=== PATIENT | female | born 1935 | race Caucasian/White ===

== ENCOUNTER → 2016-12-24 | Outpatient (CLI) | payer OTHER ==
[~2016-12-24] MED LIST: AMLO-110 PO; ATOR10TA82 PO; GLC/500 PO; LOSA50TA6 PO; LSX20 PO; METO100T14 PO; POTA-65 PO
--- NOTE | 2016-12-24 16:24 | MAMMOGRAPHY REPORT ---
BILATERAL DIGITAL SCREENING MAMMOGRAM WITH CAD: 12/24/2016 CLINICAL HISTORY: Routine screening. TECHNIQUE: Bilateral CC and MLO views were obtained. Current study was also evaluated with a Comput er Aided Detection (CAD) system. COMPARISON: Comparison is made to exams dated: 12/19/2015 mammogram, 07/06/2013 mammogram, 2 mammogram, 06/22/2011 ultrasound, 06/22/2011 mammogram, and 06/19/2011 mammogram - [facility]. BREAST COMPOSITION: There are scattered areas of fibroglandular density in both breasts. FINDINGS: The parenchymal pattern is unchanged. No developing mass, architectural distortion or clu ster of suspicious microcalcifications is seen in either breast. IMPRESSION: ACR BI-RADS CATEGORY 2: BENIGN There is no mammographic evidence of malignancy. A 1 year screening mammogram is recommended. The p atient will receive written notification of the results. Approximately 10% of breast cancers are not detected with mammography. A negative mammographic repor t should not delay biopsy if a clinically suggestive mass is present. Tonia Saldivar M.D. ay/:12/24/2016 15:33:22 Cop Examiner: Brennan Donohue RT(R)(M), [facility] letter sent: Normal 1/2 BI-RADS Code: ACR BI-RADS Category 2: Benign
== END | disposition home or self-care (01) ==
LOC: C.MAMM 09:51
PROVIDERS: ATTEND Nurse Practitioner Family
DX: Z12.31 Encounter for screening mammogram for malignant neoplasm of breast (principal)

== ENCOUNTER → 2018-01-06 | Outpatient (CLI) | payer OTHER ==
--- NOTE | 2018-01-07 12:47 | MAMMOGRAPHY REPORT ---
BILATERAL DIGITAL SCREENING MAMMOGRAM TOMOSYNTHESIS WITH CAD: 01/06/2018 CLINICAL HISTORY: Routine screening. Patient has no complaints. TECHNIQUE: Breast tomosynthesis in addition to standard 2D mammography was performed. Current study was also evaluated with a Computer Aided Detection (CAD) system. COMPARISON: Comparison is made to exams dated: 12/24/2016 mammogram, 12/19/2015 mammogram, 07/06/2013 mammogram, 07/02/2012 mammogram, 06/22/2011 mammogram, and 06/19/2011 mammogram - [facility]. BREAST COMPOSITION: There are scattered areas of fibroglandular density in both breasts. FINDINGS: No suspicious mass, architectural distortion or cluster of microcalcifications is seen. IMPRESSION: ACR BI-RADS CATEGORY 1: NEGATIVE There is no mammographic evidence of malignancy. A 1 year screening mammogram is recommended. The pa tient will receive written notification of the results. Approximately 10% of breast cancers are not detected with mammography. A negative mammographic report should not delay biopsy if a clinically suggestive mass is present. Tonia rendon/abdelrahman:01/06/2018 16:52:17 Plastic Surgery Manager: Charisse ALLAN(R)(M), [facility] letter sent: Normal 1/2 BI-RADS Code: ACR BI-RADS Category 1: Negative
== END | disposition home or self-care (01) ==
LOC: C.MAMM 09:52
PROVIDERS: ATTEND Nurse Practitioner Family
DX: Z12.31 Encounter for screening mammogram for malignant neoplasm of breast (principal)

== ENCOUNTER 2022-04-21 12:03 | Inpatient (IN) ==
[2022-04-21] MEDS ORDERED: SODIUM CHLORIDE 0.9% 1000ML 1,000 ML IV STA (12:11)
--- NOTE | 2022-04-21 12:35 | Emergency Department Note ---
Impression & Plan Hypoxia, Fever, Bilateral pneumonia ED Provider Note INFORMANT: Patient and daughter ED PROVIDER(S): Jose Elias Cruz MD CHIEF COMPLAINT: Fever PLAN: Disposition: Admitted Condition: Good Outpatient prescription management: none Referral: None MEDICAL DECISION MAKING: Patient presented because of a flulike illness and fever. She was found to be hypoxic. The patient had a work-up initiated. Chest x-ray, laboratory testing, and blood cultures performed. Bio fire swab performed. Bio fire swab did show a rhinovirus infection. CBC and chemistry panel were unremarkable. The carissa ent's chest x-ray was concerning to me and a CT scan of the chest without contrast was performed. There is bilateral pneumonia present. The patient did respond well to supplemental oxygen. She was in good spirits. I did discuss the need for her to be admitted to the hospital and daughter was present. They were in agreement. The patient was treated with IV doxycycline and IV cefepime. Consultation was made with Dr. Bart Davila of the [facility] service. Patient was evaluated in the ER for further management. After patient was evaluated by internal medicine she did require additional supplemental oxygen. Patient's vital signs and EMR noted that she was tachycardic. Patient was transferred to the PCU Triage Nursing notes reviewed and agree them. Vital Signs: reviewed and remarkable for hypoxia Differential diagnosis: Viral syndrome, otitis, pharyngitis, pneumonia, influenza, meningitis, urinary tract infection, sepsis, bacteremia, as well as other pathologies. Diagnostics interpreted by me: ECG: none Cardiac Monitoring: Cardiac monitoring ordered by me: The patient was placed on continuous cardiac monitoring and observed. It revealed a normal sinus rhythm at 82 beats per minute without ectopy or evidence of dysrhythmia. Imaging studies: CT scan and chest x-ray as above HPI: The patient is a 87year old female who presents to the Emergency Room with complaints of fever. This started 4 days ago and is worsening. The patient also notes the following associated symptoms, nausea that resolved, cold symptoms. The patient has found no relieving factors. Current pain is rated as 0/10. Patient reportedly was tested negative at home for COVID twice. She was in contact with a friend that had a flulike illness and was tested for negative for COVID. That contact's illness has resolved. Pt denies LOC, headache, diaphoresis, visual changes, neck pain, chest pain, breathing difficulties, current vomiting, abdominal pain, back pain, melena, hematochezia, urinary symptoms, numbness, weakness, lymphadenopathy, rash, or other complaints. ROS: See above HPI for pertinent positives & negatives. A total of 10 systems reviewed and were otherwise negative. PAST MEDICAL HISTORY:See Below , hypertension, diabetes PAST SURGICAL HISTORY:See Below, FAMILY HISTORY:See Below SOCIAL HISTORY:See Below, retired HOME MEDICATIONS:See Below ALLERGIES:See Below VITALS:See Below PHYSICAL EXAMINATION: GENERAL: Awake, alert, mildly ill-appearing, in no distress HENT: Normocephalic, atraumatic. Oropharynx unremarkable. EYES: Normal conjunctiva. Sclera non-icteric. NECK: Inspection normal. Non-tender. Supple. No nuchal rigidity. FROM. No masses. RESPIRATORY: Diminished bilaterally otherwise clear to auscultation. No wheezes. No rales. Normal respiratory effort. CARDIAC: Normal rate. Normal rhythm. No murmurs. No rubs. Extremities warm and well perfused. Pulses equal. No JVD. GI: Soft, non-distended. No tenderness to palpation. No rebound or guarding. No masses. RECTAL: Deferred. MUSCULOSKELETAL: Atraumatic. Chest examination reveals no tenderness. The back is symmetrical on inspection without obvious abnormality. There is no CVA tenderness to palpation. No joint edema. LOWER EXTREMITIES: Calves are equal size bilaterally and non-tender. No edema. No discoloration. NEURO: Normal sensorium. No sensory or motor deficits noted. SKIN: No rash or jaundice noted. Jose Elias Cruz MD Past Med/Surg History Medical History Diabetes History of DVT (deep vein thrombosis) AGE 21'S History of kidney stones HTN (hypertension) Hypercholesteremia Surgical History History of cataract surgery History of cholecystectomy History of colonoscopy History of D&C MULTIPLE History of eye surgery History of hysterectomy History of vein stripping 30 YR AGO Social History Smoking Status: Never smoker Second Hand Exposure: Yes (hx); Hx Alcohol Use: No Hx Substance Use: No Preferred Language: Irish Communication Ability: Effective Bus Assistant Required: No Beliefs That Will Affect Care: None Current Living Situation: Alone Feels Safe at Home: Yes Assistive Devices: Denture - Upper and Glasses Allergies Allergies Allergy/AdvReac Type Severity Reaction Status Date / Time Sulfa (Sulfonamide Allergy Unknown RASH Verified 04/21/22 15:57 Antibiotics) Home Meds Home Medications Medication Instructions Recorded Confirmed amlodipine 5 mg tablet 5 mg PO HS 06/28/21 04/21/22 aspirin 81 mg tablet,delayed 81 mg PO HS 06/28/21 04/21/22 release coenzyme Q10 100 mg capsule 100 mg PO DAILY 06/28/21 04/21/22 (CoQ-10) furosemide 40 mg tablet 40 mg PO QAM 06/28/21 04/21/22 losartan 50 mg tablet 50 mg PO QAM 06/28/21 04/21/22 metformin 500 mg tablet 500 mg PO BID 06/28/21 04/21/22 metoprolol succinate 100 mg 100 mg PO QAM 06/28/21 04/21/22 tablet,extended release 24 hr potassium chloride 20 mEq 20 meq PO QAM 06/28/21 04/21/22 tablet,extended release(part/cryst) (Klor-Con M) vitamin E 670 mg (1,000 unit) 1,000 unit PO DAILY 06/28/21 04/21/22 capsule atorvastatin 10 mg tablet 10 mg PO DAILY 04/21/22 04/21/22 Results & Data (ED) Vital Signs Vital Signs - 24 hr 04/21/22 12:07 04/21/22 12:11 04/21/22 13:34 Temperature 36.6 C Temperature Source Oral Pulse Rate 100 H Pulse Rate [Apical] 88 85 Pulse Rhythm Regular Pulse Strength Normal Respiratory Rate 16 20 20 Respiratory Effort / Characteristics Non-Labored Spontaneous Non-Labored Spontaneous Non-Labored Spontaneous Respiratory Depth Normal Normal Normal Respiratory Pattern Regular Regular Regular Blood Pressure 117/56 L Blood Pressure [Right Arm] 120/87 136/56 L Blood Pressure Mean 76 Blood Pressure Mean [Right Arm] 98 82 Blood Pressure Position Sitting Blood Pressure Position [Right Arm] Sitting Sitting Pulse Oximetry 88 L 95 94 Oxygen Delivery Method Room Air Nasal Cannula Nasal Cannula Oxygen Flow Rate 3 3 Sepsis Recent Fever Within 48 Hours No Sepsis New/Unexplained Change in Mental Status No Sepsis Action Taken by Nursing No Action Required 04/21/22 15:00 Temperature Temperature Source Pulse Rate Pulse Rate [Apical] 93 H Pulse Rhythm Pulse Strength Respiratory Rate 18 Respiratory Effort / Characteristics Non-Labored Spontaneous Respiratory Depth Normal Respiratory Pattern Regular Blood Pressure Blood Pressure [Right Arm] 159/57 H Blood Pressure Mean Blood Pressure Mean [Right Arm] 91 Blood Pressure Position Blood Pressure Position [Right Arm] Sitting Pulse Oximetry 93 Oxygen Delivery Method Nasal Cannula Oxygen Flow Rate 3 Sepsis Recent Fever Within 48 Hours Sepsis New/Unexplained Change in Mental Status Sepsis Action Taken by Nursing Laboratory Data Result diagrams: 04/21/22 12:26 04/21/22 12: Lab Results 04/21/22 04/21/22 04/21/22 Range/Units 12: 12: 12: WBC 8.70 (4.8-10.8) K/ul RBC 4.21 (3.93-5.22) M/uL Hgb 11.9 L (12.0-16.0) g/dl Hct 37.2 (34.1-44.9) % MCV 88.4 (80.0-100.0) fL MCH 28.3 (25.0-34.0) pg MCHC 32.0 (32.0-36.0) g/dL RDW Std Deviation 45.6 (36.4-46.3) fL RDW Coeff of Isa 14.3 (11.5-14.5) % Plt Count 128 L (130-400) K/uL MPV 11.9 (9.4-12.3) fL Immature Gran % (Auto) 1.1 % Neut % (Auto) 76.7 % Lymph % (Auto) 13.1 % Camp % (Auto) 8.6 % Eos % (Auto) 0.2 % Baso % (Auto) 0.3 % Neut # (Auto) 6.66 H (1.4-6.5) K/uL Lymph # (Auto) 1.14 L (1.2-3.4) K/uL Camp # (Auto) 0.75 (0.24-0.82) K/uL Eos # (Auto) 0.02 (0-0.50) K/uL Baso # (Auto) 0.03 (0-0.2) K/uL Immature Gran # (Auto) 0.10 H (0.00-0.02) K/uL Sodium 135 L (136-145) mmol/L Potassium 3.5 (3.5-5.1) mmol/L Chloride 100 (98-107) mmol/L Carbon Dioxide 27 (21-32) mmol/L Anion Gap 8 (3-11) BUN 20 (6-23) mg/dl Creatinine 1.21 H (0.6-1.2) mg/dl Est Cr Clr Drug Dosing 32.9 ml/min Est GFR ( Amer) 46.9 ml/min Est GFR (Non-Af Amer) 40.5 ml/min BUN/Creatinine Ratio 16.5 (10-20) Glucose 133 H (70-99(Fasting)) mg/dl Lactate 1.5 (0.4-2.0) mmol/L Calcium 9.7 (8.5-10.1) mg/dl Total Bilirubin 0.7 (0.2-1.0) mg/dl AST 22 (13-39) U/L ALT 17 (7-52) U/L Alkaline Phosphatase 54 (34-104) U/L Troponin I High Sens 12.0 (0-14) pg/ml Total Protein 7.9 (6.0-8.3) gm/dl Albumin 3.5 (3.4-5.0) gm/dl Globulin 4.4 H (2.5-4.0) gm/dl Albumin/Globulin Ratio 0.8 L (0.9-2) Procalcitonin (0-0.5) ng/ml Adenovirus (PCR) (NotDetected) B. pertussis DNA (PCR) (NotDetected) B.parapertussis DNA PCR (NotDetected) C. pneumoniae DNA (PCR) (NotDetected) Coronavirus OC43 (PCR) (NotDetected) Coronavirus HKU1 (PCR) (NotDetected) Coronavirus 229E (PCR) (NotDetected) SARS-CoV-2 (PCR) (NotDetected) Coronavirus NL63 (PCR) (NotDetected) Human Metapneumovir PCR (NotDetected) Influenza Type A (PCR) (NotDetected) Influenza Type B (PCR) (NotDetected) M. pneumoniae (PCR) (NotDetected) Parainfluenza 1 (PCR) (NotDetected) Parainfluenza 2 (PCR) (NotDetected) Parainfluenza 3 (PCR) (NotDetected) Parainfluenza 4 (PCR) (NotDetected) RSV (PCR) (NotDetected) Entero/Rhino (PCR) (NotDetected) 04/21/22 04/21/22 Range/Units 12:26 12:26 WBC (4.8-10.8) K/ul RBC (3.93-5.22) M/uL Hgb (12.0-16.0) g/dl Hct (34.1-44.9) % MCV (80.0-100.0) fL MCH (25.0-34.0) pg MCHC (32.0-36.0) g/dL RDW Std Deviation (36.4-46.3) fL RDW Coeff of Isa (11.5-14.5) % Plt Count (130-400) K/uL MPV (9.4-12.3) fL Immature Gran % (Auto) % Neut % (Auto) % Lymph % (Auto) % Camp % (Auto) % Eos % (Auto) % Baso % (Auto) % Neut # (Auto) (1.4-6.5) K/uL Lymph # (Auto) (1.2-3.4) K/uL Camp # (Auto) (0.24-0.82) K/uL Eos # (Auto) (0-0.50) K/uL Baso # (Auto) (0-0.2) K/uL Immature Gran # (Auto) (0.00-0.02) K/uL Sodium (136-145) mmol/L Potassium (3.5-5.1) mmol/L Chloride (98-107) mmol/L Carbon Dioxide (21-32) mmol/L Anion Gap (3-11) BUN (6-23) mg/dl Creatinine (0.6-1.2) mg/dl Est Cr Clr Drug Dosing ml/min Est GFR ( Amer) ml/min Est GFR (Non-Af Amer) ml/min BUN/Creatinine Ratio (10-20) Glucose (70-99(Fasting)) mg/dl Lactate (0.4-2.0) mmol/L Calcium (8.5-10.1) mg/dl Total Bilirubin (0.2-1.0) mg/dl AST (13-39) U/L ALT (7-52) U/L Alkaline Phosphatase (34-104) U/L Troponin I High Sens (0-14) pg/ml Total Protein (6.0-8.3) gm/dl Albumin (3.4-5.0) gm/dl Globulin (2.5-4.0) gm/dl Albumin/Globulin Ratio (0.9-2) Procalcitonin 6.43 H (0-0.5) ng/ml Adenovirus (PCR) Not Detected (NotDetected) B. pertussis DNA (PCR) Not Detected (NotDetected) B.parapertussis DNA PCR Not Detected (NotDetected) C. pneumoniae DNA (PCR) Not Detected (NotDetected) Coronavirus OC43 (PCR) Not Detected (NotDetected) Coronavirus HKU1 (PCR) Not Detected (NotDetected) Coronavirus 229E (PCR) Not Detected (NotDetected) SARS-CoV-2 (PCR) Not Detected (NotDetected) Coronavirus NL63 (PCR) Not Detected (NotDetected) Human Metapneumovir PCR Not Detected (NotDetected) Influenza Type A (PCR) Not Detected (NotDetected) Influenza Type B (PCR) Not Detected (NotDetected) M. pneumoniae (PCR) Not Detected (NotDetected) Parainfluenza 1 (PCR) Not Detected (NotDetected) Parainfluenza 2 (PCR) Not Detected (NotDetected) Parainfluenza 3 (PCR) Not Detected (NotDetected) Parainfluenza 4 (PCR) Not Detected (NotDetected) RSV (PCR) Not Detected (NotDetected) Entero/Rhino (PCR) DETECTED A* (NotDetected) Administered Medications Sodium Chloride (Nss 1000ml) 1,000 mls @ 125 mls/hr IV .Q8H STA Stop: 04/21/22 20:10 Last Admin: 04/21/22 12:31 Dose: 125 mls/hr Documented By: ELICIA Discontinued Medications Albuterol (Albuterol 0.083% Nebu Soln 3 Ml Vial) Confirm Administered Dose 2.5 mg .ROUTE .STK-MED ONE Stop: 04/21/22 16:49 Last Admin: 04/21/22 16:54 Dose: 2.5 mg Documented By: WILL Furosemide (Furosemide 40 Mg/4 Ml Vial) 40 mg IV ONE ONE Stop: 04/21/22 15:43 Last Admin: 04/21/22 15:50 Dose: 40 mg Documented By: ELICIA Cefepime HCl (Maxipime) 2,000 mg in 20 mls @ 5 mls/min IV NOW STA; Protocol Stop: 04/21/22 15:16 Last Admin: 04/21/22 15:20 Dose: 5 mls/min Documented By: ELICIA Doxycycline Hyclate 100 mg/ (Dextrose) 110 mls @ 50 mls/hr IV NOW STA Stop: 04/21/22 17:24 Last Admin: 04/21/22 15:50 Dose: 50 mls/hr Documented By: ELICIA Imaging Data Radiologist's Impression: Chest X-Ray 04/21/22 12:11 XR chest 1V portable CLINICAL HISTORY: Fever,hypoxia TECHNIQUE: Single frontal radiograph of the chest was obtained. Comparison: None available at the time of this dictation. FINDINGS: No lines and tubes are seen. Cardiomegaly is noted. The lungs are clear. No ev idence of pleural effusion or pneumothorax. IMPRESSION: No acute chest disease. ACT 112: Negative or not required by law. Electronically signed by: Fuad Alanis M.D. 04/21/2022 1:[address] 04/21/22 14:04 CT chest diagnostic wo con CLINICAL HISTORY: fever,hypoxia, yennifer WBC and procal. ? PNA TECHNIQUE: Multidetector row helical CT of the chest was performed. Coronal and sagittal reformations were obtained. Automated dose lowering techniques and/or adjustment according to patient size were utilized for this exam. CT DOSE: 274.99 mGy.cm Comparison: Comparison is made to chest radiograph of 04/21/2022 and 12/22/2015 FINDINGS: Lungs and pleura: Scattered foci of nodular consolidation in the bilateral lungs. Heart and pericardium: Cardiomegaly is seen with biatrial enlargement. Vessels: Moderate atherosclerotic changes in the aorta and coronary arteries. Mediastinum and jacob: Subcentimeter lymph nodes are seen. Chest wall and lower neck: Unremarkable. Abdomen: Unremarkable. Bones: Degenerative changes in the thoracic spine. IMPRESSION: Multifocal airspace opacities are seen compatible with pneumonia and/or aspiration. ACT 112: Negative or not required by law. Electronically signed by: Fuad Alanis M.D. 04/21/2022 3:09 PM Discharge Plan Visit Data Chief Complaint: Fever Stated Complaint: FEVER, COUGH, WEAK ED Provider: Jose Elias Cruz Discharge Problem: Hypoxia, Fever, Bilateral pneumonia
[2022-04-21 12:58] LABS: Hematocrit (blood only) 37.2 % (34.1-44.9); Hemoglobin 11.9 g/dl (12.0-16.0); Mean Corpuscular Hemoglobin 28.3 pg (25.0-34.0); Mean Corpuscular Volume 88.4 fL (80.0-100.0); Mean Platelet Volume 11.9 fL (9.4-12.3); Platelet Count 128 K/uL (130-400); RDW Coefficient of Variation 14.3 % (11.5-14.5); RDW Standard Deviation 45.6 fL (36.4-46.3); Red Blood Count 4.21 M/uL (3.93-5.22)
[2022-04-21 13:04] LABS: Albumin Globulin Ratio 0.8 (0.9-2); Albumin Level 3.5 gm/dl (3.4-5.0); BUN Creatinine Ratio 16.5 (10-20); Bilirubin,Total 0.7 mg/dl (0.2-1.0); Calcium 9.7 mg/dl (8.5-10.1); Creatinine Clr Calc Pharmacy 32.9 ml/min; Est GFR (African American) 46.9 ml/min; Est GFR (Non-African American) 40.5 ml/min; Globulin 4.4 gm/dl (2.5-4.0); Potassium 3.5 mmol/L (3.5-5.1); Total Protein 7.9 gm/dl (6.0-8.3)
[2022-04-21 13:15] LABS: Basophils # (auto) 0.03 K/uL (0-0.2); Basophils % (auto) 0.3 %; Eosinophils # (auto) 0.02 K/uL (0-0.50); Eosinophils % (auto) 0.2 %; Immature Granulocytes % (auto) 1.1 %; Lymphocytes # (auto) 1.14 K/uL (1.2-3.4); Lymphocytes % (auto) 13.1 %; Monocytes # (auto) 0.75 K/uL (0.24-0.82); Monocytes % (auto) 8.6 %; Neutrophils # (auto) 6.66 K/uL (1.4-6.5); Neutrophils % (auto) 76.7 %
--- NOTE | 2022-04-21 13:49 | XRay Report ---
XR chest 1V portable CLINICAL HISTORY: Fever,hypoxia TECHNIQUE: Single frontal radiograph of the chest was obtained. Comparison: None available at the time of this dictation. FINDINGS: No lines and tubes are seen. Cardiomegaly is noted. The lungs are clear. No evidence of pleural effus ion or pneumothorax. IMPRESSION: No acute chest disease. ACT 112: Negative or not required by law. Electronically signed by: Fuad Alanis M.D. 04/21/2022 1:47 PM
--- NOTE | 2022-04-21 13:50 | History & Physical Report ---
Date of Service April 21, 2022 Assessment & Plan (1) Hypercholesteremia: (2) HTN (hypertension): (3) Diabetes: Plan: -Hold CHANGE ATTENDANT metformin - (4) Hypoxia: Plan: -Admit to medicine -Patient found to be hypoxic at 88% on RA, currently stable on 3L NC -Likely due to bacterial pneumonia noted on CXR and procal of 6.43 -Started on in the ED -PRN albuterol, incentive spirometry, flutter therapy -Wean O2 as able -Follow infectious RODRIGUEZ and tailor abx as able (5) Fever: Plan: -See hypoxia History of Present Illness Chief Complaint: Fever Primary Care Provider: VINICIO Purdy Beata is an 87 year old female with a PMH significant for DM, HTN, hypercholesteremia, kidney stones, and previous DVT's who presented to the [facility] ED on 04/21/22 with a chief complaint of fever and illness. IN the ED the patient was found to be hypoxic with an SpO2 of 88% on RA and was placed on 3L NC. Labs were significant for a procal of 6.43, chest xray revealed She was given a 1L NSS bolus Allergies Allergy/AdvReac Type Severity Reaction Status Date / Time Sulfa (Sulfonamide Allergy Unknown RASH Verified 07/19/21 07:01 Antibiotics) Home Medications Medication Instructions Recorded Confirmed Type amlodipine 5 mg tablet 5 mg PO HS 06/28/21 07/19/21 History aspirin 81 mg tablet,delayed 81 mg PO HS 06/28/21 07/19/21 History release coenzyme Q10 100 mg capsule 100 mg PO DAILY 06/28/21 07/19/21 History (CoQ-10) furosemide 40 mg tablet 40 mg PO QAM 06/28/21 07/19/21 History losartan 50 mg tablet 50 mg PO QAM 06/28/21 07/19/21 History metformin 500 mg tablet 500 mg PO QAM 06/28/21 07/19/21 History metoprolol succinate 100 mg 100 mg PO QAM 06/28/21 07/19/21 History tablet,extended release 24 hr potassium chloride 20 mEq 20 meq PO HS 06/28/21 07/19/21 History tablet,extended release(part/cryst) (Klor-Con M) vitamin E 670 mg (1,000 unit) 1,000 unit PO DAILY 06/28/21 07/19/21 History capsule Past Med/Surg History Medical History (Updated 04/21/22 @ 13:49 by Dereck Gonsales PA-C) Diabetes History of DVT (deep vein thrombosis) AGE 21'S History of kidney stones HTN (hypertension) Hypercholesteremia Surgical History History of cataract surgery History of cholecystectomy History of colonoscopy History of D&C MULTIPLE History of eye surgery History of hysterectomy History of vein stripping 30 YR AGO Social History Smoking Status: Never smoker Second Hand Exposure: Yes (hx); Hx Alcohol Use: No Hx Substance Use: No Preferred Language: Swedish Communication Ability: Effective Plate Finisher Required: No Beliefs That Will Affect Care: None Current Living Situation: Alone Feels Safe at Home: Yes Assistive Devices: Denture - Upper and Glasses Results & Data Results & Data ([facility]) Vital Signs (Past 12 Hours) Vital Signs Temp Pulse Pulse Resp BP BP Pulse Ox 04/21/22 13:34 85 20 136/56 L 94 04/21/22 12:11 88 20 120/87 95 04/21/22 12:07 36.6 C 100 H 16 117/56 L 88 L O2 Del Method O2 Flow Rate 04/21/22 13:34 Nasal Cannula 3 04/21/22 12:11 Nasal Cannula 3 04/21/22 12:07 Room Air Laboratory Results Abnormal lab results 04/21/22 04/21/22 04/21/22 Range/Units 12:26 12:26 12:26 Hgb 11.9 L (12.0-16.0) g/dl Plt Count 128 L (130-400) K/uL Neut # (Auto) 6.66 H (1.4-6.5) K/uL Lymph # (Auto) 1.14 L (1.2-3.4) K/uL Immature Gran # (Auto) 0.10 H (0.00-0.02) K/uL Sodium 135 L (136-145) mmol/L Creatinine 1.21 H (0.6-1.2) mg/dl Glucose 133 H (70-99(Fasting)) mg/dl Globulin 4.4 H (2.5-4.0) gm/dl Albumin/Globulin Ratio 0.8 L (0.9-2) Procalcitonin 6.43 H (0-0.5) ng/ml PG Care Time/CCT Total # of Minutes Spent Total Time Spent with Patient: Total time spent is greater than 50% in coordination of care (as documented) at patient's floor/unit and/or counseling patient: Coding Diagnoses Hypercholesteremia E78.00 HTN (hypertension) I10 Diabetes E11.9 Hypoxia R09.02 Fever R50.9
[2022-04-21 13:52] LABS: Adenovirus PCR Not Detected (NotDetected); Bordetella parapertussis PCR Not Detected (NotDetected); Bordetella pertussis PCR Not Detected (NotDetected); Chlamydia pneumoniae PCR Not Detected (NotDetected); Coronavirus 229E PCR Not Detected (NotDetected); Coronavirus CoV-2 (COVID19)PCR Not Detected (NotDetected); Coronavirus HKU1 PCR Not Detected (NotDetected); Coronavirus NL63 PCR Not Detected (NotDetected); Coronavirus OC43PCR Not Detected (NotDetected); Human Metapneumovirus PCR Not Detected (NotDetected); Influenza A PCR Not Detected (NotDetected); Influenza B PCR Not Detected (NotDetected); Mycoplasma pneumoniae PCR Not Detected (NotDetected); Parainfluenza Virus 1 PCR Not Detected (NotDetected); Parainfluenza Virus 2 PCR Not Detected (NotDetected); Parainfluenza Virus 3 PCR Not Detected (NotDetected); Parainfluenza Virus 4 PCR Not Detected (NotDetected); Respiratory Syncytial VirusPCR Not Detected (NotDetected)
[2022-04-21 13:57] LABS: Rhinovirus/Enterovirus PCR DETECTED (NotDetected)
--- NOTE | 2022-04-21 14:17 | History & Physical Report ---
Date of Service April 21, 2022 Assessment & Plan (1) Acute respiratory failure with hypoxia: Plan: -Admit to PCU/Tele -Currently afebrile, hemodynamically stable, and stable on 3L NC, not on baseline O2 at home -Chest Xray showing scattered patchy infiltrates with small left pleural effusion -Infectious workup started in ED, will add on sputum culture with gram stain now -Started on Cefepime and Doxy in the ED, will switch to Zosyn for now with possible aspiration -Given 1L NSS bolus in the ED, will hold additional IV fluids for now as she appears volume up on imaging and exam -Tailor abx as able -Ordered Robitussin, flutter therapy, chest PT, and scheduled albuterol -Giving 40 mg IV lasix now, patient normally on 40 mg PO daily, monitor for response -AM CBC and CMP (2) Aspiration pneumonia: Plan: -See AHRF with hypoxia above (3) Pleural effusion, left: Plan: -See AHRF with hypoxia above (4) HTN (hypertension): Plan: -Patient normally on Amlodipine, metoprolol, lasix, and losartan at home -Will hold amlodipine, losartan and PO lasix for now to avoid hypotension with current illness -Continue with metoprolol for now (5) Diabetes: Plan: --Goal BSG Range: Low 110 mg/dL, High 140 mg/dL --Correction Factor: 30 mg/dL/unit --Carbohydrate ratio = 10 g/unit --BSGs ACHS if eating, q6h if npo (6) Discoid lupus: Plan: -Not on current medical therapy (7) GERD (gastroesophageal reflux disease): Plan: -Added PO protonix while admitted (8) Hypercholesteremia: Plan: -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 Davila at the time of admission History of Present Illness Chief Complaint: Fever and URI symptoms Primary Care Provider: VINICIO Purdy is an 87 year old female with a PMH significant for Discoid lupus, GERD, EVELYN, HFpEF, CKD III, DMII, CAD, HTN, previous DVT, hypercholesterolemia who presented to the [facility] ED on 04/21/22 with complaints of URI symptoms, fever, and weakness. In the ED the patient was found to be hypoxic at 88% on RA, she was placed on 3L NC and remained stable. Her laboratory results were significant for a procal of 6.43 and viral panel positive for Rhinovirus. CXR was read as unremarkable but CTof the chest WO contrast was remarkable for patchy airspace disease, likely pneumonia. The patient was started Cefepime and Doxycycline. At the time of the exam the patient was resting in bed in no acute distress with her daughter sitting bedside. They state that she began having URI symptoms and fever approximately 5 days ago. She was recenetly in close contact with a friend who tested positive for rhinovirus. She has been having a productive cough with white sputum, fever of 102 but has not been very SOB. She had one episode of vomiting on Saturday and thinks she may have choked when it occurred. She denies lightheadedness, dizziness, chest pain, pleuritic chest pain, dysuria, hematuria, and recent falls. Allergies Allergy/AdvReac Type Severity Reaction Status Date / Time Sulfa (Sulfonamide Allergy Unknown RASH Verified 04/21/22 15:57 Antibiotics) Home Medications Medication Instructions Recorded Confirmed Type amlodipine 5 mg tablet 5 mg PO HS 06/28/21 04/21/22 History aspirin 81 mg tablet,delayed 81 mg PO HS 06/28/21 04/21/22 History release coenzyme Q10 100 mg capsule 100 mg PO DAILY 06/28/21 04/21/22 History (CoQ-10) furosemide 40 mg tablet 40 mg PO QAM 06/28/21 04/21/22 History losartan 50 mg tablet 50 mg PO QAM 06/28/21 04/21/22 History metformin 500 mg tablet 500 mg PO BID 06/28/21 04/21/22 History metoprolol succinate 100 mg 100 mg PO QAM 06/28/21 04/21/22 History tablet,extended release 24 hr potassium chloride 20 mEq 20 meq PO QAM 06/28/21 04/21/22 History tablet,extended release(part/cryst) (Klor-Con M) vitamin E 670 mg (1,000 unit) 1,000 unit PO DAILY 06/28/21 04/21/22 History capsule atorvastatin 10 mg tablet 10 mg PO DAILY 04/21/22 04/21/22 History Past Med/Surg History Medical History Diabetes History of DVT (deep vein thrombosis) AGE 20'S History of kidney stones HTN (hypertension) Hypercholesteremia Surgical History History of cataract surgery History of cholecystectomy History of colonoscopy History of D&C MULTIPLE History of eye surgery History of hysterectomy History of vein stripping 30 YR AGO Social History Smoking Status: Never smoker Second Hand Exposure: Yes (hx); Hx Alcohol Use: No Hx Substance Use: No Preferred Language: Dominican Communication Ability: Effective Certification Engineer Required: No Beliefs That Will Affect Care: None Current Living Situation: Alone Feels Safe at Home: Yes Assistive Devices: Denture - Upper and Glasses Review of Systems Review of Systems: Denies current headache, changes in vision, hearing, taste, and smell, abdominal pain, nausea, diarrhea, hematemesis, melena, dysuria, hematuria, and recent falls. Physical Exam Physical Exam: Physical Exam: General: In no acute distress, stated age, well-nourished, good hygiene, non- toxic appearing HEENT: Normocephalic, atraumatic, no scleral icterus, pupils around round, symmetrical, and reactive to light, moist mucus membranes, trachea midline, no thyromegaly Chest/Pulm: No respiratory distress, symmetrical chest expansion, scattered wheezing/rhonchi throughout, expiratory wheezing noted throughout Cardiac: RRR, no murmurs noted, +1 pitting edema in the BL LEs Abdomen: Negative for ascites and bruising, normoactive bowel sounds, soft, non-tender to palpation throughout Musculoskeletal: Symmetrical and without signs of acute trauma, upper and lower extremities with full ROM, no atrophy, spasticity, or flaccidity Neuro: Alert and oriented to person, place, month, year, and president, no focal defects, CN II-XII tested and intact, finger to nose test negative, no tremors noted Psych: No acute distress, calm and cooperative during the exam Results & Data Results & Data ([facility]) Vital Signs (Past 12 Hours) Vital Signs Temp Pulse Pulse Resp BP BP Pulse Ox 04/21/22 13:34 85 20 136/56 L 94 04/21/22 12:11 88 20 120/87 95 08/13/22 12:07 36.6 C 100 H 16 117/56 L 88 L O2 Del Method O2 Flow Rate 04/21/22 13:34 Nasal Cannula 3 04/21/22 12:11 Nasal Cannula 3 04/21/22 12:07 Room Air Laboratory Results Abnormal lab results 04/21/22 04/21/22 04/21/22 Range/Units 12:26 12:26 12:26 Hgb 11.9 L (12.0-16.0) g/dl Plt Count 128 L (130-400) K/uL Neut # (Auto) 6.66 H (1.4-6.5) K/uL Lymph # (Auto) 1.14 L (1.2-3.4) K/uL Immature Gran # (Auto) 0.10 H (0.00-0.02) K/uL Sodium 135 L (136-145) mmol/L Creatinine 1.21 H (0.6-1.2) mg/dl Glucose 133 H (70-99(Fasting)) mg/dl Globulin 4.4 H (2.5-4.0) gm/dl Albumin/Globulin Ratio 0.8 L (0.9-2) Procalcitonin 6.43 H (0-0.5) ng/ml Entero/Rhino (PCR) (NotDetected) 04/21/22 Range/Units 12:26 Hgb (12.0-16.0) g/dl Plt Count (130-400) K/uL Neut # (Auto) (1.4-6.5) K/uL Lymph # (Auto) (1.2-3.4) K/uL Immature Gran # (Auto) (0.00-0.02) K/uL Sodium (136-145) mmol/L Creatinine (0.6-1.2) mg/dl Glucose (70-99(Fasting)) mg/dl Globulin (2.5-4.0) gm/dl Albumin/Globulin Ratio (0.9-2) Procalcitonin (0-0.5) ng/ml Entero/Rhino (PCR) DETECTED A* (NotDetected) Diagnostic Findings Chest X-Ray 04/21/22 12:11 XR chest 1V portable CLINICAL HISTORY: Fever,hypoxia TECHNIQUE: Single frontal radiograph of the chest was obtained. Comparison: None available at the time of this dictation. FINDINGS: No lines and tubes are seen. Cardiomegaly is noted. The lungs are clear. No evidence of pleural effusion or pneumothorax. IMPRESSION: No acute chest disease. ACT 112: Negative or not required by law. Electronically signed by: Fuad Alanis M.D. 04/21/2022 1:[address] 04/21/22 14:04 CT chest diagnostic wo con CLINICAL HISTORY: fever,hypoxia, yennifer WBC and procal. ? PNA TECHNIQUE: Multidetector row helical CT of the chest was performed. Coronal and sagittal reformations were obtained. Automated dose lowering techniques and/or adjustment according to patient size were utilized for this exam. CT DOSE: 274.99 mGy.cm Comparison: Comparison is made to chest radiograph of 04/21/2022 and 12/22/2015 FINDINGS: Lungs and pleura: Scattered foci of nodular consolidation in the bilateral lungs. Heart and pericardium: Cardiomegaly is seen with biatrial enlargement. Vessels: Moderate atherosclerotic changes in the aorta and coronary arteries. Mediastinum and jacob: Subcentimeter lymph nodes are seen. Chest wall and lower neck: Unremarkable. Abdomen: Unremarkable. Bones: Degenerative changes in the thoracic spine. IMPRESSION: Multifocal airspace opacities are seen compatible with pneumonia and/or aspiration. ACT 112: Negative or not required by law. Electronically signed by: Fuad Alanis M.D. 04/21/2022 3:09 PM Medications Administered Sodium Chloride (Nss 1000ml) 1,000 mls @ 125 mls/hr IV .Q8H STA Stop: 04/21/22 20:10 Last Admin: 04/21/22 12:31 Dose: 125 mls/hr Documented By: ELICIA Doxycycline Hyclate 100 mg/ (Dextrose) 110 mls @ 50 mls/hr IV NOW STA Stop: 04/21/22 17:24 Last Admin: 04/21/22 15:50 Dose: 50 mls/hr Documented By: ELICIA ECG Additional Comments: Getting admission EKG Code Status & VTE Plan Code Status Full code VTE Prophylaxis Plan VTE Prophylaxis will be ordered: Yes PG Care Time/CCT Total # of Minutes Spent Total Time Spent with Patient: Total time spent is greater than 50% in coordination of care (as documented) at patient's floor/unit and/or counseling patient: Coding [place] [address] Initial Inpt Care Lvl 1 Patient Type Established Medical Decision Making Moderate Complexity Diagnoses Acute respiratory failure with hypoxia J96.01 Aspiration pneumonia J69.0 Pleural effusion, left J90 HTN (hypertension) I10 Diabetes E11.9 Discoid lupus L93.0 GERD (gastroesophageal reflux disease) K21.9 Hypercholesteremia E78.00 CAD (coronary artery disease) I25.10
--- NOTE | 2022-04-21 15:10 | CT Scan Report ---
CT chest diagnostic wo con CLINICAL HISTORY: fever,hypoxia, yennifer WBC and procal. ? PNA TECHNIQUE: Multidetector row helical CT of the chest was performed. Coronal and sagittal reformations were obtained. Automated dose lowering techniques and/or adjustment according to patient size were u tilized for this exam. CT DOSE: 274.99 mGy.cm Comparison: Comparison is made to chest radiograph of 04/21/2022 and 12/22/2015 FINDINGS: Lungs and pleura: Scattered foci of nodular consolidation in the bilateral lungs. Heart and pericardium: Cardiomegaly is seen with biatrial enlargement. Vessels: Moderate atherosclerotic changes in the aorta and coronary arteries. Mediastinum and jacob: Subcentimeter lymph nodes are seen. Chest wall and lower neck: Unremarkable. Abdomen: Unremarkable. Bones: Degenerative changes in the thoracic spine. IMPRESSION: Multifocal airspace opacities are seen compatible with pneumonia and/or aspiration. ACT 112: Negative or not required by law. Electronically signed by: Fuad Alanis M.D. 04/21/2022 3:09 PM
[2022-04-21] MEDS ORDERED: DOXYCYCLINE HYCLATE 100 MG in DEXTROSE 5% 100 ML IV STA (15:13)
[2022-04-21] MEDS ORDERED: CEFEPIME 2,000 MG/20 ML VIAL IV STA (15:13)
[2022-04-21] MEDS ORDERED: FUROSEMIDE 40 MG/4 ML VIAL IV ONE (15:42)
[2022-04-21] MEDS ORDERED: ALBUTEROL 0.083% NEBU SOLN 3 ML VIAL ONE (16:48)
[2022-04-21] MEDS ORDERED: GLUCOSE 10 TAB/TUBE PO PRN (17:38)
[2022-04-21] MEDS ORDERED: DEXTROSE 50% 50 ML SYRINGE IV PRN (17:38)
[2022-04-21] MEDS ORDERED: GLUCAGON FOR INJ 1 MG VIAL SQ PRN (17:38)
[2022-04-21] MEDS ORDERED: GLUCOSE 40% GEL 15 GM TUBE PO PRN (17:38)
[2022-04-21] MEDS ORDERED: CARBOHYDRATES FOR HYPOGLYCEMIA PO PRN (17:38)
[2022-04-21] MEDS ORDERED: ALBUTEROL 0.5% NEB SOLN 2.5 MG/0.5 ML VIAL NEB STA (17:38)
[2022-04-21] MEDS ORDERED: PIPERACILLIN/TAZOBACTAM 3.375 GM in DEXTROSE 5% 100 ML IV STA (17:54)
[2022-04-21] MEDS ORDERED: PIPERACILLIN/TAZOBACTAM 4.5 GM in DEXTROSE 5% 100 ML IV ONE (18:00)
[2022-04-21] MEDS: guaiFENesin SUGAR FREE 100 MG/5 ML UDC PO SCH ×2 (18:02→22:45)
[2022-04-21] MEDS: ACETAMINOPHEN 325 MG TAB PO PRN (18:21)
[2022-04-21] MEDS: INSULIN ASPART PER UNIT SC SCH ×2 (18:34→20:55)
[2022-04-21] MEDS: PANTOprazole 40 MG TAB PO SCH (18:36)
[2022-04-21] MEDS ORDERED: ALBUTEROL 0.5% NEB SOLN 2.5 MG/0.5 ML VIAL NEB SCH (19:00)
[2022-04-21] MEDS: ASPIRIN 81 MG ECTAB PO SCH (20:52)
[2022-04-21] MEDS: ENOXAPARIN INJ 40 MG/0.4 ML SYR SQ SCH (20:52)
[2022-04-21 21:21] LABS: Base Excess ABG 7.9 mEq/L (-9-1.8); HCO3 ABG 31 mmol/L (19-24); Oxygen Saturation ABG 99.9 % (90-95); PCO2 ABG 35 mmHg (35-46); PO2 ABG 99 mmHg (80-95)
--- NOTE | 2022-04-21 21:23 | XRay Report ---
XR chest 1V portable CLINICAL HISTORY: f/u from morning cxr. Hypoxia. TECHNIQUE: Single frontal radiograph of the chest was obtained. Comparison: Comparison is made to chest radiograph 04/21/2022 FINDINGS: No lines and tubes are seen. The cardiomediastinal silhouette is normal. Airspace opacity in the righ t lower lung has increased from the prior exam. Left upper lobe focal airspace opacity is again noted . No evidence of pleural effusion or pneumothorax. IMPRESSION: Interval worsening of previously noted airspace opacities. ACT 112: Negative or not required by law. Electronically signed by: Fuad Alanis M.D. 04/21/2022 9:21 PM
[2022-04-21] MEDS ORDERED: ALBUTEROL 0.083% NEBU SOLN 3 ML VIAL NEB PRN (22:34)
[2022-04-21 22:39] LABS: Allen Test Pos (Pos)
[2022-04-21 22:46] LABS: pH ABG 7.55 (7.35-7.45)
[2022-04-21] MEDS: PIPERACILLIN/TAZOBACTAM 3.375 GM in DEXTROSE 5% 100 ML IV SCH (22:52)
--- NOTE | 2022-04-22 04:14 | Communication Note ---
Date of Service: April 22, 2022 87 year old female w/ diabetes, CAD and discoid lupus admitted for viral vs bacterial/aspiration pneumonia w/ acute hypoxic respiratory failure. She was i nitially on 2L nasal cannula, but quite significantly progressed to needing 40L high flow w/ FIO2 of 80%. Tmax 38.7C. Presumed sinus tach low 100s, up to 130s. Chest CT showing of multifocal opacities and repeat cxr shows worsening of opacities. She is on IV Zosyn only. MRSA nares is negative. ABG 7.55/35/99/31 notable for significant alkalosis (primarily respiratory w/ secondary metabolic) and very elevated A-a gradient. Patient was diuresed with 40mg IV Lasix yesterday, but hypervolemia is slightly lower on the differential. Most likely etiology of the increased O2 req is worsening pneumonia. PE and lupus flare are considered. Defer CTA chest for now. Checking repeat labs at 430AM, including ABG, procal, CRP. Will need ecg performed/uploaded. Because of neg nasal MRSA, will not be adding MRSA coverage. Reviewed hospital antibiotic stewardship policies. Will add atypical coverage by continuing doxycycline started in the ED. Follow labs and clinical status. FiO2 need for the 40L high flow has decreased slightly to 55%. Procal increased from 6 to 9. CRP is in the 20s. Consider pulm consult vs ICU upgrade if clinical status continues to worsen.
[2022-04-22 05:01] LABS: Base Excess ABG 7.2 mEq/L (-9-1.8); HCO3 ABG 30 mmol/L (19-24); Oxygen Saturation ABG 99.5 % (90-95); PCO2 ABG 35 mmHg (35-46); PO2 ABG 80 mmHg (80-95)
[2022-04-22 05:03] LABS: Hematocrit (blood only) 32.8 % (34.1-44.9); Hemoglobin 10.6 g/dl (12.0-16.0); Mean Corpuscular Hemoglobin 28.1 pg (25.0-34.0); Mean Corpuscular Hgb Conc 32.3 g/dL (32.0-36.0); Mean Platelet Volume 10.7 fL (9.4-12.3); Platelet Count 168 K/uL (130-400); RDW Coefficient of Variation 14.4 % (11.5-14.5); RDW Standard Deviation 45.9 fL (36.4-46.3); Red Blood Count 3.77 M/uL (3.93-5.22); White Blood Count 10.26 K/ul (4.8-10.8)
[2022-04-22 05:09] LABS: Allen Test POS (Pos)
[2022-04-22 05:10] LABS: pH ABG 7.54 (7.35-7.45)
[2022-04-22 05:24] LABS: Basophils # (auto) 0.04 K/uL (0-0.2); Basophils % (auto) 0.4 %; Eosinophils # (auto) 0.01 K/uL (0-0.50); Eosinophils % (auto) 0.1 %; Immature Granulocytes # (auto) 0.15 K/uL (0.00-0.02); Immature Granulocytes % (auto) 1.5 %; Lymphocytes # (auto) 1.08 K/uL (1.2-3.4); Lymphocytes % (auto) 10.5 %; Monocytes % (auto) 8.8 %; Neutrophils # (auto) 8.08 K/uL (1.4-6.5); Neutrophils % (auto) 78.7 %; RBC Morphology Unremarkable
[2022-04-22 05:25] LABS: Albumin Globulin Ratio 0.8 (0.9-2); BUN Creatinine Ratio 14.6 (10-20); Bilirubin,Total 0.8 mg/dl (0.2-1.0); C Reactive Protein 25.4 mg/dl (0-0.5); Calcium 8.9 mg/dl (8.5-10.1); Creatinine Clr Calc Pharmacy 32.2 ml/min; Est GFR (Non-African American) 39.7 ml/min; Potassium 3.1 mmol/L (3.5-5.1)
[2022-04-22] MEDS: guaiFENesin SUGAR FREE 100 MG/5 ML UDC PO SCH ×4 (05:29→21:39)
[2022-04-22] MEDS: PIPERACILLIN/TAZOBACTAM 3.375 GM in DEXTROSE 5% 100 ML IV SCH (05:30)
[2022-04-22] MEDS: POTASSIUM CHLORIDE / WTR 10 MEQ/100 ML PLCT IV SCH ×3 (06:28→08:34)
[2022-04-22] MEDS: DOXYCYCLINE HYCLATE 100 MG in DEXTROSE 5% 100 ML IV SCH ×2 (08:34→20:09)
--- NOTE | 2022-04-22 09:09 | XRay Report ---
XR chest 1V portable CLINICAL HISTORY: Follow-up alveolar opacity. COMPARISON STUDY: 04/21/2022 TECHNIQUE: 1 view of the chest FINDINGS: Single frontal view of the chest demonstrates the cardiomediastinal silhouette to be within normal li mits. Compared to previous examination, patchy alveolar opacities are again seen involving the right lower lobe and left lung apex. The remainder of the lungs are clear of alveolar opacities. There is m inimal blunting of left costophrenic angle suspicious for small left pleural effusion. There is no ev idence for vascular congestion. There is no acute osseous pathology. IMPRESSION: 1. Compared to previous examination, right lower lobe and left apical alveolar opacities are again se en suspicious for pneumonia. 2. Blunting of the left costophrenic angle suggesting a small left pleural effusion as well. ACT 112: Negative or not required by law. Electronically signed by: Joey Finney M.D. 04/22/2022 9:07 AM
[2022-04-22] MEDS ORDERED: ACETAMINOPHEN 1,000 MG/100 ML VIAL IV PRN (09:34)
[2022-04-22] MEDS: INSULIN ASPART PER UNIT SC SCH ×4 (09:53→21:05)
[2022-04-22] MEDS: ACETAMINOPHEN 325 MG TAB PO PRN (09:59)
[2022-04-22] MEDS: ATORVASTATIN 10 MG TAB PO SCH (10:00)
[2022-04-22] MEDS: FUROSEMIDE 40 MG TAB PO SCH (10:00)
[2022-04-22] MEDS: METOPROLOL SUCC 50MG EXT REL TAB PO SCH (10:00)
[2022-04-22] MEDS: PANTOprazole 40 MG TAB PO SCH (10:00)
--- NOTE | 2022-04-22 11:33 | Hospitalist Progress Note ---
Date of Service April 22, 2022 Assessment & Plan (1) Acute respiratory failure with hypoxia: Plan: Oxygen per nasal cannula to maintain saturation greater than 90%. Wean off as tolerated. Treat underlying respiratory issues. (2) Aspiration pneumonia: Plan: She probably has a component of pneumonia but it is not certain if it is aspiration related or not. She remains on Zosyn and doxycycline and will treat with parenteral steroid therapy in the event there is any associated pneumonitis.. Will repeat chest x-ray tomorrow, April 23. (3) Pleural effusion, left: Plan: Small. No evidence of congestive heart failure. No need for thoracentesis at this time. (4) HTN (hypertension): Plan: -Patient takes Amlodipine, metoprolol, lasix, and losartan at home -Will hold amlodipine, losartan and PO lasix for now to avoid hypotension with current illness -Continue with metoprolol for now (5) Diabetes: Plan: --Goal BSG Range: Low 110 mg/dL, High 140 mg/dL --Correction Factor: 30 mg/dL/unit --Carbohydrate ratio = 10 g/unit --BSGs ACHS if eating, q6h if npo (6) Discoid lupus: Plan: -Not on current medical therapy . Quiescent (7) GERD (gastroesophageal reflux disease): Plan: - PO protonix (8) Hypercholesteremia: Plan: Statin therapy (9) CAD (coronary artery disease): Plan: - Continue aspirin Plan Eventual discharge to home Admission and Anticipated Discharge Date Admission Date: April 21, 2022 Subjective Pleasant. Alert and oriented. No distress although she is requiring high flow oxygen. We will continue intravenous Zosyn and doxycycline. Repeat chest x-ray tomorrow. Potassium replacement ordered. Review of Systems Review of Systems: Constitutional-no fever or chills ENT-no blurred vision, no double vision, no epistaxis, no sore throat Respiratory-dyspnea on exertion. Productive cough. Cardiac-no palpitations, no chest pain, no syncope GI-no nausea, vomiting, diarrhea, melena, hematochezia -no urinary retention, no urinary incontinence, no dysuria, no hematuria Musculoskeletal-no joint pain, no muscle tenderness Skin-no bruising, no rashes, no pruritus Neuro-no isolated weakness, no paresthesia, no weakness Psych-no depression, no anxiety Physical Exam Physical Exam: General-alert and oriented x3, no fevers, no chills HEENT-head atraumatic and normocephalic, TMs intact bilaterally, pupils equal and reactive to light, extraocular muscles intact Neck-no lymphadenopathy or thyromegaly, trachea midline Chest-bilateral rhonchi. No wheezing. No dullness to percussion . Mildly tachypneic at rest Cardiac-regular rate and rhythm, normal S1 and S2, no murmurs Abdomen-normal bowel sounds, nontender, no hepatosplenomegaly Extremities-no cyanosis, clubbing, or edema Neuro-cranial nerves II through XII intact, motor and sensory function within normal limits, strength symmetrical , no focal deficits Psych-normal affect, normal mood Results & Data Results & Data ([facility]) Vital Signs (Past 12 Hours) Vital Signs Temp Pulse Pulse Resp BP Pulse Ox O2 Del Method 04/22/22 11:24 36.6 C 75 20 112/62 94 High Flow Nasal Cannula 04/22/22 11:19 36.7 C 04/22/22 07:25 96 H 04/22/22 07:25 High Flow Nasal Cannula 04/22/22 07:10 90 20 94 High Flow Nasal Cannula 04/22/22 07:26 38.8 C H 95 H 21 121/65 95 High Flow Nasal Cannula 04/22/22 04:01 38.1 C H 106 H 18 123/71 96 High Flow Nasal Cannula 04/22/22 03:25 97 H 20 97 High Flow Nasal Cannula O2 Flow Rate FiO2 04/22/22 11:24 40 04/22/22 11:19 04/22/22 07:25 04/22/22 07:25 40 80 04/22/22 07:10 40 55 04/22/22 07:26 40 04/22/22 04:01 40 55 04/22/22 03:25 40 55 Laboratory Results 04/22/22 04:51 04/22/22 04:51 PG Care Time/CCT Total # of Minutes Spent Total Time Spent with Patient: Total time spent is greater than 50% in coordination of care (as documented) at patient's floor/unit and/or counseling patient: Coding Level of Care Code 74547 Subseq Hosp Care Lvl 3 Diagnoses Acute respiratory failure with hypoxia J96.01 Aspiration pneumonia J69.0 Pleural effusion, left J90 HTN (hypertension) I10 Diabetes E11.9 Discoid lupus L93.0 GERD (gastroesophageal reflux disease) K21.9 Hypercholesteremia E78.00 CAD (coronary artery disease) I25.10
[2022-04-22 11:40] LABS: Appearance Urine Clear (Clear); Bacteria Urine Automated Negative (Negative); Bilirubin Urine Negative (Negative); Blood Urine Negative (Negative); Color Urine Yellow; Glucose Urine UA Negative (Negative); Ketones Urine Trace (Negative); Leukocyte Esterase Urine Negative (Negative); Nitrite Urine Negative (Negative); Protein Urine 1+ (Negative); Specific Gravity Urine 1.019 (1.000-1.030); Urobilinogen Urine Negative (Negative); pH Urine 6.5 (4.5-7.5)
[2022-04-22] MEDS: methylPREDNISolone 40 MG in SYRINGE 0 ML IV SCH ×2 (12:41→20:22)
[2022-04-22] MEDS ORDERED: PIPERACILLIN/TAZOBACTAM 4.5 GM in DEXTROSE 5% 100 ML IV SCH (13:30)
--- NOTE | 2022-04-22 13:41 | Electrocardiogram Report ---
Test Reason : Blood Pressure : / mmHG Vent. Rate : 096 BPM Atrial Rate : 096 BPM P-R Int : 150 ms QRS Dur : 088 ms QT Int : 344 ms P-R-T Axes : 067 -11 026 degrees QTc Int : 434 ms Sinus rhythm with occasional Premature ventricular complexes Inferior infarct , age undetermined Abnormal ECG When compared with ECG of 22-DEC-2015 13:54, Premature ventricular complexes are now Present Inferior infarct is now Present Confirmed by Marcellus Flower ([id number]) on 04/22/2022 1:41:21 PM Referred By: REFERRED SELF Confirmed By:Marcellus Flower
[2022-04-22] MEDS: PIPERACILLIN/TAZOBACTAM 4.5 GM in DEXTROSE 5% 100 ML IV SCH ×2 (13:42→22:55)
[2022-04-22] MEDS: ASPIRIN 81 MG ECTAB PO SCH (21:40)
[2022-04-22] MEDS: ENOXAPARIN INJ 40 MG/0.4 ML SYR SQ SCH (21:40)
[2022-04-23] MEDS: guaiFENesin SUGAR FREE 100 MG/5 ML UDC PO SCH ×4 (04:12→21:36)
[2022-04-23] MEDS: methylPREDNISolone 40 MG in SYRINGE 0 ML IV SCH ×2 (04:12→12:08)
[2022-04-23 05:53] LABS: Hematocrit (blood only) 36.5 % (34.1-44.9); Hemoglobin 11.7 g/dl (12.0-16.0); Mean Corpuscular Hemoglobin 28.2 pg (25.0-34.0); Mean Corpuscular Hgb Conc 32.1 g/dL (32.0-36.0); Mean Platelet Volume 10.8 fL (9.4-12.3); Platelet Count 209 K/uL (130-400); RDW Coefficient of Variation 14.2 % (11.5-14.5); RDW Standard Deviation 45.7 fL (36.4-46.3); Red Blood Count 4.15 M/uL (3.93-5.22); White Blood Count 9.75 K/ul (4.8-10.8)
[2022-04-23 06:14] LABS: BUN Creatinine Ratio 21.5 (10-20); Calcium 9.4 mg/dl (8.5-10.1); Creatinine Clr Calc Pharmacy 37.2 ml/min; Est GFR (African American) 54.4 ml/min; Potassium 3.5 mmol/L (3.5-5.1)
[2022-04-23] MEDS: PIPERACILLIN/TAZOBACTAM 4.5 GM in DEXTROSE 5% 100 ML IV SCH ×3 (06:21→21:37)
[2022-04-23] MEDS: PANTOprazole 40 MG TAB PO SCH (08:52)
[2022-04-23] MEDS: METOPROLOL SUCC 50MG EXT REL TAB PO SCH (08:52)
[2022-04-23] MEDS: FUROSEMIDE 40 MG TAB PO SCH (08:52)
[2022-04-23] MEDS: ATORVASTATIN 10 MG TAB PO SCH (08:53)
[2022-04-23] MEDS: INSULIN ASPART PER UNIT SC SCH ×4 (09:02→20:38)
[2022-04-23] MEDS: DOXYCYCLINE HYCLATE 100 MG in DEXTROSE 5% 100 ML IV SCH ×2 (09:37→19:36)
--- NOTE | 2022-04-23 16:50 | Hospitalist Progress Note ---
Date of Service April 23, 2022 Assessment & Plan (1) Acute respiratory failure with hypoxia: Plan: Likely secondary to multifocal pneumoniaviral plus likely bacterial given procalcitonin, could have aspirated; speech therapy input noted and appreciatedno change but stopped steroids for now; got today's dosereassess; repeat x-ray chest in a.m. (2) Multifocal pneumonia: Plan: As above, continue Zosyn plus Doxy for now though doubt need for antipseudomonal beta-lactam (did not change for now); urine Legionella antigen; as above, repeat x-ray chest in a.m; ; depending on course pulmonary consult. (3) HTN (hypertension): Plan: - Pressures acceptableno change (4) Diabetes: Plan: - Sugars reasonable, steroids being stopped (5) Discoid lupus: Plan: -Not on current medical therapy . Quiescent (6) GERD (gastroesophageal reflux disease): Plan: - PO protonix (7) Hypercholesteremia: Plan: Statin therapy (8) CAD (coronary artery disease): Plan: - Continue aspirin Plan Follow mild anemia Admission and Anticipated Discharge Date Admission Date: April 21, 2022 Subjective Follow-up of presentation with fever, respiratory symptomssomewhat better but still hypoxic Physical Exam Physical Exam: Constitutional and general: No acute distress, looks biologic age Head and face: No puffiness, atraumatic Eyes: No scleral icterus, extraocular movements normal Neck: Supple, no JVD Musculoskeletal: No acute joint swelling, no bony abnormalities Skin/dermatologic/integument: No rash, no purpura Hematologic and lymphatic: pallor +, no petechia Gastrointestinal/abdomen: Nondistended, soft, nonacute Neurologic: Cranial nerves intact, nonfocal Psychiatry: Awake, alert, pleasant, communicative Cardiovascular: Heart rhythm regular, no rub, no murmur, no gallop Respiratory: Chest movements equal, no use of accessory muscles, no adventitious sounds; overall decreased breath sounds Extremities: No edema, no cyanosis Results & Data Results & Data ([facility]) Vital Signs (Past 12 Hours) Vital Signs Temp Pulse Pulse Resp BP Pulse Ox O2 Del Method 04/23/22 15:15 63 04/23/22 08:45 66 04/23/22 08:45 Nasal Cannula 04/23/22 08:21 92 Nasal Cannula 04/23/22 08:16 36.9 C 88 16 134/68 87 L Nasal Cannula O2 Flow Rate 04/23/22 15:15 04/23/22 08:45 04/23/22 08:45 5 04/23/22 08:21 5 04/23/22 08:16 3 Laboratory Results Laboratory Results - last 24 hr 04/22/22 04/23/22 04/23/22 20:33 05:35 05:35 WBC 9.75 RBC 4.15 Hgb 11.7 L Hct 36.5 MCV 88.0 MCH 28.2 MCHC 32.1 RDW Std Deviation 45.7 RDW Coeff of Isa 14.2 Plt Count 209 MPV 10.8 Sodium 137 Potassium 3.5 Chloride 101 Carbon Dioxide 29 Anion Gap 7 BUN 23 Creatinine 1.07 Est Cr Clr Drug Dosing 37.2 Est GFR ( Amer) 54.4 Est GFR (Non-Af Amer) 47.0 BUN/Creatinine Ratio 21.5 H Glucose 167 H POC Glucose 167 H Calcium 9.4 04/23/22 04/23/22 04/23/22 07:28 11:23 16:17 WBC RBC Hgb Hct MCV MCH MCHC RDW Std Deviation RDW Coeff of Isa Plt Count MPV Sodium Potassium Chloride Carbon Dioxide Anion Gap BUN Creatinine Est Cr Clr Drug Dosing Est GFR ( Amer) Est GFR (Non-Af Amer) BUN/Creatinine Ratio Glucose POC Glucose 164 H 230 H 146 H Calcium PG Care Time/CCT Total # of Minutes Spent Total Time Spent with Patient: Total time spent is greater than 50% in coordination of care (as documented) at patient's floor/unit and/or counseling patient: Coding Level of Care Code 24903 Subseq Hosp Care Lvl 2 Diagnoses Acute respiratory failure with hypoxia J96.01 Multifocal pneumonia J18.9 HTN (hypertension) I10 Diabetes E11.9 Discoid lupus L93.0 GERD (gastroesophageal reflux disease) K21.9 Hypercholesteremia E78.00 CAD (coronary artery disease) I25.10
[2022-04-23] MEDS: ENOXAPARIN INJ 40 MG/0.4 ML SYR SQ SCH (20:36)
[2022-04-23] MEDS: ASPIRIN 81 MG ECTAB PO SCH (20:37)
[2022-04-24] MEDS: guaiFENesin SUGAR FREE 100 MG/5 ML UDC PO SCH ×4 (03:31→21:50)
[2022-04-24] MEDS: PIPERACILLIN/TAZOBACTAM 4.5 GM in DEXTROSE 5% 100 ML IV SCH ×3 (05:33→21:51)
[2022-04-24 07:40] LABS: Basophils # (auto) 0.02 K/uL (0-0.2); Basophils % (auto) 0.2 %; Hematocrit (blood only) 36.2 % (34.1-44.9); Hemoglobin 11.8 g/dl (12.0-16.0); Immature Granulocytes # (auto) 0.33 K/uL (0.00-0.02); Immature Granulocytes % (auto) 2.7 %; Lymphocytes % (auto) 13.9 %; Mean Corpuscular Hgb Conc 32.6 g/dL (32.0-36.0); Mean Corpuscular Volume 85.8 fL (80.0-100.0); Mean Platelet Volume 10.5 fL (9.4-12.3); Monocytes # (auto) 0.47 K/uL (0.24-0.82); Monocytes % (auto) 3.8 %; Neutrophils # (auto) 9.69 K/uL (1.4-6.5); Neutrophils % (auto) 79.4 %; Platelet Count 240 K/uL (130-400); RDW Coefficient of Variation 14.3 % (11.5-14.5); Red Blood Count 4.22 M/uL (3.93-5.22); White Blood Count 12.21 K/ul (4.8-10.8)
[2022-04-24] MEDS: INSULIN ASPART PER UNIT SC SCH ×4 (08:15→20:36)
[2022-04-24 08:22] LABS: Albumin Globulin Ratio 0.7 (0.9-2); Albumin Level 2.9 gm/dl (3.4-5.0); Bilirubin,Total 0.4 mg/dl (0.2-1.0); Calcium 9.5 mg/dl (8.5-10.1); Creatinine Clr Calc Pharmacy 34.7 ml/min; Est GFR (African American) 48.9 ml/min; Est GFR (Non-African American) 42.2 ml/min; Phosphorus 3.7 mg/dl (2.5-4.9); Potassium 3.3 mmol/L (3.5-5.1); Total Protein 6.9 gm/dl (6.0-8.3)
[2022-04-24] MEDS: DOXYCYCLINE HYCLATE 100 MG in DEXTROSE 5% 100 ML IV SCH (08:41)
[2022-04-24] MEDS: METOPROLOL SUCC 50MG EXT REL TAB PO SCH (08:43)
[2022-04-24] MEDS: FUROSEMIDE 40 MG TAB PO SCH (08:43)
[2022-04-24] MEDS: PANTOprazole 40 MG TAB PO SCH (08:43)
[2022-04-24] MEDS: ATORVASTATIN 10 MG TAB PO SCH (08:43)
[2022-04-24] MEDS ORDERED: POTASSIUM CHLORIDE CRTAB 20 MEQ TABCR PO STA (10:23)
--- NOTE | 2022-04-24 11:27 | XRay Report ---
XR chest 2V PA/lateral HISTORY: Cough. Hypoxic respiratory failure COMPARISON: Chest 04/22/2022. FINDINGS: No pneumothorax. The cardiac silhouette remains mildly enlarged. Pulmonary vascular congest ion and bibasilar densities have improved. Small focal airspace opacity within the left upper lobe pe rsists. Small bilateral pleural effusions have also improved. IMPRESSION: 1. Interval improvement in the pulmonary vascular congestion, bibasilar densities, and small bilatera l pleural effusions. 2. No change in the left upper lobe focal airspace opacity. One month chest x-ray follow-up recommend ed to ensure resolution. ACT 112: Positive. There are findings on this exam that require communication between the performing entity and the patient following Patient Test Result Information Act ([place] Act 112) guidelines. Electronically signed by: Lew Sierra M.D. 04/24/2022 11:26 AM
--- NOTE | 2022-04-24 11:59 | Ultrasound Report ---
LEFT UPPER EXTREMITY VENOUS DOPPLER ULTRASOUND CLINICAL HISTORY: Edema COMPARISON STUDY: No previous studies for comparison.. TECHNIQUE: Sonography of the deep venous system of the left upper extremity was performed. FINDINGS: The left internal jugular, subclavian, axillary, brachial, radial and ulnar veins are paten t. The left basilic and cephalic veins are patent. No venous thrombus is identified within the left u pper extremity. Subcutaneous edema of the left forearm was noted. No well-defined fluid collection i s identified IMPRESSION: 1. No deep venous thrombus within the left upper extremity. 2. Edema within the deep subcutaneous tissues of the lateral left forearm, a nonspecific finding. ACT 112: Negative or not required by law. Electronically signed by: Naveed Paulson M.D. 04/24/2022 11:58 AM
[2022-04-24] MEDS ORDERED: ALBUTEROL 0.083% NEBU SOLN 3 ML VIAL NEB SCH (12:00)
[2022-04-24] MEDS: ALBUT/IPRATROP 3MG/0.5MG NEB 3 ML VIAL NEB SCH ×2 (12:52→19:16)
--- NOTE | 2022-04-24 15:18 | Hospitalist Progress Note ---
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 (6) GERD (gastroesophageal reflux disease): Plan: - PO protonix (7) Hypercholesteremia: Plan: Statin therapy (8) CAD (coronary artery disease): Plan: - Continue aspirin Plan Noted mild hypokalemiareplace; Follow mild anemia Admission and Anticipated Discharge Date Admission Date: April 21, 2022 Subjective Follow-up of presentation with fever, respiratory symptomsno new complaints as such Physical Exam Physical Exam: Constitutional and general: No acute distress, looks biologic age Head and face: No puffiness, atraumatic Eyes: No scleral icterus, extraocular movements normal Neck: Supple, no JVD Musculoskeletal: No acute joint swelling, no bony abnormalities Skin/dermatologic/integument: No rash, no purpura Hematologic and lymphatic: pallor +, no petechia Gastrointestinal/abdomen: Nondistended, soft, nonacute Neurologic: Cranial nerves intact, nonfocal Psychiatry: Awake, alert, pleasant, communicative Cardiovascular: Heart rhythm regular, no rub, no murmur, no gallop Respiratory: Chest movements equal, no use of accessory muscles, no adventitious sounds; overall decreased breath sounds, more so on the right side; scattered wheezing, more so on the left side Extremities: No edema, no cyanosis Results & Data Results & Data ([facility]) Vital Signs (Past 12 Hours) Vital Signs Temp Pulse Pulse Resp BP Pulse Ox O2 Del Method 04/24/22 12:52 69 18 96 Nasal Cannula 04/24/22 12:00 36.5 C 62 16 126/64 98 Nasal Cannula 04/24/22 11:33 Nasal Cannula 04/24/22 08:00 36.9 C 75 18 138/72 92 Nasal Cannula 04/24/22 08:01 54 L 04/24/22 03:47 37 C 78 18 144/61 H 100 Nasal Cannula O2 Flow Rate 04/24/22 12:52 5 04/24/22 12:00 04/24/22 11:33 5 04/24/22 08:00 5 04/24/22 08:01 04/24/22 03:47 5 PG Care Time/CCT Total # of Minutes Spent Total Time Spent with Patient: Total time spent is greater than 50% in coordination of care (as documented) at patient's floor/unit and/or counseling patient: Coding Level of Care Code 37788 Subseq Hosp Care Lvl 2 Diagnoses Acute respiratory failure with hypoxia J96.01 Multifocal pneumonia J18.9 HTN (hypertension) I10 Diabetes E11.9 Discoid lupus L93.0 GERD (gastroesophageal reflux disease) K21.9 Hypercholesteremia E78.00 CAD (coronary artery disease) I25.10
[2022-04-24] MEDS: SODIUM CHLOR 7% 4 ML NEB NEB SCH (19:16)
[2022-04-24] MEDS: ASPIRIN 81 MG ECTAB PO SCH (20:35)
[2022-04-24] MEDS: DOXYCYCLINE HYCLATE 100 MG CAP PO SCH (20:36)
[2022-04-24] MEDS: ENOXAPARIN INJ 40 MG/0.4 ML SYR SQ SCH (20:36)
[2022-04-25] MEDS: ALBUT/IPRATROP 3MG/0.5MG NEB 3 ML VIAL NEB SCH ×4 (01:04→19:16)
[2022-04-25] MEDS: guaiFENesin SUGAR FREE 100 MG/5 ML UDC PO SCH ×4 (04:42→21:13)
[2022-04-25] MEDS: PIPERACILLIN/TAZOBACTAM 4.5 GM in DEXTROSE 5% 100 ML IV SCH ×3 (05:41→21:12)
[2022-04-25] MEDS: SODIUM CHLOR 7% 4 ML NEB NEB SCH ×2 (07:06→19:17)
[2022-04-25 07:43] LABS: Basophils # (auto) 0.02 K/uL (0-0.2); Basophils % (auto) 0.2 %; Eosinophils # (auto) 0.02 K/uL (0-0.50); Eosinophils % (auto) 0.2 %; Hematocrit (blood only) 33.7 % (34.1-44.9); Hemoglobin 11.1 g/dl (12.0-16.0); Immature Granulocytes # (auto) 0.33 K/uL (0.00-0.02); Immature Granulocytes % (auto) 3.3 %; Lymphocytes # (auto) 1.78 K/uL (1.2-3.4); Lymphocytes % (auto) 17.7 %; Mean Corpuscular Hemoglobin 28.5 pg (25.0-34.0); Mean Corpuscular Hgb Conc 32.9 g/dL (32.0-36.0); Mean Corpuscular Volume 86.4 fL (80.0-100.0); Mean Platelet Volume 11.3 fL (9.4-12.3); Monocytes # (auto) 0.51 K/uL (0.24-0.82); Monocytes % (auto) 5.1 %; Neutrophils # (auto) 7.38 K/uL (1.4-6.5); Neutrophils % (auto) 73.5 %; Platelet Count 204 K/uL (130-400); RDW Coefficient of Variation 14.3 % (11.5-14.5); RDW Standard Deviation 45.2 fL (36.4-46.3); White Blood Count 10.04 K/ul (4.8-10.8)
[2022-04-25] MEDS: METOPROLOL SUCC 50MG EXT REL TAB PO SCH (08:12)
[2022-04-25] MEDS: ATORVASTATIN 10 MG TAB PO SCH (08:13)
[2022-04-25] MEDS: DOXYCYCLINE HYCLATE 100 MG CAP PO SCH ×2 (08:13→21:13)
[2022-04-25] MEDS: FUROSEMIDE 40 MG TAB PO SCH (08:13)
[2022-04-25] MEDS: PANTOprazole 40 MG TAB PO SCH (08:13)
[2022-04-25] MEDS: INSULIN ASPART PER UNIT SC SCH ×4 (08:18→21:14)
[2022-04-25 08:19] LABS: Albumin Globulin Ratio 0.7 (0.9-2); Albumin Level 2.8 gm/dl (3.4-5.0); Bilirubin,Total 0.4 mg/dl (0.2-1.0); Calcium 9.1 mg/dl (8.5-10.1); Creatinine Clr Calc Pharmacy 35.5 ml/min; Est GFR (African American) 50.4 ml/min; Est GFR (Non-African American) 43.5 ml/min; Globulin 3.8 gm/dl (2.5-4.0); Magnesium 1.9 mg/dl (1.7-2.4); Phosphorus 3.7 mg/dl (2.5-4.9); Potassium 3.6 mmol/L (3.5-5.1); Total Protein 6.6 gm/dl (6.0-8.3)
--- NOTE | 2022-04-25 14:16 | Hospitalist Progress Note ---
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 (6) GERD (gastroesophageal reflux disease): Plan: - PO protonix (7) Hypercholesteremia: Plan: Statin therapy (8) CAD (coronary artery disease): Plan: - Continue aspirin Plan Follow mild anemia Mobilize Admission and Anticipated Discharge Date Admission Date: April 21, 2022 Subjective Follow-up of presentation with fever, respiratory symptomsfeels better Physical Exam Physical Exam: Constitutional and general: No acute distress, looks biologic age Head and face: No puffiness, atraumatic Eyes: No scleral icterus, extraocular movements normal Neck: Supple, no JVD Musculoskeletal: No acute joint swelling, no bony abnormalities Skin/dermatologic/integument: No rash, no purpura Hematologic and lymphatic: pallor +, no petechia Gastrointestinal/abdomen: Nondistended, soft, nonacute Neurologic: Cranial nerves intact, nonfocal Psychiatry: Awake, alert, pleasant, communicative Cardiovascular: Heart rhythm regular, no rub, no murmur, no gallop Respiratory: Chest movements equal, no use of accessory muscles, no adventitious sounds; overall decreased breath sounds, more so on the right side; scattered wheezing, more so on the left side Extremities: No edema, no cyanosis Results & Data Results & Data ([facility]) Vital Signs (Past 12 Hours) Vital Signs Temp Pulse Pulse Resp BP Pulse Ox O2 Del Method 04/25/22 12:21 78 18 92 Nasal Cannula 04/25/22 12:10 Nasal Cannula 04/25/22 11:56 36.9 C 81 18 139/64 92 Nasal Cannula 04/25/22 11:21 63 04/25/22 07:56 36.6 C 74 20 148/72 H 96 Nasal Cannula 04/25/22 07:06 68 20 96 Nasal Cannula 04/25/22 03:00 36.9 C 74 16 144/68 H 91 Nasal Cannula O2 Flow Rate 04/25/22 12:21 3 04/25/22 12:10 3 04/25/22 11:56 2 04/25/22 11:21 04/25/22 07:56 5 04/25/22 07:06 5 04/25/22 03:00 Laboratory Results Laboratory Results - last 24 hr 04/24/22 04/24/22 04/25/22 16:16 20:27 06:49 WBC 10.04 RBC 3.90 L Hgb 11.1 L Hct 33.7 L MCV 86.4 MCH 28.5 MCHC 32.9 RDW Std Deviation 45.2 RDW Coeff of Isa 14.3 Plt Count 204 MPV 11.3 Immature Gran % (Auto) 3.3 Neut % (Auto) 73.5 Lymph % (Auto) 17.7 [place] % (Auto) 5.1 Eos % (Auto) 0.2 Baso % (Auto) 0.2 Neut # (Auto) 7.38 H Lymph # (Auto) 1.78 [place] # (Auto) 0.51 Eos # (Auto) 0.02 Baso # (Auto) 0.02 Immature Gran # (Auto) 0.33 H Sodium Potassium Chloride Carbon Dioxide Anion Gap BUN Creatinine Est Cr Clr Drug Dosing Est GFR ( Amer) Est GFR (Non-Af Amer) POC Glucose 125 H 162 H Fasting Glucose Calcium Phosphorus Magnesium Total Bilirubin AST ALT Alkaline Phosphatase Total Protein Albumin Globulin Albumin/Globulin Ratio 04/25/22 04/25/22 04/25/22 06:49 07:25 11:24 WBC RBC Hgb Hct MCV MCH MCHC RDW Std Deviation RDW Coeff of Isa Plt Count MPV Immature Gran % (Auto) Neut % (Auto) Lymph % (Auto) [place] % (Auto) Eos % (Auto) Baso % (Auto) Neut # (Auto) Lymph # (Auto) [place] # (Auto) Eos # (Auto) Baso # (Auto) Immature Gran # (Auto) Sodium 142 Potassium 3.6 Chloride 106 Carbon Dioxide 30 Anion Gap 6 BUN 24 H Creatinine 1.14 Est Cr Clr Drug Dosing 35.5 Est GFR ( Amer) 50.4 Est GFR (Non-Af Amer) 43.5 POC Glucose 111 H 139 H Fasting Glucose 111 H Calcium 9.1 Phosphorus 3.7 Magnesium 1.9 Total Bilirubin 0.4 AST 44 H ALT 44 Alkaline Phosphatase 41 Total Protein 6.6 Albumin 2.8 L Globulin 3.8 Albumin/Globulin Ratio 0.7 L PG Care Time/CCT Total # of Minutes Spent Total Time Spent with Patient: Total time spent is greater than 50% in coordination of care (as documented) at patient's floor/unit and/or counseling patient: Coding Level of Care Code 80184 Subseq Hosp Care Lvl 2 Diagnoses Acute respiratory failure with hypoxia J96.01 Multifocal pneumonia J18.9 HTN (hypertension) I10 Diabetes E11.9 Discoid lupus L93.0 GERD (gastroesophageal reflux disease) K21.9 Hypercholesteremia E78.00 CAD (coronary artery disease) I25.10
[2022-04-25] MEDS: ENOXAPARIN INJ 40 MG/0.4 ML SYR SQ SCH (21:13)
[2022-04-25] MEDS: ASPIRIN 81 MG ECTAB PO SCH (21:13)
[2022-04-26] MEDS: ALBUT/IPRATROP 3MG/0.5MG NEB 3 ML VIAL NEB SCH ×4 (00:52→19:35)
[2022-04-26] MEDS: guaiFENesin SUGAR FREE 100 MG/5 ML UDC PO SCH ×4 (05:01→21:56)
[2022-04-26] MEDS: PIPERACILLIN/TAZOBACTAM 4.5 GM in DEXTROSE 5% 100 ML IV SCH ×3 (05:01→22:06)
[2022-04-26 06:29] LABS: Basophils # (auto) 0.01 K/uL (0-0.2); Basophils % (auto) 0.1 %; Eosinophils # (auto) 0.08 K/uL (0-0.50); Eosinophils % (auto) 0.7 %; Hematocrit (blood only) 34.6 % (34.1-44.9); Immature Granulocytes # (auto) 0.24 K/uL (0.00-0.02); Immature Granulocytes % (auto) 2.2 %; Lymphocytes % (auto) 15.3 %; Mean Corpuscular Hemoglobin 27.4 pg (25.0-34.0); Mean Corpuscular Hgb Conc 31.8 g/dL (32.0-36.0); Mean Corpuscular Volume 86.1 fL (80.0-100.0); Mean Platelet Volume 9.9 fL (9.4-12.3); Monocytes # (auto) 0.37 K/uL (0.24-0.82); Monocytes % (auto) 3.3 %; Neutrophils # (auto) 8.71 K/uL (1.4-6.5); Neutrophils % (auto) 78.4 %; Platelet Count 234 K/uL (130-400); RDW Coefficient of Variation 14.1 % (11.5-14.5); RDW Standard Deviation 44.7 fL (36.4-46.3); Red Blood Count 4.02 M/uL (3.93-5.22); White Blood Count 11.11 K/ul (4.8-10.8)
[2022-04-26 06:58] LABS: Albumin Globulin Ratio 0.7 (0.9-2); Albumin Level 2.8 gm/dl (3.4-5.0); Bilirubin,Total 0.5 mg/dl (0.2-1.0); Calcium 8.9 mg/dl (8.5-10.1); Creatinine Clr Calc Pharmacy 41.3 ml/min; Est GFR (African American) 61.3 ml/min; Est GFR (Non-African American) 52.9 ml/min; Globulin 3.9 gm/dl (2.5-4.0); Magnesium 1.9 mg/dl (1.7-2.4); Phosphorus 3.2 mg/dl (2.5-4.9); Potassium 3.1 mmol/L (3.5-5.1); Total Protein 6.7 gm/dl (6.0-8.3)
[2022-04-26] MEDS: SODIUM CHLOR 7% 4 ML NEB NEB SCH ×2 (07:00→19:35)
[2022-04-26] MEDS: INSULIN ASPART PER UNIT SC SCH ×4 (07:44→22:00)
[2022-04-26] MEDS: METOPROLOL SUCC 50MG EXT REL TAB PO SCH (08:39)
[2022-04-26] MEDS: FUROSEMIDE 40 MG TAB PO SCH (08:39)
[2022-04-26] MEDS: ATORVASTATIN 10 MG TAB PO SCH (08:39)
[2022-04-26] MEDS: DOXYCYCLINE HYCLATE 100 MG CAP PO SCH ×2 (08:39→21:56)
[2022-04-26] MEDS ORDERED: POTASSIUM CHLORIDE CRTAB 20 MEQ TABCR PO STA (11:39)
--- NOTE | 2022-04-26 15:32 | Hospitalist Progress Note ---
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 (6) GERD (gastroesophageal reflux disease): Plan: - PO protonix (7) Hypercholesteremia: Plan: Statin therapy (8) CAD (coronary artery disease): Plan: - Continue aspirin Plan Noted mild leukocytosis and minimally elevated SGOTclinically doing wellobserve Follow mild anemia Hypokalemiareplace Mobilize Admission and Anticipated Discharge Date Admission Date: April 21, 2022 Subjective Follow-up of presentation with fever, respiratory symptomsfeels further better Physical Exam Physical Exam: Constitutional and general: No acute distress, looks biologic age Head and face: No puffiness, atraumatic Eyes: No scleral icterus, extraocular movements normal Neck: Supple, no JVD Musculoskeletal: No acute joint swelling, no bony abnormalities Skin/dermatologic/integument: No rash, no purpura Hematologic and lymphatic: pallor +, no petechia Gastrointestinal/abdomen: Nondistended, soft, nonacuteno right upper quadrant signs Neurologic: Cranial nerves intact, nonfocal Psychiatry: Awake, alert, pleasant, communicative Cardiovascular: Heart rhythm regular, no rub, no murmur, no gallop Respiratory: Chest movements equal, no use of accessory muscles, no adventitious sounds; overall decreased breath sounds, more so on the right side; almost clear otherwise Extremities: No edema, no cyanosis Results & Data Results & Data ([facility]) Vital Signs (Past 12 Hours) Vital Signs Temp Pulse Pulse Resp BP Pulse Ox O2 Del Method 04/26/22 14:58 37.0 C 81 18 149/65 H 94 Nasal Cannula 04/26/22 13:33 80 18 90 Nasal Cannula 04/26/22 11:01 36.6 C 85 19 124/75 95 Nasal Cannula 04/26/22 07:00 68 04/26/22 07:13 36.3 C L 80 20 156/66 H 96 04/26/22 07:00 79 18 94 Nasal Cannula O2 Flow Rate 04/26/22 14:58 1 04/26/22 13:33 1 04/26/22 11:01 2 04/26/22 07:00 04/26/22 07:13 04/26/22 07:00 3 Laboratory Results Laboratory Results - last 24 hr 04/25/22 04/25/22 04/26/22 16:22 20:10 06:19 WBC 11.11 H RBC 4.02 Hgb 11.0 L Hct 34.6 MCV 86.1 MCH 27.4 MCHC 31.8 L RDW Std Deviation 44.7 RDW Coeff of Isa 14.1 Plt Count 234 MPV 9.9 Immature Gran % (Auto) 2.2 Neut % (Auto) 78.4 Lymph % (Auto) 15.3 [place] % (Auto) 3.3 Eos % (Auto) 0.7 Baso % (Auto) 0.1 Neut # (Auto) 8.71 H Lymph # (Auto) 1.70 [place] # (Auto) 0.37 Eos # (Auto) 0.08 Baso # (Auto) 0.01 Immature Gran # (Auto) 0.24 H Sodium Potassium Chloride Carbon Dioxide Anion Gap BUN Creatinine Est Cr Clr Drug Dosing Est GFR ( Amer) Est GFR (Non-Af Amer) POC Glucose 120 H 123 H Fasting Glucose Calcium Phosphorus Magnesium Total Bilirubin AST ALT Alkaline Phosphatase Total Protein Albumin Globulin Albumin/Globulin Ratio 04/26/22 04/26/22 04/26/22 06:19 07:11 10:58 WBC RBC Hgb Hct MCV MCH MCHC RDW Std Deviation RDW Coeff of Isa Plt Count MPV Immature Gran % (Auto) Neut % (Auto) Lymph % (Auto) [place] % (Auto) Eos % (Auto) Baso % (Auto) Neut # (Auto) Lymph # (Auto) [place] # (Auto) Eos # (Auto) Baso # (Auto) Immature Gran # (Auto) Sodium 140 Potassium 3.1 L Chloride 104 Carbon Dioxide 30 Anion Gap 6 BUN 16 Creatinine 0.97 Est Cr Clr Drug Dosing 41.3 Est GFR ( Amer) 61.3 Est GFR (Non-Af Amer) 52.9 POC Glucose 122 H 156 H Fasting Glucose 122 H Calcium 8.9 Phosphorus 3.2 Magnesium 1.9 Total Bilirubin 0.5 AST 41 H ALT 48 Alkaline Phosphatase 39 Total Protein 6.7 Albumin 2.8 L Globulin 3.9 Albumin/Globulin Ratio 0.7 L PG Care Time/CCT Total # of Minutes Spent Total Time Spent with Patient: Total time spent is greater than 50% in coordination of care (as documented) at patient's floor/unit and/or counseling patient: Coding Level of Care Code 76409 Subseq Hosp Care Lvl 2 Diagnoses Acute respiratory failure with hypoxia J96.01 Multifocal pneumonia J18.9 HTN (hypertension) I10 Diabetes E11.9 Discoid lupus L93.0 GERD (gastroesophageal reflux disease) K21.9 Hypercholesteremia E78.00 CAD (coronary artery disease) I25.10
[2022-04-26] MEDS: LOSARTAN POTASSIUM 50 MG TAB PO SCH (17:00)
[2022-04-26] MEDS: ASPIRIN 81 MG ECTAB PO SCH (21:56)
[2022-04-26] MEDS: ENOXAPARIN INJ 40 MG/0.4 ML SYR SQ SCH (21:56)
[2022-04-27] MEDS: ALBUT/IPRATROP 3MG/0.5MG NEB 3 ML VIAL NEB SCH ×4 (00:31→19:32)
[2022-04-27] MEDS: guaiFENesin SUGAR FREE 100 MG/5 ML UDC PO SCH ×4 (06:34→20:48)
[2022-04-27] MEDS: PIPERACILLIN/TAZOBACTAM 4.5 GM in DEXTROSE 5% 100 ML IV SCH ×3 (06:35→23:07)
[2022-04-27 06:59] LABS: Basophils # (auto) 0.04 K/uL (0-0.2); Basophils % (auto) 0.3 %; Eosinophils # (auto) 0.21 K/uL (0-0.50); Eosinophils % (auto) 1.7 %; Hemoglobin 12.1 g/dl (12.0-16.0); Immature Granulocytes # (auto) 0.23 K/uL (0.00-0.02); Immature Granulocytes % (auto) 1.8 %; Lymphocytes # (auto) 2.17 K/uL (1.2-3.4); Lymphocytes % (auto) 17.2 %; Mean Corpuscular Hemoglobin 28.1 pg (25.0-34.0); Mean Corpuscular Hgb Conc 32.7 g/dL (32.0-36.0); Mean Corpuscular Volume 85.8 fL (80.0-100.0); Mean Platelet Volume 11.3 fL (9.4-12.3); Monocytes # (auto) 0.46 K/uL (0.24-0.82); Monocytes % (auto) 3.7 %; Neutrophils # (auto) 9.47 K/uL (1.4-6.5); Neutrophils % (auto) 75.3 %; Platelet Count 261 K/uL (130-400); RDW Coefficient of Variation 14.4 % (11.5-14.5); RDW Standard Deviation 44.3 fL (36.4-46.3); Red Blood Count 4.31 M/uL (3.93-5.22); White Blood Count 12.58 K/ul (4.8-10.8)
[2022-04-27] MEDS: SODIUM CHLOR 7% 4 ML NEB NEB SCH ×2 (07:04→19:32)
[2022-04-27 07:29] LABS: Albumin Globulin Ratio 0.7 (0.9-2); Albumin Level 3.2 gm/dl (3.4-5.0); Bilirubin,Total 0.6 mg/dl (0.2-1.0); Calcium 9.2 mg/dl (8.5-10.1); Creatinine Clr Calc Pharmacy 43.2 ml/min; Est GFR (African American) 66.2 ml/min; Est GFR (Non-African American) 57.1 ml/min; Globulin 4.4 gm/dl (2.5-4.0); Phosphorus 2.4 mg/dl (2.5-4.9); Potassium 3.1 mmol/L (3.5-5.1); Total Protein 7.6 gm/dl (6.0-8.3)
[2022-04-27] MEDS: INSULIN ASPART PER UNIT SC SCH ×4 (07:41→21:34)
[2022-04-27] MEDS: METOPROLOL SUCC 50MG EXT REL TAB PO SCH (08:22)
[2022-04-27] MEDS: DOXYCYCLINE HYCLATE 100 MG CAP PO SCH ×2 (08:22→20:48)
[2022-04-27] MEDS: ATORVASTATIN 10 MG TAB PO SCH (08:22)
[2022-04-27] MEDS: FUROSEMIDE 40 MG TAB PO SCH (08:22)
[2022-04-27] MEDS: LOSARTAN POTASSIUM 50 MG TAB PO SCH (10:35)
[2022-04-27] MEDS ORDERED: POTASSIUM CHLORIDE CRTAB 20 MEQ TABCR PO STA (16:30)
--- NOTE | 2022-04-27 16:35 | Hospitalist Progress Note ---
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 (6) GERD (gastroesophageal reflux disease): Plan: - PO protonix (7) Hypercholesteremia: Plan: Statin therapy (8) CAD (coronary artery disease): Plan: - Continue aspirin Plan Leukocytosis again noted with tad higher count!clinical improvement- observe -replace potassium and phosphate Admission and Anticipated Discharge Date Admission Date: April 21, 2022 Subjective Follow-up of presentation with fever, respiratory symptomsdoing very well; almost off oxygen Physical Exam Physical Exam: Constitutional and general: No acute distress, looks biologic age Head and face: No puffiness, atraumatic Eyes: No scleral icterus, extraocular movements normal Neck: Supple, no JVD Musculoskeletal: No acute joint swelling, no bony abnormalities Skin/dermatologic/integument: No rash, no purpura Hematologic and lymphatic: pallor +, no petechia Gastrointestinal/abdomen: Nondistended, soft, nonacuteno right upper quadrant signs Neurologic: Cranial nerves intact, nonfocal Psychiatry: Awake, alert, pleasant, communicative Cardiovascular: Heart rhythm regular, no rub, no murmur, no gallop Respiratory: Chest movements equal, no use of accessory muscles, no adventitious sounds; overall decreased breath sounds, more so on the right side; almost clear otherwise Extremities: No edema, no cyanosis Results & Data Results & Data ([facility]) Vital Signs (Past 12 Hours) Vital Signs Temp Pulse Pulse Pulse Resp BP Pulse Ox 04/27/22 15:00 04/27/22 15:03 36.7 C 79 18 130/68 94 04/27/22 13:31 80 18 92 04/27/22 11:08 36.7 C 74 18 122/65 93 04/27/22 07:00 86 04/27/22 07:14 36.7 C 74 20 137/69 99 04/27/22 07:05 79 22 93 Pulse Ox O2 Del Method O2 Del Method O2 Flow Rate 04/27/22 15:00 90 Room Air 04/27/22 15:03 Nasal Cannula 1 04/27/22 13:31 Room Air 04/27/22 11:08 Room Air 04/27/22 07:00 04/27/22 07:14 04/27/22 07:05 Nasal Cannula 1 Laboratory Results Laboratory Results - last 24 hr 04/24/22 04/26/22 04/26/22 12:50 16:14 20:36 WBC RBC Hgb Hct MCV MCH MCHC RDW Std Deviation RDW Coeff of Isa Plt Count MPV Immature Gran % (Auto) Neut % (Auto) Lymph % (Auto) [place] % (Auto) Eos % (Auto) Baso % (Auto) Neut # (Auto) Lymph # (Auto) [place] # (Auto) Eos # (Auto) Baso # (Auto) Immature Gran # (Auto) Sodium Potassium Chloride Carbon Dioxide Anion Gap BUN Creatinine Est Cr Clr Drug Dosing Est GFR ( Amer) Est GFR (Non-Af Amer) POC Glucose 114 H 134 H Fasting Glucose Calcium Phosphorus Magnesium Total Bilirubin AST ALT Alkaline Phosphatase Total Protein Albumin Globulin Albumin/Globulin Ratio Urine Legionella Ag SEE NOTE 04/27/22 04/27/22 04/27/22 06:27 06:27 07:11 WBC 12.58 H RBC 4.31 Hgb 12.1 Hct 37.0 MCV 85.8 MCH 28.1 MCHC 32.7 RDW Std Deviation 44.3 RDW Coeff of Isa 14.4 Plt Count 261 MPV 11.3 Immature Gran % (Auto) 1.8 Neut % (Auto) 75.3 Lymph % (Auto) 17.2 [place] % (Auto) 3.7 Eos % (Auto) 1.7 Baso % (Auto) 0.3 Neut # (Auto) 9.47 H Lymph # (Auto) 2.17 [place] # (Auto) 0.46 Eos # (Auto) 0.21 Baso # (Auto) 0.04 Immature Gran # (Auto) 0.23 H Sodium 138 Potassium 3.1 L Chloride 103 Carbon Dioxide 28 Anion Gap 7 BUN 12 Creatinine 0.91 Est Cr Clr Drug Dosing 43.2 Est GFR ( Amer) 66.2 Est GFR (Non-Af Amer) 57.1 POC Glucose 104 H Fasting Glucose 121 H Calcium 9.2 Phosphorus 2.4 L Magnesium 2.0 Total Bilirubin 0.6 AST 38 ALT 48 Alkaline Phosphatase 42 Total Protein 7.6 Albumin 3.2 L Globulin 4.4 H Albumin/Globulin Ratio 0.7 L Urine Legionella Ag 04/27/22 04/27/22 11:05 16:06 WBC RBC Hgb Hct MCV MCH MCHC RDW Std Deviation RDW Coeff of Isa Plt Count MPV Immature Gran % (Auto) Neut % (Auto) Lymph % (Auto) [place] % (Auto) Eos % (Auto) Baso % (Auto) Neut # (Auto) Lymph # (Auto) [place] # (Auto) Eos # (Auto) Baso # (Auto) Immature Gran # (Auto) Sodium Potassium Chloride Carbon Dioxide Anion Gap BUN Creatinine Est Cr Clr Drug Dosing Est GFR ( Amer) Est GFR (Non-Af Amer) POC Glucose 128 H 120 H Fasting Glucose Calcium Phosphorus Magnesium Total Bilirubin AST ALT Alkaline Phosphatase Total Protein Albumin Globulin Albumin/Globulin Ratio Urine Legionella Ag PG Care Time/CCT Total # of Minutes Spent Total Time Spent with Patient: Total time spent is greater than 50% in coordination of care (as documented) at patient's floor/unit and/or counseling patient: Coding Level of Care Code 12960 Subseq Hosp Care Lvl 2 Diagnoses Acute respiratory failure with hypoxia J96.01 Multifocal pneumonia J18.9 HTN (hypertension) I10 Diabetes E11.9 Discoid lupus L93.0 GERD (gastroesophageal reflux disease) K21.9 Hypercholesteremia E78.00 CAD (coronary artery disease) I25.10
[2022-04-27] MEDS ORDERED: POT PHOSPHATE MONOBASIC W/ SOD TAB PO ONE (16:45)
[2022-04-27] MEDS: ENOXAPARIN INJ 40 MG/0.4 ML SYR SQ SCH (20:48)
[2022-04-27] MEDS: ASPIRIN 81 MG ECTAB PO SCH (20:48)
[2022-04-28] MEDS: ALBUT/IPRATROP 3MG/0.5MG NEB 3 ML VIAL NEB SCH ×4 (00:16→19:08)
[2022-04-28] MEDS: guaiFENesin SUGAR FREE 100 MG/5 ML UDC PO SCH ×4 (03:51→20:28)
[2022-04-28] MEDS: PIPERACILLIN/TAZOBACTAM 4.5 GM in DEXTROSE 5% 100 ML IV SCH (06:33)
[2022-04-28] MEDS: SODIUM CHLOR 7% 4 ML NEB NEB SCH ×2 (06:54→19:08)
[2022-04-28 07:36] LABS: Basophils # (auto) 0.02 K/uL (0-0.2); Basophils % (auto) 0.3 %; Eosinophils # (auto) 0.21 K/uL (0-0.50); Eosinophils % (auto) 2.9 %; Hematocrit (blood only) 33.8 % (34.1-44.9); Hemoglobin 10.5 g/dl (12.0-16.0); Immature Granulocytes # (auto) 0.08 K/uL (0.00-0.02); Immature Granulocytes % (auto) 1.1 %; Lymphocytes # (auto) 1.36 K/uL (1.2-3.4); Lymphocytes % (auto) 18.5 %; Mean Corpuscular Hemoglobin 27.4 pg (25.0-34.0); Mean Corpuscular Hgb Conc 31.1 g/dL (32.0-36.0); Mean Corpuscular Volume 88.3 fL (80.0-100.0); Mean Platelet Volume 10.7 fL (9.4-12.3); Monocytes % (auto) 5.4 %; Neutrophils # (auto) 5.28 K/uL (1.4-6.5); Neutrophils % (auto) 71.8 %; Platelet Count 255 K/uL (130-400); RDW Coefficient of Variation 14.6 % (11.5-14.5); RDW Standard Deviation 46.5 fL (36.4-46.3); Red Blood Count 3.83 M/uL (3.93-5.22); White Blood Count 7.35 K/ul (4.8-10.8)
[2022-04-28] MEDS: INSULIN ASPART PER UNIT SC SCH ×4 (08:18→20:31)
[2022-04-28 08:24] LABS: Albumin Globulin Ratio 0.7 (0.9-2); Albumin Level 2.9 gm/dl (3.4-5.0); Bilirubin,Total 0.5 mg/dl (0.2-1.0); Calcium 8.9 mg/dl (8.5-10.1); Est GFR (Non-African American) 59.5 ml/min; Globulin 3.9 gm/dl (2.5-4.0); Phosphorus 3.3 mg/dl (2.5-4.9); Potassium 3.4 mmol/L (3.5-5.1); Total Protein 6.8 gm/dl (6.0-8.3)
[2022-04-28] MEDS: FUROSEMIDE 40 MG TAB PO SCH (08:35)
[2022-04-28] MEDS: ATORVASTATIN 10 MG TAB PO SCH (08:35)
[2022-04-28] MEDS: DOXYCYCLINE HYCLATE 100 MG CAP PO SCH (08:35)
[2022-04-28] MEDS: METOPROLOL SUCC 50MG EXT REL TAB PO SCH (08:35)
[2022-04-28] MEDS: LOSARTAN POTASSIUM 50 MG TAB PO SCH (08:35)
[2022-04-28] MEDS ORDERED: POTASSIUM CHLORIDE CRTAB 20 MEQ TABCR PO STA (11:30)
[2022-04-28] MEDS: PANTOprazole 40 MG TAB PO SCH (12:46)
--- NOTE | 2022-04-28 16:42 | Hospitalist Progress Note ---
Date of Service April 28, 2022 Assessment & Plan (1) Acute respiratory failure with hypoxia: Plan: Likely secondary to multifocal pneumoniaviral plus likely bacterial given procalcitonin, overall improved but still needing oxygencontinue respiratory toilet; finished antibiotic coursestop (2) Multifocal pneumonia: Plan: Received a course of Zosyn plus Doxydiscontinue as aboveno change in ant ibiotics (3) Anemia: Plan: Quite prominent, lower declining hemoglobin; questionable melenaPPI, stool occult and observe (4) HTN (hypertension): Plan: - Pressures have recovered; home regimen (5) Diabetes: Plan: - Sugars reasonable, no change (6) Discoid lupus: Plan: -Not on current medical therapy . Quiescent (7) GERD (gastroesophageal reflux disease): Plan: - PO protonix (8) Hypercholesteremia: Plan: Statin therapy (9) CAD (coronary artery disease): Plan: - Continue aspirin Plan Hypokalemiareplace Admission and Anticipated Discharge Date Admission Date: April 21, 2022 Subjective Follow-up of presentation with fever, respiratory symptomsdoing well in general but still requiring oxygen at night and upon ambulation; on direct questioning "dark" stools though she was not sure whether melena Physical Exam Physical Exam: Constitutional and general: No acute distress, looks biologic age Head and face: No puffiness, atraumatic Eyes: No scleral icterus, extraocular movements normal Neck: Supple, no JVD Musculoskeletal: No acute joint swelling, no bony abnormalities Skin/dermatologic/integument: No rash, no purpura Hematologic and lymphatic: pallor +, no petechia Gastrointestinal/abdomen: Nondistended, soft, nonacuteno right upper quadrant signs Neurologic: Cranial nerves intact, nonfocal Psychiatry: Awake, alert, pleasant, communicative Cardiovascular: Heart rhythm regular, no rub, no murmur, no gallop Respiratory: Chest movements equal, no use of accessory muscles, no adventitious sounds; clear to auscultation Extremities: No edema, no cyanosis Results & Data Results & Data ([facility]) Vital Signs (Past 12 Hours) Vital Signs Temp Pulse Pulse Pulse Pulse Pulse Pulse 04/28/22 15:39 36.9 C 87 04/28/22 13:43 81 04/28/22 12:26 36.8 C 78 04/28/22 08:57 96 H 94 H 87 86 04/28/22 08:20 36.6 C 79 04/28/22 07:00 66 04/28/22 06:55 71 Resp Resp Resp Resp Resp BP Pulse Ox 04/28/22 15:39 17 130/65 95 04/28/22 13:43 18 93 04/28/22 12:26 20 169/72 H 95 04/28/22 08:57 20 20 18 18 04/28/22 08:20 18 148/68 H 92 04/28/22 07:00 04/28/22 06:55 18 93 Pulse Ox Pulse Ox Pulse Ox Pulse Ox O2 Del Method O2 Flow Rate O2 Flow Rate 04/28/22 15:39 Room Air 04/28/22 13:43 Room Air 04/28/22 12:26 Room Air 04/28/22 08:57 93 85 L 95 94 2 04/28/22 08:20 Nasal Cannula 1 04/28/22 07:00 04/28/22 06:55 Nasal Cannula 1 Laboratory Results Laboratory Results - last 24 hr 04/27/22 04/28/22 04/28/22 20:57 06:38 06:38 WBC 7.35 RBC 3.83 L Hgb 10.5 L Hct 33.8 L MCV 88.3 MCH 27.4 MCHC 31.1 L RDW Std Deviation 46.5 H RDW Coeff of Isa 14.6 H Plt Count 255 MPV 10.7 Immature Gran % (Auto) 1.1 Neut % (Auto) 71.8 Lymph % (Auto) 18.5 [place] % (Auto) 5.4 Eos % (Auto) 2.9 Baso % (Auto) 0.3 Neut # (Auto) 5.28 Lymph # (Auto) 1.36 [place] # (Auto) 0.40 Eos # (Auto) 0.21 Baso # (Auto) 0.02 Immature Gran # (Auto) 0.08 H Sodium 141 Potassium 3.4 L Chloride 106 Carbon Dioxide 29 Anion Gap 6 BUN 10 Creatinine 0.88 Est Cr Clr Drug Dosing 45.0 Est GFR ( Amer) 69.0 Est GFR (Non-Af Amer) 59.5 POC Glucose 123 H Fasting Glucose 117 H Calcium 8.9 Phosphorus 3.3 Magnesium 2.0 Total Bilirubin 0.5 AST 34 ALT 40 Alkaline Phosphatase 36 Total Protein 6.8 Albumin 2.9 L Globulin 3.9 Albumin/Globulin Ratio 0.7 L 04/28/22 04/28/22 04/28/22 07:31 11:13 16:26 WBC RBC Hgb Hct MCV MCH MCHC RDW Std Deviation RDW Coeff of Isa Plt Count MPV Immature Gran % (Auto) Neut % (Auto) Lymph % (Auto) [place] % (Auto) Eos % (Auto) Baso % (Auto) Neut # (Auto) Lymph # (Auto) [place] # (Auto) Eos # (Auto) Baso # (Auto) Immature Gran # (Auto) Sodium Potassium Chloride Carbon Dioxide Anion Gap BUN Creatinine Est Cr Clr Drug Dosing Est GFR ( Amer) Est GFR (Non-Af Amer) POC Glucose 126 H 108 H Pending Fasting Glucose Calcium Phosphorus Magnesium Total Bilirubin AST ALT Alkaline Phosphatase Total Protein Albumin Globulin Albumin/Globulin Ratio PG Care Time/CCT Total # of Minutes Spent Total Time Spent with Patient: Total time spent is greater than 50% in coordination of care (as documented) at patient's floor/unit and/or counseling patient: Coding Level of Care Code 83305 Subseq Hosp Care Lvl 2 Diagnoses Acute respiratory failure with hypoxia J96.01 Multifocal pneumonia J18.9 Anemia D64.9 HTN (hypertension) I10 Diabetes E11.9 Discoid lupus L93.0 GERD (gastroesophageal reflux disease) K21.9 Hypercholesteremia E78.00 CAD (coronary artery disease) I25.10
[2022-04-28] MEDS: amLODIPine BESYLATE 5 MG TAB PO SCH (20:28)
[2022-04-28] MEDS: ASPIRIN 81 MG ECTAB PO SCH (20:28)
[2022-04-28] MEDS: ENOXAPARIN INJ 40 MG/0.4 ML SYR SQ SCH (20:30)
[2022-04-29] MEDS: ALBUT/IPRATROP 3MG/0.5MG NEB 3 ML VIAL NEB SCH ×2 (00:11→08:00)
[2022-04-29] MEDS: guaiFENesin SUGAR FREE 100 MG/5 ML UDC PO SCH ×4 (03:36→22:32)
[2022-04-29] MEDS: INSULIN ASPART PER UNIT SC SCH ×4 (07:39→20:37)
[2022-04-29] MEDS: SODIUM CHLOR 7% 4 ML NEB NEB SCH (08:00)
[2022-04-29 08:12] LABS: Basophils # (auto) 0.01 K/uL (0-0.2); Basophils % (auto) 0.1 %; Eosinophils # (auto) 0.17 K/uL (0-0.50); Eosinophils % (auto) 2.5 %; Hematocrit (blood only) 33.8 % (34.1-44.9); Hemoglobin 10.8 g/dl (12.0-16.0); Immature Granulocytes # (auto) 0.07 K/uL (0.00-0.02); Lymphocytes # (auto) 1.52 K/uL (1.2-3.4); Lymphocytes % (auto) 22.7 %; Mean Corpuscular Volume 87.6 fL (80.0-100.0); Mean Platelet Volume 10.7 fL (9.4-12.3); Monocytes # (auto) 0.38 K/uL (0.24-0.82); Monocytes % (auto) 5.7 %; Neutrophils # (auto) 4.55 K/uL (1.4-6.5); Platelet Count 275 K/uL (130-400); RDW Coefficient of Variation 14.7 % (11.5-14.5); RDW Standard Deviation 46.7 fL (36.4-46.3); Red Blood Count 3.86 M/uL (3.93-5.22)
[2022-04-29 08:36] LABS: Albumin Globulin Ratio 0.7 (0.9-2); Albumin Level 2.9 gm/dl (3.4-5.0); Bilirubin,Total 0.4 mg/dl (0.2-1.0); Calcium 9.1 mg/dl (8.5-10.1); Creatinine Clr Calc Pharmacy 41.6 ml/min; Est GFR (African American) 62.9 ml/min; Est GFR (Non-African American) 54.2 ml/min; Magnesium 2.1 mg/dl (1.7-2.4); Phosphorus 3.1 mg/dl (2.5-4.9); Potassium 3.7 mmol/L (3.5-5.1); Total Protein 6.9 gm/dl (6.0-8.3)
[2022-04-29] MEDS: LOSARTAN POTASSIUM 50 MG TAB PO SCH (09:33)
[2022-04-29] MEDS: METOPROLOL SUCC 50MG EXT REL TAB PO SCH (09:33)
[2022-04-29] MEDS: ATORVASTATIN 10 MG TAB PO SCH (09:33)
[2022-04-29] MEDS: PANTOprazole 40 MG TAB PO SCH (09:33)
[2022-04-29] MEDS: FUROSEMIDE 40 MG TAB PO SCH (09:33)
[2022-04-29] MEDS ORDERED: IPRATROPIUM BROMIDE/ALBUTEROL respimat INH INH PRN (12:29)
--- NOTE | 2022-04-29 13:50 | Hospitalist Progress Note ---
Date of Service April 29, 2022 Assessment & Plan (1) Acute respiratory failure with hypoxia: Plan: Likely secondary to multifocal pneumoniaviral plus likely bacterial given procalcitonin, overall improved but still needing oxygen at night and during ambulation; no qualifying diagnosis for home oxygen (discussed with case management) Thereforeresume home CPAP, nocturnal pulse ox; stop nebulizations, stop chest vest, inhalers as needed; will need to repeat two-step in a.m. as long as no need for home oxygen DC; finished antibiotic course; stopped per homecontinue respiratory toilet; finished antibiotic coursestop In summary, put her on a regimen that she can undertake at home and see how she doeshopefully if she stays off oxygen then can DC (2) Multifocal pneumonia: Plan: Received a course of Zosyn plus Doxydiscontinue as aboveno change in antibiotics (3) Anemia: Plan: Stable after somewhat abrupt drop; no known bleeding; however, some "dark" stools; have asked nursing to observe but since there is lack of clarity stool occult (4) HTN (hypertension): Plan: - Pressures have recovered; home regimen reinstituted yesterday didno more change today (5) Diabetes: Plan: - Sugars reasonable, no change (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 Physical Exam Physical Exam: Constitutional and general: No acute distress, looks biologic age Head and face: No puffiness, atraumatic Eyes: No scleral icterus, extraocular movements normal Neck: Supple, no JVD Musculoskeletal: No acute joint swelling, no bony abnormalities Skin/dermatologic/integument: No rash, no purpura Hematologic and lymphatic: pallor +, no petechia Gastrointestinal/abdomen: Nondistended, soft, nonacuteno right upper quadrant signs Neurologic: Cranial nerves intact, nonfocal Psychiatry: Awake, alert, pleasant, communicative Cardiovascular: Heart rhythm regular, no rub, no murmur, no gallop Respiratory: Chest movements equal, no use of accessory muscles, no adventitious sounds; clear to auscultation Extremities: No edema, no cyanosis Results & Data Results & Data ([facility]) Vital Signs (Past 12 Hours) Vital Signs Temp Pulse Pulse Resp BP Pulse Ox O2 Del Method 04/29/22 12:13 36.5 C 78 20 153/67 H 95 Room Air 04/29/22 08:20 36.6 C 76 18 155/75 H 93 Room Air 04/29/22 08:00 80 18 93 Room Air 04/29/22 07:00 68 04/29/22 03:33 36.5 C 80 16 147/75 H 93 Room Air Laboratory Results Laboratory Results - last 24 hr 04/28/22 04/28/22 04/29/22 16:26 20:21 07:25 WBC RBC Hgb Hct MCV MCH MCHC RDW Std Deviation RDW Coeff of Isa Plt Count MPV Immature Gran % (Auto) Neut % (Auto) Lymph % (Auto) Crisp % (Auto) Eos % (Auto) Baso % (Auto) Neut # (Auto) Lymph # (Auto) Crisp # (Auto) Eos # (Auto) Baso # (Auto) Immature Gran # (Auto) Sodium Potassium Chloride Carbon Dioxide Anion Gap BUN Creatinine Est Cr Clr Drug Dosing Est GFR ( Amer) Est GFR (Non-Af Amer) POC Glucose 126 H 141 H 112 H Fasting Glucose Calcium Phosphorus Magnesium Total Bilirubin AST ALT Alkaline Phosphatase Total Protein Albumin Globulin Albumin/Globulin Ratio 04/29/22 04/29/22 04/29/22 07:27 07:27 11:21 WBC 6.70 RBC 3.86 L Hgb 10.8 L Hct 33.8 L MCV 87.6 MCH 28.0 MCHC 32.0 RDW Std Deviation 46.7 H RDW Coeff of Isa 14.7 H Plt Count 275 MPV 10.7 Immature Gran % (Auto) 1.0 Neut % (Auto) 68.0 Lymph % (Auto) 22.7 Crisp % (Auto) 5.7 Eos % (Auto) 2.5 Baso % (Auto) 0.1 Neut # (Auto) 4.55 Lymph # (Auto) 1.52 Crisp # (Auto) 0.38 Eos # (Auto) 0.17 Baso # (Auto) 0.01 Immature Gran # (Auto) 0.07 H Sodium 142 Potassium 3.7 Chloride 108 H Carbon Dioxide 29 Anion Gap 5 BUN 8 Creatinine 0.95 Est Cr Clr Drug Dosing 41.6 Est GFR ( Amer) 62.9 Est GFR (Non-Af Amer) 54.2 POC Glucose 103 H Fasting Glucose 114 H Calcium 9.1 Phosphorus 3.1 Magnesium 2.1 Total Bilirubin 0.4 AST 31 ALT 36 Alkaline Phosphatase 39 Total Protein 6.9 Albumin 2.9 L Globulin 4.0 Albumin/Globulin Ratio 0.7 L PG Care Time/CCT Total # of Minutes Spent Total Time Spent with Patient: Total time spent is greater than 50% in coordination of care (as documented) at patient's floor/unit and/or counseling patient: Coding Level of Care Code 66764 Subseq Hosp Care Lvl 2 Diagnoses Acute respiratory failure with hypoxia J96.01 Multifocal pneumonia J18.9 Anemia D64.9 HTN (hypertension) I10 Diabetes E11.9 Discoid lupus L93.0 GERD (gastroesophageal reflux disease) K21.9 Hypercholesteremia E78.00 CAD (coronary artery disease) I25.10 EVELYN (obstructive sleep apnea) G47.33
[2022-04-29] MEDS ORDERED: ALBUTEROL HFA 8 GM INHALER INH SCH (15:00)
[2022-04-29] MEDS ORDERED: ALBUTEROL HFA 8 GM INHALER INH PRN (15:00)
[2022-04-29] MEDS ORDERED: IPRATROPIUM BROMIDE HFA INHALER INH SCH (15:00)
[2022-04-29] MEDS ORDERED: IPRATROPIUM BROMIDE HFA INHALER INH PRN (15:00)
[2022-04-29] MEDS: ENOXAPARIN INJ 40 MG/0.4 ML SYR SQ SCH (20:03)
[2022-04-29] MEDS: amLODIPine BESYLATE 5 MG TAB PO SCH (20:03)
[2022-04-29] MEDS: ASPIRIN 81 MG ECTAB PO SCH (20:03)
[2022-04-30] MEDS: guaiFENesin SUGAR FREE 100 MG/5 ML UDC PO SCH ×2 (05:23→09:19)
[2022-04-30 06:09] LABS: Basophils # (auto) 0.02 K/uL (0-0.2); Basophils % (auto) 0.3 %; Eosinophils # (auto) 0.12 K/uL (0-0.50); Hematocrit (blood only) 35.8 % (34.1-44.9); Hemoglobin 11.4 g/dl (12.0-16.0); Immature Granulocytes # (auto) 0.04 K/uL (0.00-0.02); Immature Granulocytes % (auto) 0.7 %; Lymphocytes # (auto) 1.64 K/uL (1.2-3.4); Lymphocytes % (auto) 27.4 %; Mean Corpuscular Hemoglobin 28.1 pg (25.0-34.0); Mean Corpuscular Hgb Conc 31.8 g/dL (32.0-36.0); Mean Corpuscular Volume 88.4 fL (80.0-100.0); Mean Platelet Volume 10.3 fL (9.4-12.3); Monocytes # (auto) 0.39 K/uL (0.24-0.82); Monocytes % (auto) 6.5 %; Neutrophils # (auto) 3.78 K/uL (1.4-6.5); Neutrophils % (auto) 63.1 %; Platelet Count 290 K/uL (130-400); RDW Coefficient of Variation 14.7 % (11.5-14.5); RDW Standard Deviation 47.2 fL (36.4-46.3); Red Blood Count 4.05 M/uL (3.93-5.22); White Blood Count 5.99 K/ul (4.8-10.8)
[2022-04-30 06:35] LABS: Albumin Globulin Ratio 0.8 (0.9-2); Bilirubin,Total 0.5 mg/dl (0.2-1.0); Calcium 9.1 mg/dl (8.5-10.1); Creatinine Clr Calc Pharmacy 42.5 ml/min; Est GFR (African American) 62.9 ml/min; Est GFR (Non-African American) 54.2 ml/min; Globulin 3.9 gm/dl (2.5-4.0); Phosphorus 2.9 mg/dl (2.5-4.9); Potassium 3.3 mmol/L (3.5-5.1); Total Protein 6.9 gm/dl (6.0-8.3)
[2022-04-30] MEDS: LOSARTAN POTASSIUM 50 MG TAB PO SCH (09:18)
[2022-04-30] MEDS: ATORVASTATIN 10 MG TAB PO SCH (09:19)
[2022-04-30] MEDS: PANTOprazole 40 MG TAB PO SCH (09:19)
[2022-04-30] MEDS: METOPROLOL SUCC 50MG EXT REL TAB PO SCH (09:19)
[2022-04-30] MEDS: FUROSEMIDE 40 MG TAB PO SCH (09:19)
[2022-04-30] MEDS: INSULIN ASPART PER UNIT SC SCH ×2 (09:24→12:26)
--- NOTE | 2022-04-30 15:07 | Discharge Summary ---
Date of Service April 30, 2022 Admission HPI Per Admitting Provider Beata is an 87 year old female with a PMH significant for Discoid lupus, GERD, EVELYN, HFpEF, CKD III, DMII, CAD, HTN, previous DVT, hypercholesterolemia who presented to the [facility] ED on 04/21/22 with complaints of URI symptoms, fever, and weakness. In the ED the patient was found to be hypoxic at 88% on RA, she was placed on 3L NC and remained stable. Her laboratory results were significant for a procal of 6.43 and viral panel positive for Rhinovirus. CXR was read as unremarkable but CTof the chest WO contrast was remarkable for patchy airspace disease, likely pneumonia. The patient was started Cefepime and Doxycycline. At the time of the exam the patient was resting in bed in no acute distress with her daughter sitting bedside. They state that she began having URI symptoms and fever approximately 5 days ago. She was recenetly in close contact with a friend who tested positive for rhinovirus. She has been having a productive cough with white sputum, fever of 102 but has not been very SOB. She had one episode of vomiting on Saturday and thinks she may have choked when it occurred. She denies lightheadedness, dizziness, chest pain, pleuritic chest pain, dysuria, hematuria, and recent falls. Principal Diagnosis Multifocal pneumonia - Presumed viral and superimposed bacterial Discharge Exam Lungs CTA, RRR, no distress Discharge Data Allergies Allergy/AdvReac Type Severity Reaction Status Date / Time Sulfa (Sulfonamide Allergy Unknown RASH Verified 04/21/22 15:57 Antibiotics) Consultations 04/21/22 15:28 ED Decision to Admit Stat Ordered Studies 04/21/22 14:04 CT chest diagnostic wo con Stat 04/24/22 10:23 US venous duplex arm [US venous doppler UE LT] Urgent Hospital Course (1) Acute respiratory failure with hypoxia: Likely secondary to multifocal pneumonia. Enterovirus respiratory PCR positive on admission. Presumed some element of bacterial infection as well given elevated procalcitonin which improved with abx. - Finished course of antibiotics while inpatient. - Required substantial O2 at first, but improved to room air by discharge. - Discharged with good pulmonary toilet to home; declines home PT/OT and doing well enough that no rehab needed. (2) Multifocal pneumonia: Received a course of Zosyn plus Doxyfinished while inpatient. (3) Anemia: Stable after somewhat abrupt drop; no known bleeding; however, some "dark" stools; have asked nursing to observe but since there is lack of clarity stool occult. - Hgb stable for at least 1 week; monitor as outpatient. (4) HTN (hypertension): - Pressures have recovered; home regimen reinstituted - No change on d/c. (5) Diabetes: No A1c drawn while inpatient. - Continue home metformin on discharge. Outpatient f/u. (6) Discoid lupus: -Not on current medical therapy. Quiescent (7) GERD (gastroesophageal reflux disease): - PO protonix (8) Hypercholesteremia: Statin therapy (9) CAD (coronary artery disease): - Continue aspirin (10) EVELYN (obstructive sleep apnea): Home CPAP -> Arranging 2L "bleed through" for overnight desaturations. Total Time Total Time Spent Total Time Spent (In Minutes): 35 Discharge Plan Discharge Items Patient Disposition: Home - Self-Care Reason For Visit: URI SYMPTOMS Discharge Diagnosis: Multifocal pneumonia Activity: Resume your previous activity Non-emergency contact: Primary Care Provider Call non-emergency contact if: your symptoms worsen and your temperature is above 101 Follow-up/Referrals: Willow Magaña CRNP [Primary Care Provider] - Diet: Carb Consistent or DM2 and Heart Healthy Addtl Attending Provider Instructions: Ms. Arciniega, You were admitted to the hospital with pneumonia. Luckily, you are doing much better! Antibiotics for the win! You needed quite a bit of oxygen when you were here, but have been steadily improving and do not need any while awake. We are arranging some oxygen to "bleed through" in your CPAP device overnight. The Pig [employer] Supervisor is working on this now, but this won't keep you in the hospital. Please follow-up with your PCP in the next 1-2 weeks to be sure you are doing well after such an eventful hospital stay; however, I am very happy that you are ready to leave the hospital. Take care! Ludin Garcia MD Pending Studies at Discharge: No Stand-Alone Forms: [facility], Smoking Cessation Medications and DC Order Prescriptions: Continued furosemide 40 mg Tablet 40 mg PO QAM vitamin E 1,000 unit Capsule 1,000 unit PO DAILY metformin 500 mg Tablet 500 mg PO BID metoprolol succinate 100 mg Tablet Extended Release 24 Hr 100 mg PO QAM amlodipine 5 mg Tablet 5 mg PO HS aspirin 81 mg Tablet,Delayed Release (Dr/Ec) 81 mg PO HS potassium chloride [Klor-Con M20] 20 mEq Tablet,Er Particles/Crystals 20 meq PO QAM coenzyme Q10 [CoQ-10] 100 mg Capsule 100 mg PO DAILY losartan 50 mg Tablet 50 mg PO QAM atorvastatin 10 mg tablet 10 mg PO DAILY Discharge Orders: Discharge Order (Routine); Ordered 04/30/22 Ordered By: Ludin Garcia Admission Data Admit Date/Time: 04/21/22 15:42 Attending Provider: Ludin Garcia Admit Provider: Bart Davila Primary Care Provider: Willow Magaña Other Providers: Bart Davila ; Neville Negron Coding Level of Care Code D/C DAY MANAGEMENT >30 MINS Diagnoses Acute respiratory failure with hypoxia J96.01 Multifocal pneumonia J18.9 Anemia D64.9 HTN (hypertension) I10 Diabetes E11.9 Discoid lupus L93.0 GERD (gastroesophageal reflux disease) K21.9 Hypercholesteremia E78.00 CAD (coronary artery disease) I25.10 EVELYN (obstructive sleep apnea) G47.33
--- NOTE | 2022-05-09 05:40 | Coding Query ---
CODING QUERY To promote full compliance with coding requirements relating to patient care, provider participation is requested in all cases of marker shipments uncertainty. Please assist us with the question(s) below: Coding Question(s): Patient admitted with multifocal pneumonia, acute respiratory failure. Discharge Summary mentions multifocal pneumonia presumed viral and superimposed bacterial pneumonia. 04/22 communication note addendum stated viral/bacterial /aspiration pneumonia. 04/23 pn viral , could have aspiration. Seeking to determine if possible Aspiration Pneumonia was also treated with the viral and bacterial pneumonias. Please check below and thank you . Elvin Costello [facility] Physician's Response(s): ____x____ Aspiration Pneumonia was treated during this Inpatient Stay Aspiration Pneumonia was not treated during this Admission Cannot clinically correlate if Aspiration Pneumonia was treated during this Inpatient Stay Other: Please document: Principal Diagnosis: "that condition established after study, to be chiefly responsible for occasioning the admission of the patient to the hospital for care." Co-Existing Principal Diagnosis: "when two or more diagnoses equally meet the criteria for principal diagnosis as determined by the circumstances of admission, diagnostic work up, and/or therapy provided, and the Alphabetic Index, Tabular List, or another coding guideline does not provide sequencing direction, any one of the diagnoses may be sequenced first." "When the physician has documented what appears to be a current diagnosis in the body of the record, but has not included the diagnosis in the final diagnostic statement, the physician should be asked whether the diagnosis should be added." (Source [facility]oding [facility] 2 QTR90. p3-4) GRAHAM
== END 2022-04-30 16:20 | disposition home or self-care (01) | DRG 177 ==
LOC: ED 12:03 → 2S 15:42 → SUATTDRO 15:42 → 2S 17:10

== ENCOUNTER 2022-05-24 10:33 | Inpatient (IN) ==
--- NOTE | 2022-05-24 11:11 | ED Triage Note ---
Date of Service May 24, 2022 History of Present Illness This patient was briefly evaluated while in triage. An abbreviated physical exam was performed. This patient is a 87-year-old Female with recent admission for pneumonia who presents to the ED for evaluation of vomiting and weakness. Patient has felt weak recently. She had an episode of vomiting yesterday. Her daughter is concerned about possible aspiration due to the episode of vomiting. Physical Exam VITALS: Vitals are noted on the nurse's note and reviewed by myself. GENERAL: This is an 87-year-old female in no acute distress. SKIN: The skin was without rashes. MOUTH: Mucous membranes moist. HEART: Regular rate and rhythm without murmurs gallops or rubs. LUNGS: Clear to auscultation bilaterally without wheezes, rales or rhonchi. ABDOMEN: Positive bowel sounds x 4. Soft, nontender to palpation. NEURO: Patient was alert and oriented to person place and time. Initial orders for labs and / or imaging were placed and patient was placed in the waiting area until a bed is available. Please see further documentation for the full ED course.
--- NOTE | 2022-05-24 11:35 | XRay Report ---
XR chest 1V portable CLINICAL HISTORY: weakness COMPARISON STUDY: Chest radiograph April 24, 2022. Chest CT April 21, 2022. FINDINGS: No pneumothorax or pleural effusion is present. Irregular left upper lobe opacity persists. This is either stable or slightly decreased since prior exam. This remains indeterminate. No evidenc e for pulmonary edema. No new sites of consolidation. IMPRESSION: 1. No acute cardiopulmonary findings. 2. Persistent left upper lobe irregular opacity, either stable or slightly decreased in extent since prior exam. This remains indeterminate. Follow-up PA and lateral chest radiographs in one month are r ecommended. ACT 112: Negative or not required by law. Electronically signed by: Naveed Paulson M.D. 05/24/2022 11:34 AM
[2022-05-24 12:35] LABS: Basophils # (auto) 0.02 K/uL (0-0.2); Basophils % (auto) 0.2 %; Eosinophils # (auto) 0.01 K/uL (0-0.50); Eosinophils % (auto) 0.1 %; Hematocrit (blood only) 37.3 % (34.1-44.9); Hemoglobin 11.9 g/dl (12.0-16.0); Immature Granulocytes # (auto) 0.09 K/uL (0.00-0.02); Immature Granulocytes % (auto) 0.7 %; Lymphocytes # (auto) 1.44 K/uL (1.2-3.4); Mean Corpuscular Hemoglobin 27.7 pg (25.0-34.0); Mean Corpuscular Hgb Conc 31.9 g/dL (32.0-36.0); Mean Corpuscular Volume 86.7 fL (80.0-100.0); Mean Platelet Volume 11.3 fL (9.4-12.3); Monocytes # (auto) 0.87 K/uL (0.24-0.82); Monocytes % (auto) 6.7 %; Neutrophils # (auto) 10.62 K/uL (1.4-6.5); Neutrophils % (auto) 81.3 %; Platelet Count 162 K/uL (130-400); RDW Coefficient of Variation 14.9 % (11.5-14.5); RDW Standard Deviation 47.5 fL (36.4-46.3); White Blood Count 13.05 K/ul (4.8-10.8)
[2022-05-24 12:53] LABS: Albumin Globulin Ratio 0.9 (0.9-2); Albumin Level 3.6 gm/dl (3.4-5.0); Bilirubin,Total 0.7 mg/dl (0.2-1.0); Calcium 10.1 mg/dl (8.5-10.1); Creatinine Clr Calc Pharmacy 25.6 ml/min; Est GFR (African American) 35.3 ml/min; Est GFR (Non-African American) 30.5 ml/min; Globulin 4.2 gm/dl (2.5-4.0); Magnesium 1.6 mg/dl (1.7-2.4); Potassium 4.1 mmol/L (3.5-5.1); Total Protein 7.8 gm/dl (6.0-8.3)
[2022-05-24 13:13] LABS: Influenza A virus by PCR Negative (Neg); Influenza B virus by PCR Negative (Neg); RSV by PCR Negative (Neg); SARS CoV2 RNA(COVID-19) InHosp NEGATIVE (Negative)
[2022-05-24] MEDS ORDERED: ONDANSETRON INJ 2 MG/ML 2 ML VIAL IV STA (15:48)
[2022-05-24] MEDS ORDERED: MAGNESIUM SULFATE / D5W 1 GM/100 ML BAG IV STA (15:48)
[2022-05-24] MEDS ORDERED: SODIUM CHLORIDE 0.9% 1000ML 1,000 ML IV ONE (15:48)
--- NOTE | 2022-05-24 15:51 | Emergency Department Note ---
Impression & Plan Weakness, Leukocytosis, ISAAC (acute kidney injury), Acute UTI, Acute hyponatremia, Hypomagnesemia ED Provider Note NAME: PARK ALCOCER AGE: 87 SEX: F : 1935 ARRIVES VIA: Walk-In INFORMANT: [Patient][daughter] ED PROVIDER(S): [Poli Maldonado MD] CHIEF COMPLAINT: Weakness HISTORY OF PRESENT ILLNESS: The patient is an 87-year-old female presents to the ER with 1 week of increasing weakness. She was discharged from our hospital last month, about 3 weeks ago after having pneumonia. She was doing well for a while but in the last week, especially the last 2 days, she has been quite weak. The patient complains of no appetite. She feels washed out. 2 nights ago, she did vomit during the night and actually fell out of bed. She woke up on the floor. She bumped her head but does not have any significant headache. There has been no fever, no shortness of breath or cough, no chest or abdominal pain. No urinary complaints. The patient's daughter is at bedside, she states her mother was so weak today that she could barely even stand on her own. Patient was also a bit confused today. They present for evaluation. REVIEW OF SYSTEMS: See HPI for pertinent positives and negatives. A total of ten systems were reviewed and were otherwise negative. PMHx/PSHx: See Below SOCIAL HISTORY: See Below. PHYSICAL EXAM: GENERAL: Patient is in no acute distress. HEENT: No scalp hematomas, no lacerations. Mucous membranes are somewhat dry. NECK: No stridor, no adenopathy, no meningismus, trachea is midline. LUNGS: Clear to auscultation bilaterally, no wheeze, no rhonchi, breath sounds equal. Sounds are diminished bilaterally. HEART: Mildly tachycardic, no murmurs. An occasional extra beat was noted. ABDOMEN: Soft, nontender, bowel sounds positive, no peritonitis. EXTREMITIES: No cyanosis or edema, full range of motion of all the joints without pain or difficulty, no signs for acute trauma. NEUROLOGIC: Oriented x 3, no acute motor or sensory deficits, no focal weakness. No facial droop or speech slur. SKIN: No rash, no jaundice, no diaphoresis. DIFFERENTIAL DIAGNOSIS: Infection, dehydration, UTI, metabolic abnormality, hypo/hyperglycemia, electrolyte disturbance, anemia, hypoxia, cardiac sources, intracerebral event, toxicologic issues, stroke, TIA, as well as other pathologies. EMERGENCY DEPARTMENT COURSE/PROCEDURES: ECG: Indication was weakness. The ECG shows a sinus tachycardia with a rate of 102. 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 There is no ST elevation, no PVCs. The QTc is 432. Compared to an ECG from 22 April 2022, PVCs are no longer present, criteria for old anterior infarct are now noted. Continuous Cardiac Monitoring: An order was placed for continuous cardiac monitoring. The monitor shows a rate of 114 with sinus tachycardia. MEDICAL DECISION MAKING: There is a mild leukocytosis which would be consistent with infection. No concerning anemia. There was a normal platelet count. Sodium was low at 132, there was some mild acute kidney injury with a creatinine of 1.53. Magnesium was low 1.6. No worrisome liver enzyme elevation. ECG showed a sinus tachyc ardia, no obvious acute ischemia. Cardiac enzyme testing x1 is not consistent with acute cardiac injury. Urinalysis was consistent with infection. COVID, influenza and RSV test were negative. Chest x-ray showed a potential chronic finding, there was no obvious pneumonia, no CHF. Brain CT showed no acute bleed or mass-effect. The patient was cooperative and seemed comfortable on exam, she was tachycardic. The patient was given IV saline, 1.5 L. She received IV Zofran. She was given IV magnesium. She received IV ceftriaxone. The patient presents weak and washed out. She has some laboratory findings that require attention. She appears to have a UTI which may have been the start of this whole downward slide. I do think a hospital stay is warranted. She is not safe for discharge home. I spoke with the patient and case management, I spoke with the patient's daughter, the on-call hospitalist was consulted. Past Med/Surg History Medical History Diabetes History of DVT (deep vein thrombosis) AGE 20'S History of kidney stones HTN (hypertension) Hypercholesteremia Surgical History History of cataract surgery History of cholecystectomy History of colonoscopy History of D&C MULTIPLE History of eye surgery History of hysterectomy History of vein stripping 30 YR AGO Social History Smoking Status: Never smoker Second Hand Exposure: Yes (hx); Hx Alcohol Use: No Hx Substance Use: No Preferred Language: Mongolian Communication Ability: Effective Ad Operations Coordinator Required: No Beliefs That Will Affect Care: None Current Living Situation: Alone How many Children do You have: 3 Feels Safe at Home: Yes Assistive Devices: None Allergies Allergies Allergy/AdvReac Type Severity Reaction Status Date / Time Sulfa (Sulfonamide Allergy Unknown RASH Verified 05/24/22 19:59 Antibiotics) scallops Allergy Unknown Unverified 05/24/22 19:59 Home Meds Home Medications Medication Instructions Recorded Confirmed amlodipine 5 mg tablet 5 mg PO HS 06/28/21 05/24/22 aspirin 81 mg tablet,delayed 81 mg PO HS 06/28/21 05/24/22 release coenzyme Q10 100 mg capsule 100 mg PO DAILY 06/28/21 05/24/22 (CoQ-10) furosemide 40 mg tablet 40 mg PO QAM 06/28/21 05/24/22 losartan 50 mg tablet 50 mg PO QAM 06/28/21 05/24/22 metformin 500 mg tablet 500 mg PO BID 06/28/21 05/24/22 metoprolol succinate 100 mg 100 mg PO QAM 06/28/21 05/24/22 tablet,extended release 24 hr potassium chloride 20 mEq 20 meq PO QAM 06/28/21 05/24/22 tablet,extended release(part/cryst) (Klor-Con M) vitamin E 670 mg (1,000 unit) 1,000 unit PO DAILY 06/28/21 05/24/22 capsule atorvastatin 10 mg tablet 10 mg PO DAILY 04/21/22 05/24/22 pantoprazole 40 mg tablet,delayed 40 mg PO DAILY 05/24/22 05/24/22 release Results & Data (ED) Vital Signs Vital Signs - 24 hr 05/24/22 11:06 05/24/22 15:58 05/24/22 17:30 Temperature 36.7 C Temperature Source Temporal Artery Scan Pulse Rate 114 H 112 H Pulse Rate [Apical] 106 H Respiratory Rate 20 17 25 H Respiratory Effort / Characteristics Non-Labored Respiratory Depth Normal Blood Pressure 134/75 Blood Pressure [Right Arm] 157/75 H Blood Pressure Mean 94 Blood Pressure Mean [Right Arm] 102 Pulse Oximetry 93 90 Oxygen Delivery Method Room Air Room Air Room Air Sepsis Recent Fever Within 48 Hours No Sepsis New/Unexplained Change in Mental Status N/A Sepsis Action Taken by Nursing No Action Required 05/24/22 17:40 Temperature Temperature Source Pulse Rate 109 H Pulse Rate [Apical] Respiratory Rate 24 Respiratory Effort / Characteristics Respiratory Depth Blood Pressure Blood Pressure [Right Arm] Blood Pressure Mean Blood Pressure Mean [Right Arm] Pulse Oximetry Oxygen Delivery Method Room Air Sepsis Recent Fever Within 48 Hours Sepsis New/Unexplained Change in Mental Status Sepsis Action Taken by [facility] Medications Current Medication List: was personally reviewed by me Laboratory Data Attestation: I reviewed the patient's lab results. Result diagrams: 05/24/22 12:07 05/24/22 12:07 Lab Results 05/24/22 05/24/22 05/24/22 Range/Units 12:07 12:07 12:07 WBC 13.05 H (4.8-10.8) K/ul RBC 4.30 (3.93-5.22) M/uL Hgb 11.9 L (12.0-16.0) g/dl Hct 37.3 (34.1-44.9) % MCV 86.7 (80.0-100.0) fL MCH 27.7 (25.0-34.0) pg MCHC 31.9 L (32.0-36.0) g/dL RDW Std Deviation 47.5 H (36.4-46.3) fL RDW Coeff of Isa 14.9 H (11.5-14.5) % Plt Count 162 (130-400) K/uL MPV 11.3 (9.4-12.3) fL Immature Gran % (Auto) 0.7 % Neut % (Auto) 81.3 % Lymph % (Auto) 11.0 % Hidalgo % (Auto) 6.7 % Eos % (Auto) 0.1 % Baso % (Auto) 0.2 % Neut # (Auto) 10.62 H (1.4-6.5) K/uL Lymph # (Auto) 1.44 (1.2-3.4) K/uL Hidalgo # (Auto) 0.87 H (0.24-0.82) K/uL Eos # (Auto) 0.01 (0-0.50) K/uL Baso # (Auto) 0.02 (0-0.2) K/uL Immature Gran # (Auto) 0.09 H (0.00-0.02) K/uL Sodium 132 L (136-145) mmol/L Potassium 4.1 (3.5-5.1) mmol/L Chloride 97 L (98-107) mmol/L Carbon Dioxide 26 (21-32) mmol/L Anion Gap 9 (3-11) BUN 23 (6-23) mg/dl Creatinine 1.53 H (0.6-1.2) mg/dl Est Cr Clr Drug Dosing 25.6 ml/min Est GFR ( Amer) 35.3 ml/min Est GFR (Non-Af Amer) 30.5 ml/min BUN/Creatinine Ratio 15.0 (10-20) Glucose 165 H (70-99(Fasting)) mg/dl Calcium 10.1 (8.5-10.1) mg/dl Magnesium 1.6 L (1.7-2.4) mg/dl Total Bilirubin 0.7 (0.2-1.0) mg/dl AST 51 H (13-39) U/L ALT 18 (7-52) U/L Alkaline Phosphatase 39 (34-104) U/L Troponin I High Sens (0-14) pg/ml Total Protein 7.8 (6.0-8.3) gm/dl Albumin 3.6 (3.4-5.0) gm/dl Globulin 4.2 H (2.5-4.0) gm/dl Albumin/Globulin Ratio 0.9 (0.9-2) Urine Color Urine Appearance (Clear) Urine pH (4.5-7.5) Ur Specific Merrill (1.000-1.030) Urine Protein (Negative) Urine Glucose (UA) (Negative) Urine Ketones (Negative) Urine Blood (Negative) Urine Nitrite (Negative) Urine Bilirubin (Negative) Urine Urobilinogen (Negative) Ur Leukocyte Esterase (Negative) Urine WBC (Auto) (0-5) /hpf Urine RBC (Auto) (0-4) /hpf U Hyaline Cast (Auto) (0-5) /lpf U Epithel Cells (Auto) (0-5) /lpf Urine Bacteria (Auto) (Negative) SARS-CoV-2 (PCR) NEGATIVE (Negative) Influenza Type A (PCR) Negative (Neg) Influenza Type B (PCR) Negative (Neg) RSV (RT-PCR) Negative (Neg) 05/24/22 05/24/22 Range/Units 12:07 17:30 WBC (4.8-10.8) K/ul RBC (3.93-5.22) M/uL Hgb (12.0-16.0) g/dl Hct (34.1-44.9) % MCV (80.0-100.0) fL MCH (25.0-34.0) pg MCHC (32.0-36.0) g/dL RDW Std Deviation (36.4-46.3) fL RDW Coeff of Isa (11.5-14.5) % Plt Count (130-400) K/uL MPV (9.4-12.3) fL Immature Gran % (Auto) % Neut % (Auto) % Lymph % (Auto) % Hidalgo % (Auto) % Eos % (Auto) % Baso % (Auto) % Neut # (Auto) (1.4-6.5) K/uL Lymph # (Auto) (1.2-3.4) K/uL Hidalgo # (Auto) (0.24-0.82) K/uL Eos # (Auto) (0-0.50) K/uL Baso # (Auto) (0-0.2) K/uL Immature Gran # (Auto) (0.00-0.02) K/uL Sodium (136-145) mmol/L Potassium (3.5-5.1) mmol/L Chloride (98-107) mmol/L Carbon Dioxide (21-32) mmol/L Anion Gap (3-11) BUN (6-23) mg/dl Creatinine (0.6-1.2) mg/dl Est Cr Clr Drug Dosing ml/min Est GFR ( Amer) ml/min Est GFR (Non-Af Amer) ml/min BUN/Creatinine Ratio (10-20) Glucose (70-99(Fasting)) mg/dl Calcium (8.5-10.1) mg/dl Magnesium (1.7-2.4) mg/dl Total Bilirubin (0.2-1.0) mg/dl AST (13-39) U/L ALT (7-52) U/L Alkaline Phosphatase (34-104) U/L Troponin I High Sens 12.6 (0-14) pg/ml Total Protein (6.0-8.3) gm/dl Albumin (3.4-5.0) gm/dl Globulin (2.5-4.0) gm/dl Albumin/Globulin Ratio (0.9-2) Urine Color Yellow Urine Appearance Turbid A (Clear) Urine pH 6.0 (4.5-7.5) Ur Specific Merrill 1.011 (1.000-1.030) Urine Protein 2+ H (Negative) Urine Glucose (UA) Negative (Negative) Urine Ketones Negative (Negative) Urine Blood 2+ H (Negative) Urine Nitrite Negative (Negative) Urine Bilirubin Negative (Negative) Urine Urobilinogen Negative (Negative) Ur Leukocyte Esterase 3+ H (Negative) Urine WBC (Auto) >30 H (0-5) /hpf Urine RBC (Auto) 5-10 H (0-4) /hpf U Hyaline Cast (Auto) 1-5 (0-5) /lpf U Epithel Cells (Auto) >30 H (0-5) /lpf Urine Bacteria (Auto) 2+ H (Negative) SARS-CoV-2 (PCR) (Negative) Influenza Type A (PCR) (Neg) Influenza Type B (PCR) (Neg) RSV (RT-PCR) (Neg) Administered Medications Acetaminophen (Acetaminophen 325 Mg Tab) 650 mg PO Q4H PRN PRN Reason: pain/fever Stop: 06/23/22 20:57 Last Admin: 05/24/22 21:13 Dose: 650 mg Documented By: ED Amlodipine Besylate (Amlodipine Besylate 5 Mg Tab) 5 mg PO HS FLOWER Stop: 06/23/22 20:59 Last Admin: 05/24/22 21:50 Dose: 5 mg Documented By: ED Aspirin (Aspirin 81 Mg Ectab) 81 mg PO HS FLOWER Stop: 06/23/22 20:59 Last Admin: 05/24/22 21:50 Dose: 81 mg Documented By: ED Heparin Sodium (Porcine) (Heparin Sod 5,000 Unit/0.5 Ml Vial) 5,000 units SQ Q12 FLOWER Stop: 06/23/22 20:59 Last Admin: 05/24/22 21:50 Dose: 5,000 units Documented By: ED Lactated Ringer's (Lr) 1,000 mls @ 80 mls/hr IV .[id number] FLOWER Stop: 06/23/22 20:57 Last Admin: 05/24/22 21:16 Dose: 80 mls/hr Documented By: ED Insulin Aspart (Insulin Aspart Per Unit) 0 units SC ACHS FLOWER Stop: 06/23/22 20:59 Last Admin: 05/24/22 21:52 Dose: Not Given Documented By: ED Co-signed By: DORCAS Discontinued Medications Sodium Chloride (Nss 1000ml) 1,000 mls @ 999 mls/hr IV .[id number] ONE Stop: 05/24/22 16:48 Last Infusion: 05/24/22 17:31 Dose: 0 mls/hr Documented By: Admin: 05/24/22 15:53 Dose: 999 mls/hr Documented By: MADONNA Magnesium Sulfate/Dextrose (Magnesium Sulfate / D5w) 1 gm in 100 mls @ 100 mls/hr IV NOW STA Stop: 05/24/22 16:47 Last Infusion: 05/24/22 17:31 Dose: 0 mls/hr Documented By: Admin: 05/24/22 15:53 Dose: 100 mls/hr Documented By: MADONNA Sodium Chloride (Nss 1000ml) 500 mls @ 999 mls/hr IV .Q31M ONE Stop: 05/24/22 18:12 Last Infusion: 05/24/22 18:42 Dose: 0 mls/hr Documented By: Admin: 05/24/22 18:07 Dose: 999 mls/hr Documented By: LATISHA Ceftriaxone Sodium (Rocephin) 2,000 mg in 70 mls @ 140 mls/hr IV NOW STA Stop: 05/24/22 18:29 Last Infusion: 05/24/22 20:19 Dose: 0 mls/hr Documented By: Admin: 05/24/22 19:47 Dose: 140 mls/hr Documented By: LATISHA Ondansetron HCl (Ondansetron Inj 2 Mg/Ml 2 Ml Vial) 4 mg IV NOW STA Stop: 05/24/22 15:49 Last Admin: 05/24/22 15:53 Dose: 4 mg Documented By: MADONNA Imaging Data Radiologist's Impression: Chest X-Ray 05/24/22 11:10 XR chest 1V portable CLINICAL HISTORY: weakness COMPARISON STUDY: Chest radiograph April 24, 2022. Chest CT April 21, 2022. FINDINGS: No pneumothorax or pleural effusion is present. Irregular left upper lobe opacity persists. This is either stable or slightly decreased since prior exam. This remains indeterminate. No evidence for pulmonary edema. No new sites of consolidation. IMPRESSION: 1. No acute cardiopulmonary findings. 2. Persistent left upper lobe irregular opacity, either stable or slightly de creased in extent since prior exam. This remains indeterminate. Follow-up PA and lateral chest radiographs in one month are recommended. ACT 112: Negative or not required by law. Electronically signed by: Naveed Paulson M.D. 05/24/2022 11:[address] 05/24/22 15:[address] DOSE: 614.27 mGy.cm HISTORY: fall, confused TECHNIQUE: Multiaxial CT images of the head were performed without the use of intravenous contrast. Automated exposure control was utilized for this study. A dose lowering technique was utilized adhering to the principles of ALARA. Comparison: None. Findings: The paranasal sinuses and mastoid air cells are clear. The calvarium and skull base are intact. There is no mass, hematoma, midline shift, acute infarct. White matter hypodensity is nonspecific but suggestive of microvascular ischemic change. The ventricles and sulci demonstrate mild age-related involutional changes. There is a 3.3 x 1.7 cm arachnoid cyst within the left middle cranial fossa. Impression: No acute intracranial abnormality. ACT 112: Negative or not required by law. Electronically signed by: Lew Sierra M.D. 05/24/2022 6:01 PM Discharge Plan Visit Data Chief Complaint: Weakness Stated Complaint: VERY WEAK, CONFUSED ED Provider: Poli Maldonado Discharge Problem: Weakness, Leukocytosis, ISAAC (acute kidney injury), Acute UTI, Acute hyponatremia, Hypomagnesemia Patient Disposition: Admitted As Inpatient Condition: Fair Discharge Instructions Interventions: ED Discharge Assessment Last Done: 05/24/22 20:32 : Leukocytosis Qualifiers: Leukocytosis type: unspecified Qualified Code(s): D72.829 - Elevated white blood cell count, unspecified
[2022-05-24] MEDS ORDERED: SODIUM CHLORIDE 0.9% 1000ML 500 ML IV ONE (17:42)
[2022-05-24 17:43] LABS: Appearance Urine Turbid (Clear); Bacteria Urine Automated 2+ (Negative); Bilirubin Urine Negative (Negative); Blood Urine 2+ (Negative); Color Urine Yellow; Epithelial Cell Urine Auto >30 /lpf (0-5); Glucose Urine UA Negative (Negative); Ketones Urine Negative (Negative); Leukocyte Esterase Urine 3+ (Negative); Nitrite Urine Negative (Negative); Protein Urine 2+ (Negative); Specific Gravity Urine 1.011 (1.000-1.030); Urobilinogen Urine Negative (Negative); WBC Urine Automated >30 /hpf (0-5)
[2022-05-24] MEDS ORDERED: cefTRIAXone SODIUM 2,000 MG/70 ML BAG IV STA (18:00)
--- NOTE | 2022-05-24 18:02 | CT Scan Report ---
HEAD CT NONCONTRAST CT DOSE: 614.27 mGy.cm HISTORY: fall, confused TECHNIQUE: Multiaxial CT images of the head were performed without the use of intravenous contrast. A utomated exposure control was utilized for this study. A dose lowering technique was utilized adheri ng to the principles of ALARA. Comparison: None. Findings: The paranasal sinuses and mastoid air cells are clear. The calvarium and skull base are int act. There is no mass, hematoma, midline shift, acute infarct. White matter hypodensity is nonspecifi c but suggestive of microvascular ischemic change. The ventricles and sulci demonstrate mild age-rela yao involutional changes. There is a 3.3 x 1.7 cm arachnoid cyst within the left middle cranial fossa . Impression: No acute intracranial abnormality. ACT 112: Negative or not required by law. Electronically signed by: Lew Sierra M.D. 05/24/2022 6:01 PM
--- NOTE | 2022-05-24 18:26 | History & Physical Report ---
Date of Service May 24, 2022 History of Present Illness Primary Care Provider: VINICIO Purdy Allergies Allergy/AdvReac Type Severity Reaction Status Date / Time Sulfa (Sulfonamide Allergy Unknown RASH Verified 04/21/22 15:57 Antibiotics) Home Medications Medication Instructions Recorded Confirmed Type amlodipine 5 mg tablet 5 mg PO HS 06/28/21 04/21/22 History aspirin 81 mg tablet,delayed 81 mg PO HS 06/28/21 04/21/22 History release coenzyme Q10 100 mg capsule 100 mg PO DAILY 06/28/21 04/21/22 History (CoQ-10) furosemide 40 mg tablet 40 mg PO QAM 06/28/21 04/21/22 History losartan 50 mg tablet 50 mg PO QAM 06/28/21 04/21/22 History metformin 500 mg tablet 500 mg PO BID 06/28/21 04/21/22 History metoprolol succinate 100 mg 100 mg PO QAM 06/28/21 04/21/22 History tablet,extended release 24 hr potassium chloride 20 mEq 20 meq PO QAM 06/28/21 04/21/22 History tablet,extended release(part/cryst) (Klor-Con M) vitamin E 670 mg (1,000 unit) 1,000 unit PO DAILY 06/28/21 04/21/22 History capsule atorvastatin 10 mg tablet 10 mg PO DAILY 04/21/22 04/21/22 History Past Med/Surg History Medical History Diabetes History of DVT (deep vein thrombosis) AGE 21'S History of kidney stones HTN (hypertension) Hypercholesteremia Surgical History History of cataract surgery History of cholecystectomy History of colonoscopy History of D&C MULTIPLE History of eye surgery History of hysterectomy History of vein stripping 30 YR AGO Social History Smoking Status: Never smoker Second Hand Exposure: Yes (hx); Hx Alcohol Use: No Hx Substance Use: No Preferred Language: Hungarian Communication Ability: Effective Advertising Sales Agent Required: No Beliefs That Will Affect Care: None Current Living Situation: Alone How many Children do You have: 3 Feels Safe at Home: Yes Assistive Devices: None Results & Data Results & Data ([facility]) Vital Signs (Past 12 Hours) Vital Signs Temp Pulse Pulse Resp BP BP Pulse Ox 05/24/22 15:58 106 H 17 157/75 H 90 05/24/22 11:06 98.1 F 114 H 20 134/75 93 O2 Del Method 05/24/22 15:58 Room Air 05/24/22 11:06 Room Air PG Care Time/CCT Total # of Minutes Spent Total Time Spent with Patient: Total time spent is greater than 50% in coordination of care (as documented) at patient's floor/unit and/or counseling patient: Coding
--- NOTE | 2022-05-24 18:44 | History & Physical Report ---
Date of Service May 24, 2022 Assessment & Plan (1) CAD (coronary artery disease): Plan: Weakness with pneumonia Continue Rocephin PT/OT pending CThead no acute findings CXR: Left upper lobe opacity persisting. No other acute findings. Require serial imaging. Supplemental fluids ordered PT/OT Received fluids in ER, patient feeling subjectively improved but still very weak History of CAD Continue atorvastatin, metoprolol, aspirin No chest pain Hypertension Continue cardiac meds above Continue amlodipine 5 mg p.o. nightly Type II DM Insulin SSI Glucose checks AC/at bedtime Goal BSG 1001 40 DVT prophylaxis: SCDs CODE STATUS: Full code discussed with patient Diet: Type II DM Disposition: Medical/surgical (2) Bilateral pneumonia: (3) Anemia: (4) EVELYN (obstructive sleep apnea): (5) GERD (gastroesophageal reflux disease): (6) HTN (hypertension): (7) Hypercholesteremia: (8) Diabetes: History of Present Illness Primary Care Provider: VINICIO Purdy Beata is an 87-year-old female who presents with 1 week of increasing weakness which has worsened after hospital discharge for pneumonia in the last month. In the last week she has progressively noticed worsening in her weakened, and generally feels very poor. Woke up on the floor unable to get up from the ground, no headache. On ER evaluation continues to have a improving but upper lobe irregularity, otherwise no acute findings. Tues-Weds fevers and chills. Progressive weakness x1 week. Balance has been genearlly poor with global weakness. Ears feel 'full' and were just cleared of cerumen, but did not help. No room spinning, just weakness makes balance difficult. Did not take medications today. Eating/appetite poor. no nausea/vomiting (denies initially) but has one episode of vomiting after she passed out per her daughter. CT-H clear/. Daughter lives a few houses down. No diarrhea/constipatioon. Think she had a fever but is not sure if the temperature. Denies dysuria/urinary symptoms. Think she is peeing normally despite her appetite being poor. Other than her fall and slipped on the floor which she reports is because she was feeling weak and not syncopal/presyncopal she has not lost consciousness Medical History: Reviewed Medications: Reviewed Surgical History: Reviewed Allergies: Reviewed Social History: No tobacco product use, or no etoh use Code Status: Full Code Allergies Allergy/AdvReac Type Severity Reaction Status Date / Time Sulfa (Sulfonamide Allergy Unknown RASH Verified 04/21/22 15:57 Antibiotics) Home Medications Medication Instructions Recorded Confirmed Type amlodipine 5 mg tablet 5 mg PO HS 06/28/21 04/21/22 History aspirin 81 mg tablet,delayed 81 mg PO HS 06/28/21 04/21/22 History release coenzyme Q10 100 mg capsule 100 mg PO DAILY 06/28/21 04/21/22 History (CoQ-10) furosemide 40 mg tablet 40 mg PO QAM 06/28/21 04/21/22 History losartan 50 mg tablet 50 mg PO QAM 06/28/21 04/21/22 History metformin 500 mg tablet 500 mg PO BID 06/28/21 04/21/22 History metoprolol succinate 100 mg 100 mg PO QAM 06/28/21 04/21/22 History tablet,extended release 24 hr potassium chloride 20 mEq 20 meq PO QAM 06/28/21 04/21/22 History tablet,extended release(part/cryst) (Klor-Con M) vitamin E 670 mg (1,000 unit) 1,000 unit PO DAILY 06/28/21 04/21/22 History capsule atorvastatin 10 mg tablet 10 mg PO DAILY 04/21/22 04/21/22 History Past Med/Surg History Medical History Diabetes History of DVT (deep vein thrombosis) AGE 21'S History of kidney stones HTN (hypertension) Hypercholesteremia Surgical History History of cataract surgery History of cholecystectomy History of colonoscopy History of D&C MULTIPLE History of eye surgery History of hysterectomy History of vein stripping 30 YR AGO Social History Smoking Status: Never smoker Second Hand Exposure: Yes (hx); Hx Alcohol Use: No Hx Substance Use: No Preferred Language: Bruneian Communication Ability: Effective Optical Engineering Manager Required: No Beliefs That Will Affect Care: None Current Living Situation: Alone How many Children do You have: 3 Feels Safe at Home: Yes Assistive Devices: None Review of Systems Review of Systems: All systems reviewed & are unremarkable except as noted in Subjective Physical Exam Physical Exam: General: A&Ox3. NAD. Cooperative. HEENT: Atraumatic, normocephalic. Vision/hearing intact. PERLAA. Pulm: CTAB A&P. -wheezes, -rales, -rhonchi. Symmetrical chest rise. No increased work of breathing. No respiratory distress. Cardiac: RRR, -mrg. Radial pulses intact and symmetrical. Abdominal: Nontender, nondistended, soft. BS present. Ext: No trauma/edema Results & Data Results & Data ([facility]) Vital Signs (Past 12 Hours) Vital Signs Temp Pulse Pulse Resp BP BP Pulse Ox 05/24/22 15:58 106 H 17 157/75 H 90 05/24/22 11:06 36.7 C 114 H 20 134/75 93 O2 Del Method 05/24/22 15:58 Room Air 05/24/22 11:06 Room Air Code Status & VTE Plan VTE Prophylaxis Plan VTE Prophylaxis will be ordered: Yes PG Care Time/CCT Total # of Minutes Spent Total Time Spent with Patient: Total time spent is greater than 50% in coordination of care (as documented) at patient's floor/unit and/or counseling patient: Coding Level of Care Code 19840 Initial Inpt Care Lvl 2 Diagnoses CAD (coronary artery disease) I25.10 Bilateral pneumonia J18.9 Anemia D64.9 EVELYN (obstructive sleep apnea) G47.33 GERD (gastroesophageal reflux disease) K21.9 HTN (hypertension) I10 Hypercholesteremia E78.00 Diabetes E11.9
[2022-05-24] MEDS ORDERED: ALUMINUM/MAGNESIUM SUSP 30 ML UDC PO PRN (20:58)
[2022-05-24] MEDS ORDERED: POLYETHYLENE (MIRALAX) 17 GM PACK PO PRN (20:58)
[2022-05-24] MEDS ORDERED: MAGNESIUM HYDROXIDE SUSP 30 ML UDC PO PRN (20:58)
[2022-05-24] MEDS ORDERED: ONDANSETRON INJ 2 MG/ML 2 ML VIAL IV PRN (20:58)
[2022-05-24] MEDS: ACETAMINOPHEN 325 MG TAB PO PRN (21:13)
[2022-05-24] MEDS: LACTATED RINGER'S 1,000 ML IV SCH (21:16)
[2022-05-24] MEDS: HEPARIN SOD 5,000 UNIT/0.5 ML VIAL SQ SCH (21:50)
[2022-05-24] MEDS: ASPIRIN 81 MG ECTAB PO SCH (21:50)
[2022-05-24] MEDS: amLODIPine BESYLATE 5 MG TAB PO SCH (21:50)
[2022-05-24] MEDS: INSULIN ASPART PER UNIT SC SCH (21:52)
--- NOTE | 2022-05-25 05:59 | Electrocardiogram Report ---
Test Reason : Blood Pressure : / mmHG Vent. Rate : 102 BPM Atrial Rate : 102 BPM P-R Int : 144 ms QRS Dur : 084 ms QT Int : 332 ms P-R-T Axes : 053 -03 041 degrees QTc Int : 432 ms Sinus tachycardia Possible Inferior infarct (cited on or before 22-APR-2022) Possible Anterior infarct , age undetermined Abnormal ECG When compared with ECG of 22-APR-2022 06:22, Premature ventricular complexes are no longer Present Confirmed by Khurram Patricia ([id number]) on 05/25/2022 5:59:28 AM Referred By: Confirmed By:Khurram Patricia
[2022-05-25] MEDS: ACETAMINOPHEN 325 MG TAB PO PRN ×2 (06:15→13:02)
[2022-05-25] MEDS: ATORVASTATIN 10 MG TAB PO SCH (08:30)
[2022-05-25] MEDS: METOPROLOL SUCC 50MG EXT REL TAB PO SCH (08:30)
[2022-05-25] MEDS: HEPARIN SOD 5,000 UNIT/0.5 ML VIAL SQ SCH ×2 (08:30→20:00)
[2022-05-25] MEDS: LACTATED RINGER'S 1,000 ML IV SCH ×2 (08:32→20:01)
[2022-05-25] MEDS: INSULIN ASPART PER UNIT SC SCH ×4 (08:54→21:08)
[2022-05-25] MEDS ORDERED: NON-FORMULARY MEDICATION (Coenzyme Q10 [Coq-10] 100 mg Capsule) PO SCH (09:00)
[2022-05-25 09:52] LABS: Basophils # (auto) 0.02 K/uL (0-0.2); Basophils % (auto) 0.2 %; Eosinophils # (auto) 0.01 K/uL (0-0.50); Eosinophils % (auto) 0.1 %; Hematocrit (blood only) 29.4 % (34.1-44.9); Hemoglobin 9.4 g/dl (12.0-16.0); Immature Granulocytes # (auto) 0.05 K/uL (0.00-0.02); Immature Granulocytes % (auto) 0.5 %; Lymphocytes # (auto) 0.92 K/uL (1.2-3.4); Lymphocytes % (auto) 9.1 %; Mean Corpuscular Hemoglobin 27.9 pg (25.0-34.0); Mean Corpuscular Volume 87.2 fL (80.0-100.0); Mean Platelet Volume 11.1 fL (9.4-12.3); Monocytes # (auto) 0.63 K/uL (0.24-0.82); Monocytes % (auto) 6.2 %; Neutrophils # (auto) 8.52 K/uL (1.4-6.5); Neutrophils % (auto) 83.9 %; Platelet Count 130 K/uL (130-400); RDW Coefficient of Variation 14.7 % (11.5-14.5); RDW Standard Deviation 47.5 fL (36.4-46.3); Red Blood Count 3.37 M/uL (3.93-5.22); White Blood Count 10.15 K/ul (4.8-10.8)
[2022-05-25 10:26] LABS: Calcium 8.6 mg/dl (8.5-10.1); Creatinine Clr Calc Pharmacy 29.9 ml/min; Est GFR (African American) 42.6 ml/min; Est GFR (Non-African American) 36.8 ml/min; Potassium 3.6 mmol/L (3.5-5.1)
--- NOTE | 2022-05-25 10:46 | Hospitalist Progress Note ---
Date of Service May 25, 2022 Assessment & Plan (1) CAD (coronary artery disease): Plan: Acute weakness, fever 2/2 UTI UA infected appearing on admission, 3+ leukocyte esterase, 2+ bacteria, urine culture pending - Febrile overnight to 38, fever curve downtrending on Abx and with APAP Covered with Rocephin as above GC pulmonary positive for GNB - US Renal pending for ?pyelo to assist in abx duration determination - BC pending - Tachycardic overnight, HR 80s on bedside assessment - Continue LR supplementation, PO improving. D/c after +1L Weakness with ?pneumonia Continue Rocephin as above - Recovering from PNA several weeks ago, overall pulm symptoms improving with some residual cough. As long as continues to improve with UTI tx will continue rocephin/cefdinir tx. if worsening -> expand to anaerobe/pseudomonal coverage PT/OT pending CThead no acute findings CXR: Left upper lobe opacity persisting. No other acute findings. Require serial imaging. Supplemental fluids ordered PT/OT Received fluids in ER, patient feeling subjectively improved but still very weak Anemia - 9.4 hgb today ?reconstitution - No acute drop, normocytic - Trend ISAAC - Admitting Cr 1.53, baseline <1 - Likely prerenal with poor PO intake, UTI - Downtrending to 1.31 today, not yet normalized - Renally dose to CrCl ~30 Ambulatory dysfunction Patient has notable difficulty with generalized weakness and balance limiting her ability to perform ADLs/IADLs at home Is likely acutely weak with acute UTI, and recovering from prior pneumonia but would benefit from PT/OT PT/OT pending, follow for placement recommendations History of CAD Continue atorvastatin, metoprolol, aspirin No chest pain Hypertension Continue cardiac meds above Continue amlodipine 5 mg p.o. nightly Type II DM Insulin SSI Glucose checks AC/at bedtime Goal BSG [id number] - BSG 130-202 today DVT prophylaxis: SCDs CODE STATUS: Full code discussed with patient Diet: Type II DM Disposition: Medical/surgical (2) Bilateral pneumonia: (3) Anemia: (4) EVELYN (obstructive sleep apnea): (5) GERD (gastroesophageal reflux disease): (6) HTN (hypertension): (7) Hypercholesteremia: (8) Diabetes: Admission and Anticipated Discharge Date Admission Date: May 24, 2022 Subjective Seen at bedside this morning. Feels stronger, and about 50% back to normal. Fevers/chills lat night, none this morning. intermittent nonproductive cough persists. No shortnes of breath, chest pain, chest pressure, palpitations. no lightheadedness/dizziness/nausea/vomiting/diarrhea this AM. [place] stronger walking to bathroom with assistance today, but still well below baseline. no dysuria, urinary frequency, or flank pain. Review of Systems Review of Systems: All systems reviewed & are unremarkable except as noted in Subjective Physical Exam Physical Exam: General: A&Ox3. NAD. Cooperative. HEENT: Atraumatic, normocephalic. Vision/hearing intact. PERLAA. Pulm: CTAB A&P. -wheezes, -rales, -rhonchi. Symmetrical chest rise. No increased work of breathing. No respiratory distress. Cardiac: RRR, -mrg. Radial pulses intact and symmetrical. Abdominal: Nontender, nondistended, soft. BS present. Ext: No trauma/edema Results & Data Results & Data ([facility]) Vital Signs (Past 12 Hours) Vital Signs Temp Pulse Pulse Resp BP Pulse Ox O2 Del Method 05/25/22 08:37 Nasal Cannula 05/25/22 08:29 37.1 C 05/25/22 02:30 36.6 C 05/25/22 06:18 39.4 C H 107 H 18 154/70 H 97 Nasal Cannula 05/25/22 03:17 90 20 94 05/24/22 23:45 90 19 96 O2 Flow Rate 05/25/22 08:37 2 05/25/22 08:29 05/25/22 02:30 05/25/22 06:18 2 05/25/22 03:17 3 05/24/22 23:45 3 PG Care Time/CCT Total # of Minutes Spent Total Time Spent with Patient: Total time spent is greater than 50% in coordination of care (as documented) at patient's floor/unit and/or counseling patient: Coding Level of Care Code 12305 Subseq Hosp Care Lvl 2 Diagnoses CAD (coronary artery disease) I25.10 Bilateral pneumonia J18.9 Anemia D64.9 EVELYN (obstructive sleep apnea) G47.33 GERD (gastroesophageal reflux disease) K21.9 HTN (hypertension) I10 Hypercholesteremia E78.00 Diabetes E11.9
--- NOTE | 2022-05-25 12:47 | Ultrasound Report ---
US renal/blad retro comp CLINICAL HISTORY: ?pyelo TECHNIQUE: Multiple sonographic real-time images of the kidneys and bladder were obtained. COMPARISON: Comparison is made to CT abdomen pelvis 01/11/2016 FINDINGS: The right kidney measures 12.4 cm in length, and the left kidney measures 10.5 cm in length. The right kidney is normal in size, contour, cortical thickness, and echogenicity. No hydronephrosis is identified. No renal lesion is identified. No perinephric fluid collection is seen. The kidney is lobular in appearance but otherwise normal. No hydronephrosis is identified. No renal lesion is identified. No perinephric fluid collection is seen. The bladder is partially distended. No large intraluminal mass is seen. IMPRESSION: No hydronephrosis is seen. Of note, ultrasound is not a sensitive modality for pyelonephritis. ACT 112: Negative or not required by law. Electronically signed by: Fuad Alanis M.D. 05/25/2022 12:45 PM
[2022-05-25 14:13] LABS: Ferritin 144.6 ng/ml (8-388)
[2022-05-25] MEDS: ASPIRIN 81 MG ECTAB PO SCH (20:01)
[2022-05-25] MEDS: amLODIPine BESYLATE 5 MG TAB PO SCH (20:01)
[2022-05-25] MEDS: cefTRIAXone SODIUM 2,000 MG in DEXTROSE 5% 50 ML IV SCH (20:40)
[2022-05-26 07:45] LABS: Basophils # (auto) 0.02 K/uL (0-0.2); Basophils % (auto) 0.3 %; Eosinophils # (auto) 0.09 K/uL (0-0.50); Eosinophils % (auto) 1.2 %; Hematocrit (blood only) 30.1 % (34.1-44.9); Hemoglobin 9.5 g/dl (12.0-16.0); Immature Granulocytes # (auto) 0.04 K/uL (0.00-0.02); Immature Granulocytes % (auto) 0.5 %; Lymphocytes % (auto) 10.6 %; Mean Corpuscular Hemoglobin 28.1 pg (25.0-34.0); Mean Corpuscular Hgb Conc 31.6 g/dL (32.0-36.0); Mean Corpuscular Volume 89.1 fL (80.0-100.0); Mean Platelet Volume 10.9 fL (9.4-12.3); Monocytes # (auto) 0.61 K/uL (0.24-0.82); Monocytes % (auto) 8.1 %; Neutrophils # (auto) 6.01 K/uL (1.4-6.5); Neutrophils % (auto) 79.3 %; Platelet Count 120 K/uL (130-400); RDW Coefficient of Variation 14.6 % (11.5-14.5); RDW Standard Deviation 47.4 fL (36.4-46.3); Red Blood Count 3.38 M/uL (3.93-5.22); White Blood Count 7.57 K/ul (4.8-10.8)
[2022-05-26] MEDS: LACTATED RINGER'S 1,000 ML IV SCH ×2 (07:56→20:21)
[2022-05-26 08:05] LABS: BUN Creatinine Ratio 13.2 (10-20); Calcium 8.8 mg/dl (8.5-10.1); Creatinine Clr Calc Pharmacy 34.3 ml/min; Est GFR (African American) 50.4 ml/min; Est GFR (Non-African American) 43.5 ml/min; Potassium 3.7 mmol/L (3.5-5.1)
[2022-05-26] MEDS: METOPROLOL SUCC 50MG EXT REL TAB PO SCH (08:18)
[2022-05-26] MEDS: ATORVASTATIN 10 MG TAB PO SCH (08:18)
[2022-05-26] MEDS: PANTOprazole 40 MG TAB PO SCH (08:19)
[2022-05-26] MEDS: HEPARIN SOD 5,000 UNIT/0.5 ML VIAL SQ SCH ×2 (08:19→20:29)
[2022-05-26] MEDS: INSULIN ASPART PER UNIT SC SCH ×4 (09:20→20:31)
--- NOTE | 2022-05-26 15:40 | Hospitalist Progress Note ---
Date of Service May 26, 2022 Assessment & Plan (1) CAD (coronary artery disease): Plan: Acute weakness, feverdue to infection, UTI versus pneumoniafortunately improving. UA infected appearing on admission, 3+ leukocyte esterase, 2+ bacteria, urine culture pending - macias S E coli. Getting better on Rocephin. Fever curve improving. Once 24 hours fever freeanticipate home on p.o. cefdinir Weakness with ?pneumonia See above, fortunately PT/OT appears that she is safe for home. Anemia -Overall stable ISAAC -Due to dehydrationimproved Ambulatory dysfunction Lives at home/independently. She would like to return to home. Fortunately PT/OT would support this. History of CAD Continue atorvastatin, metoprolol, aspirin No chest pain Hypertension Continue cardiac meds above Continue amlodipine 5 mg p.o. nightly Type II DM Sugars have overall been acceptablecontinue current insulin management. DVT prophylaxis: SCDs CODE STATUS: Full code discussed with patient by prior hospitalist Diet: Type II DM Disposition: Stable on medical, anticipate home on oral antibiotics, possibly with home healthonce 24 hours fever free (2) Bilateral pneumonia: (3) Anemia: (4) EVELYN (obstructive sleep apnea): (5) GERD (gastroesophageal reflux disease): (6) HTN (hypertension): (7) Hypercholesteremia: (8) Diabetes: Admission and Anticipated Discharge Date Admission Date: May 24, 2022 Results & Data Results & Data ([facility]) Vital Signs (Past 12 Hours) Vital Signs Temp Pulse Pulse Resp BP Pulse Ox O2 Del Method 05/26/22 07:30 98.2 F 70 20 119/63 98 Room Air 05/26/22 05:42 98.4 F 71 17 124/61 94 Nasal Cannula O2 Flow Rate 05/26/22 07:30 05/26/22 05:42 2 PG Care Time/CCT Total # of Minutes Spent Total Time Spent with Patient: Total time spent is greater than 50% in coordination of care (as documented) at patient's floor/unit and/or counseling patient: Coding Level of Care Code 34954 Subseq Hosp Care Lvl 3 Diagnoses CAD (coronary artery disease) I25.10 Bilateral pneumonia J18.9 Anemia D64.9 EVELYN (obstructive sleep apnea) G47.33 GERD (gastroesophageal reflux disease) K21.9 HTN (hypertension) I10 Hypercholesteremia E78.00 Diabetes E11.9
[2022-05-26] MEDS: cefTRIAXone SODIUM 2,000 MG in DEXTROSE 5% 50 ML IV SCH (20:21)
[2022-05-26] MEDS: ASPIRIN 81 MG ECTAB PO SCH (20:29)
[2022-05-26] MEDS: amLODIPine BESYLATE 5 MG TAB PO SCH (20:29)
[2022-05-26] MEDS: ACETAMINOPHEN 325 MG TAB PO PRN ×2 (20:41)
[2022-05-27] MEDS: ATORVASTATIN 10 MG TAB PO SCH (08:59)
[2022-05-27] MEDS: PANTOprazole 40 MG TAB PO SCH (08:59)
[2022-05-27] MEDS: METOPROLOL SUCC 50MG EXT REL TAB PO SCH (08:59)
[2022-05-27] MEDS: HEPARIN SOD 5,000 UNIT/0.5 ML VIAL SQ SCH (09:00)
[2022-05-27] MEDS: INSULIN ASPART PER UNIT SC SCH ×2 (09:03→13:40)
[2022-05-27] MEDS: LACTATED RINGER'S 1,000 ML IV SCH (09:05)
[2022-05-27 09:36] LABS: Basophils # (auto) 0.02 K/uL (0-0.2); Basophils % (auto) 0.3 %; Eosinophils # (auto) 0.12 K/uL (0-0.50); Hematocrit (blood only) 32.8 % (34.1-44.9); Hemoglobin 10.3 g/dl (12.0-16.0); Immature Granulocytes # (auto) 0.05 K/uL (0.00-0.02); Immature Granulocytes % (auto) 0.8 %; Lymphocytes # (auto) 0.95 K/uL (1.2-3.4); Lymphocytes % (auto) 15.9 %; Mean Corpuscular Hemoglobin 27.7 pg (25.0-34.0); Mean Corpuscular Hgb Conc 31.4 g/dL (32.0-36.0); Mean Corpuscular Volume 88.2 fL (80.0-100.0); Mean Platelet Volume 10.8 fL (9.4-12.3); Monocytes # (auto) 0.41 K/uL (0.24-0.82); Monocytes % (auto) 6.9 %; Neutrophils # (auto) 4.41 K/uL (1.4-6.5); Neutrophils % (auto) 74.1 %; Platelet Count 159 K/uL (130-400); RDW Coefficient of Variation 14.5 % (11.5-14.5); RDW Standard Deviation 46.6 fL (36.4-46.3); Red Blood Count 3.72 M/uL (3.93-5.22); White Blood Count 5.96 K/ul (4.8-10.8)
[2022-05-27 09:58] LABS: Creatinine Clr Calc Pharmacy 35.5 ml/min; Est GFR (African American) 52.6 ml/min; Est GFR (Non-African American) 45.4 ml/min; Potassium 3.6 mmol/L (3.5-5.1)
[2022-05-27] MEDS ORDERED: Nursing to Pharmacy Communication SCH (10:30)
[2022-05-27] MEDS ORDERED: cefTRIAXone SODIUM 2,000 MG in DEXTROSE 5% 50 ML IV ONE (13:00)
[2022-05-27] MEDS: cefTRIAXone SODIUM 2,000 MG in DEXTROSE 5% 50 ML IV SCH ×2 (13:42→13:43)
--- NOTE | 2022-05-27 18:33 | Discharge Summary ---
Date of Service May 27, 2022 Admission HPI Per Admitting Provider Beata is an 87-year-old female who presents with 1 week of increasing weakness which has worsened after hospital discharge for pneumonia in the last month. In the last week she has progressively noticed worsening in her weakened, and generally feels very poor. Woke up on the floor unable to get up from the ground, no headache. On ER evaluation continues to have a improving but upper lobe irregularity, otherwise no acute findings. Tues-Weds fevers and chills. Progressive weakness x1 week. Balance has been genearlly poor with global weakness. Ears feel 'full' and were just cleared of cerumen, but did not help. No room spinning, just weakness makes balance difficult. Did not take medications today. Eating/appetite poor. no nausea/vomiting (denies initially) but has one episode of vomiting after she pa ssed out per her daughter. CT-H clear/. Daughter lives a few houses down. No diarrhea/constipatioon. Think she had a fever but is not sure if the temperature. Denies dysuria/urinary symptoms. Think she is peeing normally despite her appetite being poor. Other than her fall and slipped on the floor which she reports is because she was feeling weak and not syncopal/presyncopal she has not lost consciousness Medical History: Reviewed Medications: Reviewed Surgical History: Reviewed Allergies: Reviewed Social History: No tobacco product use, or no etoh use Code Status: Full Code Principal Diagnosis Febrile illness, dehydration, weaknessall improving. Discharge Exam In general she is awake alert oriented pleasant no distress. HEENT normocephalic atraumatic mucous membranes moist. Cardio regular no rubs murmurs or gallops. Lungs clear to auscultation bilaterally no rales rhonchi wheeze with good effort. Abdomen is soft nondistended nontender no masses organomegaly. Skin without rashes, pallor, icterus. Neuro without focal deficits. Discharge Data Allergies Allergy/AdvReac Type Severity Reaction Status Date / Time Sulfa (Sulfonamide Allergy Unknown RASH Verified 05/24/22 19:59 Antibiotics) scallops Allergy Unknown Unverified 05/24/22 19:59 Consultations 05/24/22 18:28 ED Decision to Admit Stat Ordered Studies 05/24/22 15:48 CT head/brain wo con Stat 05/25/22 10:44 US Renal Bladder [US renal/blad retro comp] Routine Hospital Course (1) CAD (coronary artery disease): Acute weakness, feverdue to infection, UTI versus pneumoniafortunately improving. UA infected appearing on admission, 3+ leukocyte esterase, 2+ bacteria, urine culture pending - macias S E coli. Getting better on Rocephin. Fever curve improving. Appears quite stable for home on p.o. cefdinir. Discussed the strong possibility of an improving, but still present, fever curveand asked that she follow it at home. Follow-up with PCP in 2 to 3 days. Weakness due to above See above, fortunately PT/OT appears that she is safe for home. Anemia -Overall stable ISAAC -Due to dehydrationimproved Ambulatory dysfunction Lives at home/independently. She would like to return to home. Fortunately PT/OT would support this. History of CAD Continue atorvastatin, metoprolol, aspirin No chest pain Hypertension Continue cardiac meds above Continue amlodipine 5 mg p.o. nightly Type II DM Sugars have overall been acceptable. DVT prophylaxis: SCDs CODE STATUS: Full code discussed with patient by prior hospitalist Diet: Type II DM Disposition: Stable for home, p.o. antibiotics, PCP follow-up in 2 to 3 days Total Time Total Time Spent Total Time Spent (In Minutes): <30 Discharge Plan Discharge Items Patient Disposition: Home - Self-Care Reason For Visit: UTI, DEHYDRATION Discharge Diagnosis: weakness, dehydration, infection (see below) Condition on Discharge: Fair Activity: Resume your previous activity Non-emergency contact: Primary Care Provider Call non-emergency contact if: you have any medication questions and your symptoms worsen Follow-up/Referrals: Willow Magaña CRNP [Primary Care Provider] - Diet: Regular Addtl Attending Provider Instructions: Weakness, fever -As we discussed, generally speaking what happened to get you a week and landed on the hospital was a picked up an infection. When we get an infection, it is almost like your metabolism is having to run on overdriveso to that end, it is very common for people to get dehydrated and weak from that. Fortunately everything is getting better daily. -As is the case a reasonable percentage of the time, it actually was not abundantly clear whether the infection was urinary tract infection (corroborating that would be a positive urine culture, but given that you had no urinary symptoms that is reasonably doubtful), or a small pneumonia (nothing like the bilateral pneumonia you had beforebut your chest x-ray did look a little hazy compatible with a mild pneumoniagiven that this can give more nonspecific symptoms, I would favor mild pneumonia over urinary tract infect ion), but either way things are improving. We have been treating it with an antibiotic called ceftriaxonewhich actually does provide good coverage for both possible infections. We have given you a dose todayso while we will be sending you home with a prescription for oral antibiotics (cefdinir 300 mg twice a day for another week), you will need to start that until tomorrow. -While you are definitely looking well enough to get home, of course your story is still "a work in progress". As we discussed, it is very frequent whenever somebody has had an infection causing fevers for their fevers to go away somewhat slowlywe are seeing that with your pattern. It is very common for people to spike fevers once a day or so, as has been the case with makaylabut fortunately each day her temperature has generally shown a trend towards improvement. Your highest temperature in the last 24 hours was 100.2. Like we discussed, it would not surprise me if you have another few days of gradually improving temperatures, but things should not get worse. Follow how you are feeling overall, and follow your temperature if you have a feeling of being feverish and the sweats like you had. -I definitely would like you seen in follow-up in the office around Saturday or Saturday. Ideally this would be with Kelli since she knows you best, however, if she is completely booked [facility] family medicine would almost certainly be able to get you in with one of our resident physicians in that timeframe. The whole point of the follow-up visit is to make sure that you are feeling and looking better (which I anticipate will be the case), but if you are still showing any type of fever by Saturday or Saturday, revisiting the situation/rerunning a work-up/possibly adjusting antibiotic coverage. To do: -Take the antibiotic (cefdinir) 300 mg twice a day starting tomorrow morning -Pay attention to how you are feeling, and if you have a feeling of being feverish or sweatstry to take your temperature so that we can record the trend -Follow-up in the office Saturday/Saturday -Make sure you are getting enough to drink (a minimum of 60 ounces would be reasonable), and try to make sure you are eating enough in spite of your appetite being a bit off. Pending Studies at Discharge: No Stand-Alone Forms: [facility], Smoking Cessation Medications and DC Order Prescriptions: New cefdinir 300 mg capsule 300 mg PO BID 7 Days Qty: 14 0RF Continued furosemide 40 mg Tablet 40 mg PO QAM vitamin E 1,000 unit Capsule 1,000 unit PO DAILY metformin 500 mg Tablet 500 mg PO BID metoprolol succinate 100 mg Tablet Extended Release 24 Hr 100 mg PO QAM amlodipine 5 mg Tablet 5 mg PO HS aspirin 81 mg Tablet,Delayed Release (Dr/Ec) 81 mg PO HS potassium chloride [Klor-Con M20] 20 mEq Tablet,Er Particles/Crystals 20 meq PO QAM coenzyme Q10 [CoQ-10] 100 mg Capsule 100 mg PO DAILY losartan 50 mg Tablet 50 mg PO QAM atorvastatin 10 mg tablet 10 mg PO DAILY pantoprazole 40 mg tablet,delayed release (DR/EC) 40 mg PO DAILY Discharge Orders: Discharge Order (Routine); Ordered 05/27/22 Ordered By: Sonny Huddleston Admission Data Admit Date/Time: 05/24/22 18:34 Attending Provider: Sonny Huddleston Admit Provider: Sonny Huddleston Primary Care Provider: Willow Magaña Other Providers: Sonny Huddleston ; [facility] Other Interventions: Discharge Summary Assessment (RN) Last Done: 05/27/22 12:14 Coding Level of Care Code D/C DAY MANAGEMENT <30 MINS Diagnoses CAD (coronary artery disease) I25.10
== END 2022-05-27 15:19 | disposition home health service (06) | DRG 689 ==
LOC: ED 10:33 → 3N 18:34

== ENCOUNTER 2022-12-05 17:51 | Inpatient (IN) ==
--- NOTE | 2022-12-05 18:04 | Emergency Department Note ---
Impression & Plan Acute dehydration, Fever, COVID-19, ST segment changes on electrocardiogram, Elevated troponin I level ED Provider Note NAME: PARK ALCOCER AGE: 87 SEX: F : 1935 ARRIVES VIA: Walk-In INFORMANT: Patient, ED PROVIDER(S): Federico Donohue MD CHIEF COMPLAINT: Fever MEDICAL DECISION MAKING: Patient presents due to concern for cough and fever in the setting of radiation treatment. Sepsis protocols were initiated. The patient is on diuretics so only 1 L of IV fluids was initially ordered. The patient did have empiric Rocephin ordered in addition to blood cultures and a procalcitonin. IV was established and blood w ork was obtained. The patient's blood work shows a Normal white count H&H and platelet count. The patient's kidney function is unremarkable. BSG 157. Troponin of 16. The patient does have some ST changes in the lateral leads but no evidence of acute STEMI. The patient denies any chest pains or shortness of breath. May be demand related given the patient's illness. Bio fire is positive for COVID-19. The patient does not have a current oxygen requirement. Given the patient's COVID illness fever ST changes and positive troponin believe the patient would benefit from admission. Given the patient's lack of chest pain and shortness of breath do not believe the patient requires heparin or Outsole Skiver activation at this time. I did speak with the on-call hospitalist service Dr. Ayala patient was admitted. The patient did have a fever. Patient was ordered p.o. Tylenol in addition to Tessalon Perles and albuterol treatment. The patient was also ordered 500 additional IV fluids. Prior /Outside records reviewed: None Differential diagnosis: Infection, dehydration, metabolic abnormality, hypo/hyperglycemia, electrolyte disturbance, anemia, hypoxia, as well as other etiologies were considered Diagnostics, as interpreted by me: ECG: Normal sinus rhythm, rate [address] normal axis [address] depressions in the lateral leads. ST changes are new from comparison EKG May 24, 2022. Cardiac monitoring: An order was placed for continuous cardiac monitoring. The monitor shows a rate of 92 with sinus rhythm. Patient was placed on pulse oximetry Medical decision rules: none Imaging studies: See below HPI: Patient presents due to concern for feeling unwell beginning this morning and noted to have a fever 105. The patient's family did present and noted her to be with a temperature of 105 administered some Tylenol and got her shower and this seemed improved to 101 but it was around 103 with a at the time of the left to present to the emergency department. The patient does have a known history of a left-sided chest mass and did receive 5 days of radiation treatment completed on Saturday. Patient has had cough but it is nonproductive. Patient has had decreased p.o. intake. No chest pains or shortness of breath. No nausea vomiting or diarrhea. Patient denies any issues with defecation or urination. PAST MEDICAL HISTORY: See Below PAST SURGICAL HISTORY: See Below SOCIAL HISTORY: See Below HOME MEDICATIONS: See Below ALLERGIES: See Below VITALS: See Below PHYSICAL EXAMINATION: GENERAL: NAD, wearing a mask, non-toxic. EYE EXAM: Normal conjunctiva. PERRL, no anisocoria and EOM's grossly intact w/o pain. NECK: Supple, no nuchal rigidity, no adenopathy, non-tender. No signs of meningismus. FROM of the neck with good chin to chest and neck extension. No stridor. LUNGS: Clear to auscultation. Normal chest wall mechanics. HEART: NSR, no MRG. ABDOMEN: Abdomen soft, non-tender, no masses, no rebound or guarding. BACK: No CVA TTP. SKIN: No rashes and no bruising. UPPER EXTREMITIES: Upper extremities are grossly normal. LOWER EXTREMITIES: Grossly normal, no edema. NEURO EXAM: A&O x3, cranial nerves II-XII grossly intact, normal speech, moves all 4 extremities. Past Med/Surg History Medical History Abnormal PET of left lung Aspiration pneumonia Bilateral pneumonia 04/2022--per pt since this diagnosis she uses oxygen 2L at night through CPAP CAD (coronary artery disease) Diabetes NIDDM Discoid lupus GERD (gastroesophageal reflux disease) Hiatal hernia History of DVT (deep vein thrombosis) LE- AGE 20'S History of kidney stones HTN (hypertension) Hypercholesteremia Sleep apnea CPAP with 2L oxygen Surgical History History of cataract surgery History of cholecystectomy History of colonoscopy History of D&C MULTIPLE History of eye surgery History of hysterectomy History of vein stripping 30 YR AGO Family History Other No family history of adverse response to anesthesia Social History Smoking Status: Never smoker Second Hand Exposure: No; Hx Alcohol Use: No Hx Substance Use: No Preferred Language: Swedish Communication Ability: Effective Motel Clerk Required: No Beliefs That Will Affect Care: None Current Living Situation: Alone How many Children do You have: 3 Feels Safe at Home: Yes during the past year weight has: remained stable Assistive Devices: CPAP, Denture - Upper and Glasses Allergies Allergies Allergy/AdvReac Type Severity Reaction Status Date / Time Sulfa (Sulfonamide Allergy Intermediate RASH Verified 12/05/22 19:08 Antibiotics) scallops AdvReac Intermediate "awful Verified 12/05/22 19:08 sick, threw up" Home Meds Home Medications Medication Instructions Recorded Confirmed amlodipine 5 mg tablet 5 mg PO HS 06/28/21 12/05/22 aspirin 81 mg tablet,delayed 81 mg PO HS 06/28/21 12/05/22 release coenzyme Q10 100 mg capsule 100 mg PO Q OTHER DAY 06/28/21 12/05/22 (CoQ-10) furosemide 40 mg tablet 40 mg PO QAM 06/28/21 12/05/22 losartan 50 mg tablet 50 mg PO QAM 06/28/21 12/05/22 metformin 500 mg tablet 500 mg PO BID 06/28/21 12/05/22 metoprolol succinate 100 mg 100 mg PO QAM 06/28/21 12/05/22 tablet,extended release 24 hr potassium chloride 20 mEq 20 meq PO BID 06/28/21 12/05/22 tablet,extended release(part/cryst) (Klor-Con M) vitamin E 670 mg (1,000 unit) 1,000 unit PO QAM 06/28/21 12/05/22 capsule atorvastatin 10 mg tablet 10 mg PO QAM 04/21/22 12/05/22 pantoprazole 40 mg tablet,delayed 40 mg PO QAM 05/24/22 12/05/22 release Results & Data (ED) Vital Signs Vital Signs - 24 hr 12/05/22 17:56 12/05/22 19:05 12/05/22 19:13 Temperature 37.6 C H Temperature Source Skin Pulse Rate 96 H 96 H Pulse Rate [Finger] 73 Pulse Rhythm Regular Pulse Rhythm [Finger] Regular Pulse Strength Normal Pulse Strength [Finger] Normal Respiratory Rate 20 18 Respiratory Effort / Characteristics Non-Labored Spontaneous Non-Labored Respiratory Depth Normal Normal Respiratory Pattern Regular Blood Pressure 159/83 H Blood Pressure [Right Arm] 159/95 H Blood Pressure Mean 108 Blood Pressure Mean [Right Arm] 116 Blood Pressure Position [Right Arm] Sitting Pulse Oximetry 93 95 Oxygen Delivery Method Room Air Sepsis Recent Fever Within 48 Hours No Sepsis New/Unexplained Change in Mental Status N/A Sepsis Action Taken by Nursing No Action Required 12/05/22 21:07 Temperature 39.0 C H Temperature Source Oral Pulse Rate Pulse Rate [Finger] 90 Pulse Rhythm Pulse Rhythm [Finger] Pulse Strength Pulse Strength [Finger] Respiratory Rate 18 Respiratory Effort / Characteristics Respiratory Depth Respiratory Pattern Blood Pressure Blood Pressure [Right Arm] 161/69 H Blood Pressure Mean Blood Pressure Mean [Right Arm] 99 Blood Pressure Position [Right Arm] Pulse Oximetry 93 Oxygen Delivery Method Room Air Sepsis Recent Fever Within 48 Hours Sepsis New/Unexplained Change in Mental Status Sepsis Action Taken by Assisted Medications Current Medication List: was personally reviewed by me Laboratory Data Attestation: I reviewed the patient's lab results. 12/05/22 18:42 12/05/22 18:42 Lab Results 12/05/22 12/05/22 12/05/22 Range/Units 18:42 18:42 18:42 WBC 7.56 (4.8-10.8) K/ul RBC 4.46 (4.20-5.40) M/uL Hgb 12.4 (12.0-16.0) g/dl Hct 38.4 (37.0-47.0) % MCV 86.1 (80.0-100.0) fL MCH 27.8 (25.0-34.0) pg MCHC 32.3 (32.0-36.0) g/dL RDW Std Deviation 47.0 H (36.4-46.3) fL RDW Coeff of Isa 15.1 H (11.5-14.5) % Plt Count 142 (130-400) K/uL MPV 10.8 (9.4-12.4) fL Immature Gran % (Auto) 0.5 % Neut % (Auto) 86.2 % Lymph % (Auto) 6.2 % [place] % (Auto) 6.6 % Eos % (Auto) 0.4 % Baso % (Auto) 0.1 % Neut # (Auto) 6.51 H (1.40-6.50) K/uL Lymph # (Auto) 0.47 L (1.2-3.4) K/uL [place] # (Auto) 0.50 (0.11-0.59) K/uL Eos # (Auto) 0.03 (0-0.50) K/uL Baso # (Auto) 0.01 (0-0.2) K/uL Immature Gran # (Auto) 0.04 (0.01-0.20) K/uL Sodium 136 (136-145) mmol/L Potassium 3.6 (3.5-5.1) mmol/L Chloride 102 (98-107) mmol/L Carbon Dioxide 26 (21-32) mmol/L Anion Gap 8 (3-11) BUN 11 (6-23) mg/dl Creatinine 1.11 (0.6-1.2) mg/dl Est Cr Clr Drug Dosing 36.1 ml/min Est GFR ( Amer) 52.1 ml/min Est GFR (Non-Af Amer) 44.9 ml/min BUN/Creatinine Ratio 9.9 L (10-20) Glucose 157 H (70-99(Fasting)) mg/dl Lactate 1.5 (0.4-2.0) mmol/L Calcium 9.5 (8.6-10.3) mg/dl Magnesium 1.7 (1.7-2.4) mg/dl Total Bilirubin 0.8 (0.2-1.0) mg/dl Direct Bilirubin 0.1 (0-0.2) mg/dl AST 20 (13-39) U/L ALT 15 (7-52) U/L Alkaline Phosphatase 49 (34-104) U/L Troponin I High Sens 16.3 H (0-14) pg/ml Total Protein 7.6 (6.0-8.3) gm/dl Albumin 3.8 (3.4-5.0) gm/dl Procalcitonin (0-0.5) ng/ml Adenovirus (PCR) (NotDetected) B. pertussis DNA (PCR) (NotDetected) B.parapertussis DNA PCR (NotDetected) C. pneumoniae DNA (PCR) (NotDetected) Coronavirus OC43 (PCR) (NotDetected) Coronavirus HKU1 (PCR) (NotDetected) Coronavirus 229E (PCR) (NotDetected) SARS-CoV-2 (PCR) (NotDetected) Coronavirus NL63 (PCR) (NotDetected) Human Metapneumovir PCR (NotDetected) Influenza Type A (PCR) (NotDetected) Influenza Type B (PCR) (NotDetected) M. pneumoniae (PCR) (NotDetected) Parainfluenza 1 (PCR) (NotDetected) Parainfluenza 2 (PCR) (NotDetected) Parainfluenza 3 (PCR) (NotDetected) Parainfluenza 4 (PCR) (NotDetected) RSV (PCR) (NotDetected) Entero/Rhino (PCR) (NotDetected) 12/05/22 12/05/22 Range/Units 18:42 19:32 WBC (4.8-10.8) K/ul RBC (4.20-5.40) M/uL Hgb (12.0-16.0) g/dl Hct (37.0-47.0) % MCV (80.0-100.0) fL MCH (25.0-34.0) pg MCHC (32.0-36.0) g/dL RDW Std Deviation (36.4-46.3) fL RDW Coeff of Isa (11.5-14.5) % Plt Count (130-400) K/uL MPV (9.4-12.4) fL Immature Gran % (Auto) % Neut % (Auto) % Lymph % (Auto) % [place] % (Auto) % Eos % (Auto) % Baso % (Auto) % Neut # (Auto) (1.40-6.50) K/uL Lymph # (Auto) (1.2-3.4) K/uL [place] # (Auto) (0.11-0.59) K/uL Eos # (Auto) (0-0.50) K/uL Baso # (Auto) (0-0.2) K/uL Immature Gran # (Auto) (0.01-0.20) K/uL Sodium (136-145) mmol/L Potassium (3.5-5.1) mmol/L Chloride (98-107) mmol/L Carbon Dioxide (21-32) mmol/L Anion Gap (3-11) BUN (6-23) mg/dl Creatinine (0.6-1.2) mg/dl Est Cr Clr Drug Dosing ml/min Est GFR ( Amer) ml/min Est GFR (Non-Af Amer) ml/min BUN/Creatinine Ratio (10-20) Glucose (70-99(Fasting)) mg/dl Lactate (0.4-2.0) mmol/L Calcium (8.6-10.3) mg/dl Magnesium (1.7-2.4) mg/dl Total Bilirubin (0.2-1.0) mg/dl Direct Bilirubin (0-0.2) mg/dl AST (13-39) U/L ALT (7-52) U/L Alkaline Phosphatase (34-104) U/L Troponin I High Sens (0-14) pg/ml Total Protein (6.0-8.3) gm/dl Albumin (3.4-5.0) gm/dl Procalcitonin 0.19 (0-0.5) ng/ml Adenovirus (PCR) Not Detected (NotDetected) B. pertussis DNA (PCR) Not Detected (NotDetected) B.parapertussis DNA PCR Not Detected (NotDetected) C. pneumoniae DNA (PCR) Not Detected (NotDetected) Coronavirus OC43 (PCR) Not Detected (NotDetected) Coronavirus HKU1 (PCR) Not Detected (NotDetected) Coronavirus 229E (PCR) Not Detected (NotDetected) SARS-CoV-2 (PCR) DETECTED A* (NotDetected) Coronavirus NL63 (PCR) Not Detected (NotDetected) Human Metapneumovir PCR Not Detected (NotDetected) Influenza Type A (PCR) Not Detected (NotDetected) Influenza Type B (PCR) Not Detected (NotDetected) M. pneumoniae (PCR) Not Detected (NotDetected) Parainfluenza 1 (PCR) Not Detected (NotDetected) Parainfluenza 2 (PCR) Not Detected (NotDetected) Parainfluenza 3 (PCR) Not Detected (NotDetected) Parainfluenza 4 (PCR) Not Detected (NotDetected) RSV (PCR) Not Detected (NotDetected) Entero/Rhino (PCR) Not Detected (NotDetected) Administered Medications Discontinued Medications Acetaminophen (Acetaminophen 500 Mg Tab) 1,000 mg PO NOW STA Stop: 12/05/22 21:30 Last Admin: 12/05/22 21:35 Dose: 1,000 mg Documented By: JENNIE Albuterol (Albuterol Hfa 8 Gm Inhaler) 2 puffs INH NOW ONE Stop: 12/05/22 21:30 Last Admin: 12/05/22 21:35 Dose: 2 puffs Documented By: JENNIE Benzonatate (Benzonatate 100 Mg Capsule) 100 mg PO NOW ONE Stop: 12/05/22 21:30 Last Admin: 12/05/22 21:35 Dose: 100 mg Documented By: JENNIE Ceftriaxone Sodium (Rocephin) 2,000 mg in 70 mls @ 140 mls/hr IV NOW STA Stop: 12/05/22 18:42 Last Infusion: 12/05/22 20:08 Dose: 0 mls/hr Documented By: Admin: 12/05/22 19:28 Dose: 140 mls/hr Documented By: JENNIE Sodium Chloride (Nss 1000ml) 1,000 mls @ 999 mls/hr IV .Q1H1M FLOWER Stop: 12/05/22 19:15 Last Infusion: 12/05/22 20:09 Dose: 0 mls/hr Documented By: Admin: 12/05/22 18:47 Dose: 999 mls/hr Documented By: K Imaging Data Radiologist's Impression: Chest X-Ray 12/05/22 18:13 XR chest 1V portable HISTORY: 87 years-old Female Sepsis acute sepsis COMPARISON: Chest radiograph 10/09/2022, chest CT 07/26/2022. TECHNIQUE: AP view of the chest FINDINGS: Cardiac silhouette is mildly enlarged. No pneumothorax, pleural effusion or overt pulmonary edema. There is improved aeration of the left upper lung compared to the prior study. Mild linear residual scarring. The 4.6 cm lesion is better seen on the prior chest CT. Bones appear grossly intact. IMPRESSION: 1. No acute processes of the chest. 2. Improved aeration of the left upper lobe compared to the 10/09/2022 study. 3. Suspicious left upper lobe lesion is better evaluated on the prior chest CT. ACT 112: Negative or not required by law. The above report was generated using voice recognition software. It may contain grammatical, syntax or spelling errors. Electronically signed by: Edd Paz M.D. 12/05/2022 7:13 PM Discharge Plan Visit Data Chief Complaint: Flu Like Symptoms Stated Complaint: RADIATION LAST FRI,FEVER,MAY HAVE COLD, COUGH ED Provider: Federico Donohue Discharge Problem: Acute dehydration, Fever, COVID-19, ST segment changes on electrocardiogram, Elevated troponin I level Forms Stand Alone Forms: [facility] [place] DDStocks Prescriptions Prescriptions: No Action furosemide 40 mg Tablet 40 mg PO QAM vitamin E 1,000 unit Capsule 1,000 unit PO QAM metformin 500 mg Tablet 500 mg PO BID metoprolol succinate 100 mg Tablet Extended Release 24 Hr 100 mg PO QAM amlodipine 5 mg Tablet 5 mg PO HS aspirin 81 mg Tablet,Delayed Release (Dr/Ec) 81 mg PO HS potassium chloride [Klor-Con M20] 20 mEq Tablet,Er Particles/Crystals 20 meq PO BID coenzyme Q10 [CoQ-10] 100 mg Capsule 100 mg PO Q OTHER DAY Patient Comments: takes in the am losartan 50 mg Tablet 50 mg PO QAM atorvastatin 10 mg tablet 10 mg PO QAM pantoprazole 40 mg tablet,delayed release (DR/EC) 40 mg PO QAM Referrals Referrals: PCP,NO [Physician] -
[2022-12-05] MEDS ORDERED: cefTRIAXone SODIUM 2,000 MG/70 ML BAG IV STA (18:13)
[2022-12-05] MEDS ORDERED: SODIUM CHLORIDE 0.9% 1000ML 1,000 ML IV SCH (18:15)
[2022-12-05 19:00] LABS: Basophils # (auto) 0.01 K/uL (0-0.2); Basophils % (auto) 0.1 %; Eosinophils # (auto) 0.03 K/uL (0-0.50); Eosinophils % (auto) 0.4 %; Hematocrit (blood only) 38.4 % (37.0-47.0); Hemoglobin 12.4 g/dl (12.0-16.0); Immature Granulocytes # (auto) 0.04 K/uL (0.01-0.20); Immature Granulocytes % (auto) 0.5 %; Lymphocytes # (auto) 0.47 K/uL (1.2-3.4); Lymphocytes % (auto) 6.2 %; Mean Corpuscular Hemoglobin 27.8 pg (25.0-34.0); Mean Corpuscular Hgb Conc 32.3 g/dL (32.0-36.0); Mean Corpuscular Volume 86.1 fL (80.0-100.0); Mean Platelet Volume 10.8 fL (9.4-12.4); Monocytes % (auto) 6.6 %; Neutrophils # (auto) 6.51 K/uL (1.40-6.50); Neutrophils % (auto) 86.2 %; Platelet Count 142 K/uL (130-400); RDW Coefficient of Variation 15.1 % (11.5-14.5); Red Blood Count 4.46 M/uL (4.20-5.40); White Blood Count 7.56 K/ul (4.8-10.8)
--- NOTE | 2022-12-05 19:15 | XRay Report ---
XR chest 1V portable HISTORY: 87 years-old Female Sepsis acute sepsis COMPARISON: Chest radiograph 10/09/2022, chest CT 07/26/2022. TECHNIQUE: AP view of the chest FINDINGS: Cardiac silhouette is mildly enlarged. No pneumothorax, pleural effusion or overt pulmonary edema. Th ere is improved aeration of the left upper lung compared to the prior study. Mild linear residual sca rring. The 4.6 cm lesion is better seen on the prior chest CT. Bones appear grossly intact. IMPRESSION: 1. No acute processes of the chest. 2. Improved aeration of the left upper lobe compared to the 10/09/2022 study. 3. Suspicious left upper lobe lesion is better evaluated on the prior chest CT. ACT 112: Negative or not required by law. The above report was generated using voice recognition software. It may contain grammatical, syntax o r spelling errors. Electronically signed by: Edd Paz M.D. 12/05/2022 7:13 PM
[2022-12-05 19:23] LABS: Albumin Level 3.8 gm/dl (3.4-5.0); BUN Creatinine Ratio 9.9 (10-20); Bilirubin Direct 0.1 mg/dl (0-0.2); Bilirubin,Total 0.8 mg/dl (0.2-1.0); Calcium 9.5 mg/dl (8.6-10.3); Creatinine Clr Calc Pharmacy 36.1 ml/min; Est GFR (African American) 52.1 ml/min; Est GFR (Non-African American) 44.9 ml/min; Magnesium 1.7 mg/dl (1.7-2.4); Potassium 3.6 mmol/L (3.5-5.1); Total Protein 7.6 gm/dl (6.0-8.3)
[2022-12-05 19:29] LABS: Troponin I High Sensitivity 16.3 pg/ml (0-14)
[2022-12-05 20:33] LABS: Adenovirus PCR Not Detected (NotDetected); Bordetella parapertussis PCR Not Detected (NotDetected); Bordetella pertussis PCR Not Detected (NotDetected); Chlamydia pneumoniae PCR Not Detected (NotDetected); Coronavirus 229E PCR Not Detected (NotDetected); Coronavirus HKU1 PCR Not Detected (NotDetected); Coronavirus NL63 PCR Not Detected (NotDetected); Coronavirus OC43PCR Not Detected (NotDetected); Human Metapneumovirus PCR Not Detected (NotDetected); Influenza A PCR Not Detected (NotDetected); Influenza B PCR Not Detected (NotDetected); Mycoplasma pneumoniae PCR Not Detected (NotDetected); Parainfluenza Virus 1 PCR Not Detected (NotDetected); Parainfluenza Virus 2 PCR Not Detected (NotDetected); Parainfluenza Virus 3 PCR Not Detected (NotDetected); Parainfluenza Virus 4 PCR Not Detected (NotDetected); Respiratory Syncytial VirusPCR Not Detected (NotDetected); Rhinovirus/Enterovirus PCR Not Detected (NotDetected)
[2022-12-05 20:47] LABS: Coronavirus CoV-2 (COVID19)PCR DETECTED (NotDetected)
[2022-12-05] MEDS ORDERED: ACETAMINOPHEN 500 MG TAB PO STA (21:29)
[2022-12-05] MEDS ORDERED: ALBUTEROL HFA 8 GM INHALER INH ONE (21:29)
[2022-12-05] MEDS ORDERED: SODIUM CHLORIDE 0.9% 1000ML 500 ML IV ONE (21:29)
[2022-12-05] MEDS ORDERED: BENZONATATE 100 MG CAPSULE PO ONE (21:29)
--- NOTE | 2022-12-05 21:44 | History & Physical Report ---
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 Found to be positive for COVID. COVID-19 Overall mild symptoms with cough and congestion but does have some high fevers Oxygen saturation of 93% on room air Given no other obvious source of fever or her current symptoms, will initiate COVID treatment with Decadron 6 mg daily and remdesivir x10 days or until discharge Acetaminophen as needed for pain/fever Monitor for oxygen requirement Elevated troponin/ST changes on EKG Likely demand in the setting of her high fevers and acute illness Troponin mildly elevated to 16 Trend to peak Diabetes Continue home metformin Basal bolus insulin Glycemic consult placed in the setting of steroid use as above CAD/hypertension/hyperlipidemia Continue home aspirin, amlodipine, losartan, furosemide, metoprolol GERD Continue home pantoprazole 40 mg daily DVT prophylaxis: Heparin SQ Diet: Heart healthy, DM 2 Dispo: Admit to [facility] CODE STATUS: Full, discussed with patient and family (2) ST segment changes on electrocardiogram: (3) Elevated troponin I level: (4) GERD (gastroesophageal reflux disease): (5) CAD (coronary artery disease): (6) Pulmonary nodule: (7) Pulmonary mass: (8) HTN (hypertension): (9) Diabetes: (10) Hypercholesteremia: History of Present Illness Primary Care Provider: Kelli Magaña Beata Paige is an 87-year-old female with past medical history of 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 Patient states that she feels like she has a cold and has been coughing and a bit congested as of the past few days. She does not feel terribly sick but given her recent radiation therapy she became concerned when she developed a fever up to a reported 105F at home. No known sick contacts at this time. Patient denies headache, dizziness, nausea, vomiting, chest pain, palpitations, shortness of breath, abdominal pain, diarrhea. In the ED patient was found to be febrile up to 39 C, did have BP of 161/69 and oxygen saturation of 93% on room air. Bio fire was positive for COVID-19. Lab work showing normal white count, normal hemoglobin, normal platelet count, normal electrolytes, normal lactate. Did have a mild troponin elevation to 16.3. Procalcitonin negative at 0.19. EKG did show some nonspecific ST changes in the lateral leads. However, as above, patient denies chest pain, palpitations, or any other cardiac symptoms. Chest x-ray negative for acute process. She did receive acetaminophen for fever, Tessalon Perles, albuterol 2 puffs, 1 L normal saline bolus, and had received a dose of ceftriaxone prior to positive COVID test. Allergies Allergy/AdvReac Type Severity Reaction Status Date / Time Sulfa (Sulfonamide Allergy Intermediate RASH Verified 12/05/22 19:08 Antibiotics) scallops AdvReac Intermediate "awful Verified 12/05/22 19:08 sick, threw up" Home Medications Medication Instructions Recorded Confirmed Type amlodipine 5 mg tablet 5 mg PO HS 06/28/21 12/05/22 History aspirin 81 mg tablet,delayed 81 mg PO HS 06/28/21 12/05/22 History release coenzyme Q10 100 mg capsule 100 mg PO Q OTHER DAY 06/28/21 12/05/22 History (CoQ-10) furosemide 40 mg tablet 40 mg PO QAM 06/28/21 12/05/22 History losartan 50 mg tablet 50 mg PO QAM 06/28/21 12/05/22 History metformin 500 mg tablet 500 mg PO BID 06/28/21 12/05/22 History metoprolol succinate 100 mg 100 mg PO QAM 06/28/21 12/05/22 History tablet,extended release 24 hr potassium chloride 20 mEq 20 meq PO BID 06/28/21 12/05/22 History tablet,extended release(part/cryst) (Klor-Con M) vitamin E 670 mg (1,000 unit) 1,000 unit PO QAM 06/28/21 12/05/22 History capsule atorvastatin 10 mg tablet 10 mg PO QAM 04/21/22 12/05/22 History pantoprazole 40 mg tablet,delayed 40 mg PO QAM 05/24/22 12/05/22 History release Past Med/Surg History Medical History Abnormal PET of left lung Aspiration pneumonia Bilateral pneumonia 04/2022--per pt since this diagnosis she uses oxygen 2L at night through CPAP CAD (coronary artery disease) Diabetes NIDDM Discoid lupus GERD (gastroesophageal reflux disease) Hiatal hernia History of DVT (deep vein thrombosis) LE- AGE 20'S History of kidney stones HTN (hypertension) Hypercholesteremia Sleep apnea CPAP with 2L oxygen Surgical History History of cataract surgery History of cholecystectomy History of colonoscopy History of D&C MULTIPLE History of eye surgery History of hysterectomy History of vein stripping 30 YR AGO Family History Other No family history of adverse response to anesthesia Social History Smoking Status: Never smoker Second Hand Exposure: No; Do You Dip or Chew Tobacco: No; Tobacco Cessation Education Requested by Patient: No Hx Alcohol Use: No Hx Substance Use: No Preferred Language: [place] Communication Ability: Effective Dual Hose Cementer Required: No Beliefs That Will Affect Care: None Current Living Situation: Alone How many Children do You have: 3 Other Information That Helps Us Care for You: No Feels Safe at Home: Yes Safety Concerns: Feels Safe At This Time during the past year weight has: remained stable Assistive Devices: Cane and Walker Review of Systems Review of Systems: per HPI Physical Exam Physical Exam: GENERAL: A&Ox3. NAD. HEENT: PERRL, EOMI. Moist mucous membranes. NECK: No JVD. No lymphadenopathy. CHEST/LUNGS: CTAB A/P. No crackles, wheezes, rales, rhonchi. HEART: RRR. No m/g/r. No carotid bruits. ABDOMEN: NT/ND, soft. BS+ x4 EXTREMITIES: No cyanosis, no clubbing, no edema SKIN: Warm and dry. No rashes or lesions. PSYCHIATRIC: Euthymic affect, no SI, no pressured speech, no hallucinations NEUROLOGIC: No FND. CN II-XII grossly intact. Results & Data Results & Data Vital Signs (Past 12 Hours) Vital Signs Temp Pulse Pulse Resp BP BP Pulse Ox 12/05/22 21:07 39.0 C H 90 18 161/69 H 93 12/05/22 19:13 73 18 159/95 H 95 12/05/22 19:05 96 H 12/05/22 17:56 37.6 C H 96 H 20 159/83 H 93 O2 Del Method 12/05/22 21:07 Room Air 12/05/22 19:13 12/05/22 19:05 12/05/22 17:56 Room Air Supervising Physician Co-Signing Physician Notes Attending addendum: I have physically seen this patient, have supervised the medical residents activities, and agree with the H&P unless as otherwise noted. Assessment and Plan: Acute respiratory failure with hypoxia/COVID-19 infection- Decadron 6 mg IV daily Remdesivir IV per protocol Acetaminophen 650 mg p.o. every 6 hours as needed for pain or fever Nasal cannula oxygen, titrate to keep pulse ox greater than or equal to 94% Elevated troponin/NSTEMI/CAD/hypertension The patient will be admitted to telemetry for serial cardiac enzymes, serial EKG's, cardiac rhythm monitoring and a 2-D echocardiogram with Dopplers. Troponin 16.3 on admission Likely type II supply demand mismatch Continue aspirin, amlodipine, losartan, furosemide and metoprolol with hold parameters Diabetes mellitus- Hold metformin Placed on Accu-Cheks with NovoLog SSI Check a hemoglobin A1c Hyperlipidemia- Continue atorvastatin 10 mg daily Check a fasting lipid panel GERD- Continue pantoprazole Remaining orders and notations as noted Resident Activity Tracking Resident Involvement: Resident Care Provided Care Provided: Adult Hospital Medicine
[2022-12-05] MEDS ORDERED: GLUCOSE 10 TAB/TUBE PO PRN (23:51)
[2022-12-05] MEDS ORDERED: GLUCOSE 40% GEL 15 GM TUBE PO PRN (23:51)
[2022-12-05] MEDS ORDERED: ALUMINUM/MAGNESIUM SUSP 30 ML UDC PO PRN (23:51)
[2022-12-05] MEDS ORDERED: PHARMACY GLYCEMIC MGMT CONSULT PRN (23:51)
[2022-12-05] MEDS ORDERED: GLUCAGON FOR INJ 1 MG VIAL SQ PRN (23:51)
[2022-12-05] MEDS ORDERED: CARBOHYDRATES FOR HYPOGLYCEMIA PO PRN (23:51)
[2022-12-05] MEDS ORDERED: POLYETHYLENE (MIRALAX) 17 GM PACK PO PRN (23:51)
[2022-12-05] MEDS ORDERED: ACETAMINOPHEN 1,000 MG/100 ML VIAL IV PRN (23:51)
[2022-12-05] MEDS ORDERED: DEXTROSE 50% 50 ML SYRINGE IV PRN (23:51)
[2022-12-05] MEDS ORDERED: ONDANSETRON INJ 2 MG/ML 2 ML VIAL IV PRN (23:51)
[2022-12-05] MEDS ORDERED: NON-FORMULARY MEDICATION (Coenzyme Q10 [Coq-10] 100 mg Capsule) PO SCH (23:51)
[2022-12-06] MEDS ORDERED: REMDESIVIR 200 MG in SODIUM CHLORIDE 0.9% 210 ML IV ONE
[2022-12-06 07:02] LABS: Basophils # (auto) 0.02 K/uL (0-0.2); Basophils % (auto) 0.4 %; Eosinophils # (auto) 0.01 K/uL (0-0.50); Eosinophils % (auto) 0.2 %; Hematocrit (blood only) 33.9 % (37.0-47.0); Hemoglobin 10.8 g/dl (12.0-16.0); Immature Granulocytes # (auto) 0.03 K/uL (0.01-0.20); Immature Granulocytes % (auto) 0.6 %; Lymphocytes # (auto) 0.43 K/uL (1.2-3.4); Lymphocytes % (auto) 8.8 %; Mean Corpuscular Hemoglobin 27.6 pg (25.0-34.0); Mean Corpuscular Hgb Conc 31.9 g/dL (32.0-36.0); Mean Corpuscular Volume 86.7 fL (80.0-100.0); Mean Platelet Volume 10.5 fL (9.4-12.4); Monocytes # (auto) 0.46 K/uL (0.11-0.59); Monocytes % (auto) 9.4 %; Neutrophils # (auto) 3.92 K/uL (1.40-6.50); Neutrophils % (auto) 80.6 %; Platelet Count 114 K/uL (130-400); RDW Coefficient of Variation 15.4 % (11.5-14.5); RDW Standard Deviation 48.1 fL (36.4-46.3); Red Blood Count 3.91 M/uL (4.20-5.40); White Blood Count 4.87 K/ul (4.8-10.8)
[2022-12-06 07:16] LABS: Albumin Level 3.2 gm/dl (3.4-5.0); BUN Creatinine Ratio 10.6 (10-20); Bilirubin,Total 0.4 mg/dl (0.2-1.0); Calcium 8.5 mg/dl (8.6-10.3); Creatinine Clr Calc Pharmacy 42.6 ml/min; Est GFR (African American) 63.7 ml/min; Est GFR (Non-African American) 54.9 ml/min; Globulin 3.3 gm/dl (2.5-4.0); Magnesium 1.8 mg/dl (1.7-2.4); Potassium 3.4 mmol/L (3.5-5.1); Total Protein 6.5 gm/dl (6.0-8.3)
[2022-12-06] MEDS ORDERED: IBUPROFEN 600 MG TAB PO PRN (07:39)
[2022-12-06] MEDS ORDERED: metFORMIN HCL 500 MG TAB PO SCH (08:00)
--- NOTE | 2022-12-06 08:24 | Hospitalist Progress Note ---
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 Found to be positive for COVID. COVID-19 Overall mild symptoms with cough and congestion but does have some high fevers Oxygen saturation of 97% on room air Given no other obvious source of fever or her current symptoms, will initiate COVID treatment with Decadron 6 mg daily and remdesivir x10 days or until discharge Acetaminophen as needed for pain/fever, may alternate with ibuprofen Monitor for oxygen requirement Elevated troponin/ST changes on EKG Likely demand in the setting of her high fevers and acute illness Troponin mildly elevated to 20.3 downtrending Diabetes hold home metformin Basal bolus insulin Glycemic consult placed in the setting of steroid use as above CAD/hypertension/hyperlipidemia Continue home aspirin, amlodipine, losartan, furosemide, metoprolol GERD Continue home pantoprazole 40 mg daily DVT prophylaxis: Heparin SQ Diet: Heart healthy, DM 2 Dispo: Admit to [facility] CODE STATUS: Full, discussed with patient and family (2) ST segment changes on electrocardiogram: (3) Elevated troponin I level: (4) GERD (gastroesophageal reflux disease): (5) CAD (coronary artery disease): (6) Pulmonary nodule: (7) Pulmonary mass: (8) HTN (hypertension): (9) Diabetes: (10) Hypercholesteremia: Admission and Anticipated Discharge Date Admission Date: December 05, 2022 Supervising Physician Co-Signing Physician Notes I personally examined the patient and verified all ariza points of history and exam, discussed case, and agree with decision making with Dr Ott. Feeling better overall. Not on oxygen except for with her CPAP, still at 2 L whenever I see her. Later weaned, and on room air. Still feeling a little bit ill, still fevers off and on. Overall though, notes that she does not feel too bad. Vitals noted, in general she is awake and alert oriented pleasant no distress. HEENT normocephalic atraumatic mucous membranes moist. Lungs quiet but clear no rales rhonchi or wheezes no accessory muscle use good effort no conversational dyspnea. Skin without rashes, pallor, icterus. CBC, CMP, troponin, BioFire all noted, chest x-ray noted. COVID-19mild hypoxiaimproving. Continue remdesivir and dexamethasone for now, wean oxygenhopefully home soon. Very mild demand ischemia due to above. Overall improving nicely, anticipate hopefully home tomorrow. Subjective Patient seen at bedside, calm comfortable cooperative. States she is mostly bothered by fever and dry cough, denies any headache dizziness lightheadedness nausea vomitting loss of appetite chest or abd issues with bowel or bladder, or weakness. Tolerating 2L NC well, later downgraded to room air. Patient states she would like to be in the hospital one more day to ensure her fever is well controlled. Physical Exam Constitutional: WD/WN, vitals as above Eyes: PERRL, conjunctivae normal, anicteric sclerae ENMT: external ear and nose normal, oropharynx normal Neck: trachea midline, no thyromegaly Respiratory: normal respiratory effort Auscultation: + wheezes (during inspiration on b/l upper quadrants) Cardiovascular: RRR, no murmur, no edema Chest (Breasts): normal inspection/palpation of breasts Gastrointestinal (Abdomen): Inspection/Auscultation: abdomen normal to inspection Percussion/Palpation: abdomen soft; abdomen nontender Skin: no rashes, warm and dry Results & Data Results & Data Vital Signs (Past 12 Hours) Vital Signs Temp Pulse Resp BP Pulse Ox O2 Del Method O2 Flow Rate 12/06/22 08:23 37.1 C 73 16 111/56 L 98 Nasal Cannula 2 12/06/22 06:04 38.1 C H 12/06/22 05:47 38.5 C H 12/05/22 23:40 Nasal Cannula 2 12/05/22 23:40 36.8 C 78 16 146/78 H 98 Nasal Cannula 2 12/05/22 21:07 39.0 C H 90 18 161/69 H 93 Room Air Resident Activity Tracking Resident Involvement: Resident Care Provided Care Provided: Adult Hospital Medicine
[2022-12-06] MEDS ORDERED: NovoLIN-N (NPH) PER UNIT CHARGE SQ ONE (08:45)
[2022-12-06] MEDS ORDERED: LANTUS PER UNIT CHARGE SQ SCH (09:00)
[2022-12-06] MEDS: ACETAMINOPHEN 1,000 MG/100 ML VIAL IV SCH ×3 (09:05→23:58)
[2022-12-06] MEDS: dexAMETHasone 6 MG in SYRINGE 0 ML IV SCH (09:11)
[2022-12-06] MEDS: ATORVASTATIN 10 MG TAB PO SCH (09:12)
[2022-12-06] MEDS: TOCOPHERYL, DL-ALPHA 100 UNITS CAP PO SCH (09:14)
[2022-12-06] MEDS: HEPARIN SOD 5,000 UNIT/0.5 ML VIAL SQ SCH ×2 (09:14→20:30)
[2022-12-06] MEDS: METOPROLOL SUCC 50MG EXT REL TAB PO SCH (09:15)
[2022-12-06] MEDS: LOSARTAN POTASSIUM 50 MG TAB PO SCH (09:15)
[2022-12-06] MEDS: FUROSEMIDE 40 MG TAB PO SCH (09:16)
[2022-12-06] MEDS: PANTOprazole 40 MG TAB PO SCH (09:16)
[2022-12-06] MEDS: POTASSIUM CHLORIDE CRTAB 20 MEQ TABCR PO SCH ×2 (09:16→20:31)
[2022-12-06] MEDS: INSULIN ASPART PER UNIT CHARGE SC SCH ×4 (09:32→21:17)
[2022-12-06] MEDS ORDERED: BENZONATATE 100 MG CAPSULE PO PRN (09:42)
--- NOTE | 2022-12-06 10:01 | Pharmacy Report ---
Pharmacy Glycemic Short Note 2 - Date of Service December 06, 2022 - Glycemic Short BSG Results (Last 24 hours): 12/05/22 12/05/22 12/06/22 18:42 23:39 06:41 Glucose 157 H 132 H POC Glucose 116 H 12/06/22 08:25 Glucose POC Glucose 105 H OUTPATIENT ANTIDIABETIC REGIMEN: * Metformin 500 BID A1C pending ASSESSMENT: * Beata Paige is an 87-year-old female with past medical history of T2DM and CKD III who was admitted yesterday for COVID19. * Yesterday, Admitting random BSG 157 mg/dL and FBSG this morning was 105 mg/dL * Due to Dexamethasone 6 mg IV started today, entered NPH 10 units to be given with the dexamethasone. Will trend BSG the rest of the day PLAN FOR INPATIENT GLYCEMIC CONTROL: * Hold outpatient oral diabetes medications * Basal insulin * NPH 10 units SQ w/ dexamethasone * Bolus insulin * NovoLog per scale ACHS or Q6hrs while NPO * Goal Range: Low 120 mg/dL - High 160 mg/dL * Correction Factor: 30 mg/dL/unit * Nutritional / Prandial insulin per carb ratio of 1 unit per 10 grams CHO consumed
[2022-12-06 13:22] LABS: Estimated Average Glucose 146 mg/dl; Hemoglobin A1C 6.7 % (4.5-5.6)
--- NOTE | 2022-12-06 18:35 | Billing Data ---
Date of Service December 06, 2022 Coding Level of Care Code 53730 SUB INP/OBS CARE MIN
[2022-12-06 19:33] LABS: Appearance Urine Clear (Clear); Bilirubin Urine Negative (Negative); Blood Urine Negative (Negative); Color Urine Yellow; Glucose Urine UA Negative (Negative); Ketones Urine Negative (Negative); Leukocyte Esterase Urine Negative (Negative); Nitrite Urine Negative (Negative); Protein Urine Negative (Negative); Specific Gravity Urine 1.015 (1.000-1.030); Urobilinogen Urine Negative (Negative); pH Urine 6.5 (4.5-7.5)
[2022-12-06] MEDS ORDERED: REMDESIVIR 100 MG in SODIUM CHLORIDE 0.9% 230 ML IV SCH (20:00)
[2022-12-06] MEDS: guaiFENesin 600 MG TABCR PO SCH (20:31)
[2022-12-06] MEDS ORDERED: amLODIPine BESYLATE 5 MG TAB PO SCH (21:00)
[2022-12-06] MEDS ORDERED: ASPIRIN 81 MG ECTAB PO SCH (21:00)
--- NOTE | 2022-12-06 21:17 | Billing Data ---
Date of Service December 06, 2022 Coding Level of Care Code 70962 INT INP/OBS CARE
--- NOTE | 2022-12-06 22:46 | Electrocardiogram Report ---
Test Reason : Blood Pressure : / mmHG Vent. Rate : 095 BPM Atrial Rate : 095 BPM P-R Int : 150 ms QRS Dur : 084 ms QT Int : 332 ms P-R-T Axes : 063 -02 054 degrees QTc Int : 417 ms Normal sinus rhythm Nonspecific ST and T wave abnormality Abnormal ECG When compared with ECG of 24-MAY-2022 12:07, Inferior infarct is no longer Present Confirmed by Khurram Patricia ([id number]) on 12/06/2022 10:46:30 PM Referred By: REFERRED SELF Confirmed By:Khurram Patricia
[2022-12-07] MEDS ORDERED: INSULIN ASPART PER UNIT CHARGE SC ONE
[2022-12-07] MEDS: ACETAMINOPHEN 1,000 MG/100 ML VIAL IV SCH (06:15)
[2022-12-07 06:54] LABS: Hematocrit (blood only) 36.6 % (37.0-47.0); Hemoglobin 11.6 g/dl (12.0-16.0); Mean Corpuscular Hemoglobin 27.6 pg (25.0-34.0); Mean Corpuscular Hgb Conc 31.7 g/dL (32.0-36.0); Mean Corpuscular Volume 86.9 fL (80.0-100.0); Mean Platelet Volume 11.3 fL (9.4-12.4); Platelet Count 108 K/uL (130-400); RDW Standard Deviation 47.5 fL (36.4-46.3); Red Blood Count 4.21 M/uL (4.20-5.40); White Blood Count 4.31 K/ul (4.8-10.8)
[2022-12-07 07:11] LABS: Est GFR (African American) 59.1 ml/min; Potassium 4.1 mmol/L (3.5-5.1)
[2022-12-07] MEDS: INSULIN ASPART PER UNIT CHARGE SC SCH (08:55)
[2022-12-07] MEDS ORDERED: INSULIN HUMAN NPH SC SCH (09:00)
[2022-12-07] MEDS ORDERED: NovoLIN-N (NPH) PER UNIT CHARGE SC SCH (09:00)
[2022-12-07] MEDS: TOCOPHERYL, DL-ALPHA 100 UNITS CAP PO SCH (09:06)
[2022-12-07] MEDS: dexAMETHasone 6 MG in SYRINGE 0 ML IV SCH (09:06)
[2022-12-07] MEDS: ATORVASTATIN 10 MG TAB PO SCH (09:06)
[2022-12-07] MEDS: FUROSEMIDE 40 MG TAB PO SCH (09:07)
[2022-12-07] MEDS: HEPARIN SOD 5,000 UNIT/0.5 ML VIAL SQ SCH (09:07)
[2022-12-07] MEDS: LOSARTAN POTASSIUM 50 MG TAB PO SCH (09:07)
[2022-12-07] MEDS: guaiFENesin 600 MG TABCR PO SCH (09:07)
[2022-12-07] MEDS: POTASSIUM CHLORIDE CRTAB 20 MEQ TABCR PO SCH (09:08)
[2022-12-07] MEDS: METOPROLOL SUCC 50MG EXT REL TAB PO SCH (09:08)
[2022-12-07] MEDS: PANTOprazole 40 MG TAB PO SCH (09:08)
--- NOTE | 2022-12-07 18:06 | Discharge Summary ---
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 Patient states that she feels like she has a cold and has been coughing and a bit congested as of the past few days. She does not feel terribly sick but given her recent radiation therapy she became concerned when she developed a fever up to a reported 105F at home. No known sick contacts at this time. Patient denies headache, dizziness, nausea, vomiting, chest pain, palpitations, shortness of breath, abdominal pain, diarrhea. In the ED patient was found to be febrile up to 39 C, did have BP of 161/69 and oxygen saturation of 93% on room air. Bio fire was positive for COVID-19. Lab work showing normal white count, normal hemoglobin, normal platelet count, normal electrolytes, normal lactate. Did have a mild troponin elevation to 16.3. Procalcitonin negative at 0.19. EKG did show some nonspecific ST changes in the lateral leads. However, as above, patient denies chest pain, palpi tations, or any other cardiac symptoms. Chest x-ray negative for acute process. She did receive acetaminophen for fever, Tessalon Perles, albuterol 2 puffs, 1 L normal saline bolus, and had received a dose of ceftriaxone prior to positive COVID test. Principal Diagnosis covid, mild hypoxia Discharge Exam gen aaox3 pleasant nad heent nc at mmm breathing unlabored and on room air no accessory muscles or conversational dyspnea good effort skin no rashes no pallor or icterus neuro no focal deficits Discharge Data Allergies Allergy/AdvReac Type Severity Reaction Status Date / Time Sulfa (Sulfonamide Allergy Intermediate RASH Verified 12/05/22 19:08 Antibiotics) scallops AdvReac Intermediate "awful Verified 12/05/22 19:08 sick, threw up" Consultations 12/05/22 20:57 ED Decision to Admit Stat Hospital Course (1) COVID-19: Beata Paige is an 87-year-old female with past medical history of 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 Found to be positive for COVID. COVID-19 did require supplemental O2 (2L) for a little while but fortunately quickly weaned. because of O2 requirement - started on remdesivir and decadron. quickly stabilized, now off O2 since yesterday afternoon and walking without desaturation - stable for home. no clear need for further antivirals. short burst of decadron. see written discharge instructions Elevated troponin/ST changes on EKG Likely demand in the setting of her high fevers and acute illness fortunately mild - troponin 16 - 20 - 17 and no cardiac symptoms safe/ stable for home (2) ST segment changes on electrocardiogram: (3) Elevated troponin I level: (4) GERD (gastroesophageal reflux disease): (5) CAD (coronary artery disease): (6) Pulmonary nodule: (7) Pulmonary mass: (8) HTN (hypertension): (9) Diabetes: (10) Hypercholesteremia: Total Time Total Time Spent Total Time Spent (In Minutes): <30 Discharge Plan Discharge Items Patient Disposition: Home - Self-Care Reason For Visit: FEVER, COUGH Discharge Diagnosis: COVID with fever Activity: Resume your previous activity Non-emergency contact: Primary Care Provider Call non-emergency contact if: you have any medication questions, your symptoms worsen, your pain is concerning for you and you have a fever Follow-up/Referrals: PCP,NO [Primary Care Provider] - Diet: Regular Addtl Attending Provider Instructions: Covid - while you were the "sickest" person i've seen in months as it relates to covid, the great news about that is that truly you were just sick enough to need us in the hospital (ie fortunately this whole thing is starting to fizzle out). you turned the corner really quickly and really nicely - and i think you're going to recover from this at a pace similar to what we'd see if someone just had a bad case of flu. we treated with an antiviral (remdesivir) for the time you were here in the hospital. with how quickly you're getting better, i don't think we'd really get you that much benefit continuing a course of antivirals (paxlovid) - especially since paxlovid can cause upset stomach (and therefore the side effects of the medicine might actually be worse than the "side effects" of letting your body do the rest as far as getting rid of the covid). if you do feel worse at all over the next 1-2 days, it would be reasonable to "fall back" on a course of paxlovid, but i don't think you'll need it -fever: you don't need to be aggressive/proactive, but like we discussed, it is fairly common for the fever to last annoyingly long with covid. to that end, it would be perfectly OK to take tylenol (acetaminophen) 650mg up to 3 times a day, but it would also be perfectly OK to wait/see how you feel/and just take tylenol IF you continue to have temps. as long as the overall severity of the temperatures gets a little better each day (so for example your highest yesterday was 101.3F, so if you bump a temp today we'd expect it to be the same or lower) and as long as you otherwise feel better except for how you feel when the temp is up, i wouldn't worry too much about potentially having fevers/low grade fevers off and on the next few days. however, if the temps are getting worse (or more importantly if you're feeling worse) then we would want you seen right away to evaluate for any kind of bacterial infection (like pneumonia) that can sometimes pop up while our immune system is distracted by covid (to be clear: nothing looks at all like that is happening now, and you might not spike a temperature again as you're turning the corner with this) -cough/congestion: the cough and mucous should slowly get better over the next few weeks - it might take a month for the cough to totally go away - but as long as you're seeing improvement/progress, it's no surprising. as we discussed, medicines like mucinex don't often provide that much help, but since they're nearly harmless it's OK to try to take it if you feel like it's maybe helping - and at the same time it's also OK to simply not take anything and let your body fix the cough/mucous/etc. we'll have you take a few more days of steroids (dexamethasone, 6mg in the morning - next dose tomorrow) to help settle out the inflammation/etc - which should help the cough get better faster -fatigue: after any bad viral illness, it's really common for fatigue to take a while to go away. that will probably be the last thing to get better - and might take until early January until you truly feel like yourself again. make sure you're getting plenty of sleep (~8 hours a night) and you're taking care of yourself as far as eating/drinking enough (about 60 ounces fluids a day minimum) and doing some light activity (taking a walk, etc) to help the fatigue go away more quickly, but realize that this part of recovery might be annoyingly slow. to help you keep your sanity, look at how you feel in 3-4 day increments, rather than looking for improvement day-to-day. there will probably be day-to-day improvement, but it'll be slow enough that it's tough to criminal judge. if you look at improvement over a longer span of time, that should help you be able to better see that you are improving! Pending Studies at Discharge: No Stand-Alone Forms: [facility] [employer], Smoking Cessation Medications and DC Order Prescriptions: New dexamethasone 6 mg tablet 6 mg PO DAILY Qty: 3 0RF Continued furosemide 40 mg Tablet 40 mg PO QAM vitamin E 1,000 unit Capsule 1,000 unit PO QAM metformin 500 mg Tablet 500 mg PO BID metoprolol succinate 100 mg Tablet Extended Release 24 Hr 100 mg PO QAM amlodipine 5 mg Tablet 5 mg PO HS aspirin 81 mg Tablet,Delayed Release (Dr/Ec) 81 mg PO HS potassium chloride [Klor-Con M20] 20 mEq Tablet,Er Particles/Crystals 20 meq PO BID coenzyme Q10 [CoQ-10] 100 mg Capsule 100 mg PO Q OTHER DAY Patient Comments: takes in the am losartan 50 mg Tablet 50 mg PO QAM atorvastatin 10 mg tablet 10 mg PO QAM pantoprazole 40 mg tablet,delayed release (DR/EC) 40 mg PO QAM Discharge Orders: Discharge Order (Routine); Ordered 12/07/22 Ordered By: Sonny Rasheed/Other Patient Handouts: COVID-19 Home Care, Managing Type 2 Diabetes Admission Data Admit Date/Time: 12/05/22 22:17 Attending Provider: Sonny Huddleston Admit Provider: David Lindsey Primary Care Provider: PCP,NO Other Providers: Elias Tapia Other Interventions: Discharge Summary Assessment (RN) Last Done: 12/07/22 10:23 Coding Level of Care Code 11234 IN/OBS DISCH 30 MIN/LESS Diagnoses COVID-[address] segment changes on electrocardiogram R94.31 Elevated troponin I level R77.8 GERD (gastroesophageal reflux disease) K21.9 CAD (coronary artery disease) I25.10 Pulmonary nodule R91.1 Pulmonary mass R91.8 HTN (hypertension) I10 Diabetes E11.9 Hypercholesteremia E78.00
== END 2022-12-07 12:35 | disposition home or self-care (01) | DRG 178 ==
LOC: ED 17:51 → 3W 22:17 → SUATTDRO 22:17 → 3W 23:07